=== PATIENT | female | born 1990 | race Caucasian/White ===

== ENCOUNTER 2019-10-22 09:29 | Outpatient (RCR) | payer OTHER, SELFPAY ==
[2019-10-22 11:02] LABS: Hematocrit 35.9 % (37.0-47.0); Hemoglobin 12.3 g/dL (12.0-15.0)
[2019-10-22 11:11] LABS: Glucose 1 Hour PP 50gm Dose 151 mg/dL
[2019-10-22 11:53] LABS: HIV 1/2 Ab P24 Ag Result Negative (Negative)
[2019-10-22] MEDS: RHO(D) IMMUNE GLOBULIN 300 MCG SYRINGE IM (16:02)
[2019-10-23 08:39] LABS: Rapid Plasma Reagin Non-Reactive (NonReactive)
== END 2020-01-20 23:59 | disposition home or self-care (01) ==
LOC: ANHLAB 09:29
PROVIDERS: PCP Internal Medicine; Visit Provider Obstetrics & Gynecology
DX: Z36.89 Encounter for other specified antenatal screening (principal); Z29.13 Encounter for prophylactic Rho(D) immune globulin; O36.0130 Maternal care for anti-D [Rh] antibodies, third trimester, not applicable or unspecified; Z3A.00 Weeks of gestation of pregnancy not specified
CPT/HCPCS: 36415; 82947; 85014; 85018; 86592; 86703; 86850; 86900; 86901; 90384; 96372; G0432; J2790

== ENCOUNTER 2020-01-07 09:07 | Outpatient (CLI) | payer OTHER, SELFPAY ==
[2020-01-07 09:26] LABS: Basophils Absolute Auto 0.1 K/mm3 (0.0-0.1); Basophils Percent Auto 0.5 % (0.2-1.2); Eosinophils Absolute Auto 0.1 K/mm3 (0-0.3); Eosinophils Percent Auto 0.3 % (0-4.4); Hematocrit 39.5 % (37.0-47.0); Hemoglobin 13.5 g/dL (12.0-15.0); Immature Granulocyte Absolute 0.33 K/mm3 (0.00-0.031); Immature Granulocyte Percent A 2.2 % (0-0.5); Lymphocytes Absolute Auto 2.51 K/mm3 (0.9-3.2); Lymphocytes Percent Auto 17.1 % (18.3-44.2); Mean Corpuscular HGB Conc 34.2 g/dl (32-36); Mean Corpuscular Hemoglobin 33.5 pg (26-34); Mean Platelet Volume 9.8 fl (7.4-10.4); Monocytes Absolute Auto 0.9 K/mm3 (0.1-0.6); Monocytes Percent Auto 5.9 % (2.6-8.5); Neutrophils Absolute Auto 10.9 K/mm3 (1.3-6.7); Platelet Count Result 222 k/mm3 (150-375); Red Blood Count 4.03 M/mm3 (4.2-5.4); Red Cell Distribution Width 13.1 % (11.5-14.5); White Blood Count 14.7 K/mm3 (4.5-10.0)
[2020-01-09 06:54] LABS: Rapid Plasma Reagin Non-Reactive (NonReactive)
== END 2020-01-07 09:08 | disposition home or self-care (01) ==
PROVIDERS: PCP Internal Medicine; Visit Provider Obstetrics & Gynecology
DX: Z34.93 Encounter for supervision of normal pregnancy, unspecified, third trimester (principal); Z3A.00 Weeks of gestation of pregnancy not specified
CPT/HCPCS: 36415; 85025; 86592; 86900; 86901

== ENCOUNTER 2020-01-08 05:35 | Inpatient (IN) | payer OTHER, SELFPAY ==
--- NOTE | 2019-12-17 16:12 | PC.NURSE ---
PATIENT STATES BABY IS BREECH AT THIS TIME. PATIENT STATES SHE IS HAVING AN ULTRASOUND ON MONDAY AND IF BABY IS STILL BREECH SHE WILL BE A SCHEDULE C/S INSTRUCTED PATIENT IF SHE IS A C/S ,SHE WILL NEED TO GET LABS DRAWN THE DAY BEFORE SURGERY, IF SURGERY IS ON MONDAY-LABS DRAWN ON MONDAY--REQUISITION GIVEN TO PATIENT. PATIENT INSTRUCTED SHE WILL NEED TO BE IN OB 2 HOURS BEFORE SURGERY AND NOTHING BY MOUTH AT MIDNIGHT THE NIGHT BEFORE SURGERY. PATIENT VERBALIZED HER UNDERSTANDING
[2020-01-08] VITALS (28 sets, daily range): BP systolic 101–144; BP diastolic 49–84; PULSE 68–104; RESP 16–20; TEMP 36.8–37.2; O2SAT 97–100; BMI 28.3
--- NOTE | 2020-01-08 06:39 | LDADM ---
This patient, Love Dhaliwal, was admitted to Labor/Delivery/Recovery 120 on 01/08/20 at 05:35. Plans for labor, pain management and were discussed with patient. Patient/family oriented to hospital policies and general routines including ID bracelet, bed and alarms, visiting hours, pain management, procedures, bathroom and other care routines, personal items, smoking policy, room service/diet and guest tray routines, infant security routines, and visiting hours. Patient/Family are encouraged to report perceived risks to care and to ask questions if they do not understand what they are told or what they should do. See OBIX for further documentation.
[2020-01-08] MEDS: LACTATED RINGERS 1,000 ML 125 ML IV CONT ×2 (06:59→07:26)
--- NOTE | 2020-01-08 07:16 | WPDANESEPPF ---
Anes - Initial Pre Proc Eval Procedure: Operation Date: 01/08/20 07:30 Proposed Procedures p Primary Section - Senait Begum MD Date/Time: 01/08/20 07:16 Surgeon: Senait Begum MD Pre Op Diagnosis: Patient Data Age: 29 Gender: F Height: 5 ft 4 in Weight: 75 kg Last Vital Signs Temp 36.9 C 01/08/20 06:48 Pulse 92 01/08/20 06:48 Resp 16 01/08/20 06:48 BP 128/69 01/08/20 06:48 Pulse Ox 100 01/08/20 06:48 Allergies Allergy/AdvReac Type Severity Reaction Status Date / Time No Known Allergies Allergy Verified 12/17/19 15:39 Home Medications Medication Instructions Recorded Confirmed Type PNV cmb#95-ferrous fumarate-FA 1 tablet PO DAILY 12/17/19 12/17/19 History [] Patient hx anesthesia problems: none Family hx anesthesia problems: none PMFSH Family History Family History Grandparent Diabetes mellitus Mother Rheumatoid arthritis Social History Social History Smoking status: Never smoker Alcohol intake: current Substance use: never Gender identity (if verbalized by the patient): Female Spiritual care concerns: No Anes - Eval Final PreProcedure Day of Procedure 01/08/20 07:16 Patient weight: overweight Heart: regular rate and rhythm Lungs: clear to auscultation Airway: Mallampati scale class II Neurological: alert and oriented Last oral intake: >/= 8 hours ASA classification: II Emergent: no Anesthetic plan: proceed Anesthesia type and monitoring: regional spinal and standard monitoring Informed Consent: The patient's anesthetic plan and its attendant risks and benefits were discussed with the patient/family/POA. Questions were solicited and answers provided to the satisfaction of the patient/family/POA.
--- NOTE | 2020-01-08 07:25 | PM.IMHP ---
H&P: HPI History of Present Illness Chief complaint: Narrative: Love Dhaliwal is a 29 year old female 1 at term with a baby in the breech presentation. It is ronnie breech. We have agreed to perform delivery. She understands that injuries may result from the surgery. She understands that injuries can result in hospitalization, severe illness, and more surgery. She understands risk of hemorrhage and infection. Review of Systems Constitutional: Constitutional: Reports no additional constitutional complaints, Denies fatigue, Denies headache(s), Denies lethargy and Denies weakness Eyes: Eyes: Reports no additional eye complaints, Denies blurry vision and Denies photophobia ENT: Reports as per HPI, Denies headache(s) and Denies neck pain Cardiovascular: Cardiovascular: Denies chest pain, Denies diaphoresis, Denies leg edema, Denies palpitations and Denies dyspnea Respiratory: Respiratory: Denies hemoptysis, Denies dyspnea and Denies wheezing Gastrointestinal: Gastrointestinal: Denies abdominal pain, Denies melena, Denies bloating, Denies hematochezia, Denies nausea and Denies vomiting Genitourinary: Genitourinary: Reports no additional female genitourinary complaints Musculoskeletal: Musculoskeletal: Denies joint swelling, Denies neck pain, Denies numbness and Denies stiffness Neurologic: Denies Abnormal speech present, Denies confusion, Denies headache(s), Denies numbness and Denies weakness Psychiatric: Psychiatric: Denies anxiety, Denies confusion, Denies depression, Denies homicidal ideation and Denies suicidal ideation Endocrine: Endocrine: Denies fatigue and Denies palpitations Allergic/Immunologic: Allergic/Immunologic: Denies wheezing [facility] Family History Family History Grandparent Diabetes mellitus Mother Rheumatoid arthritis Social History Social History Smoking status: Never smoker Alcohol intake: current Substance use: never Gender identity (if verbalized by the patient): Female Spiritual care concerns: No Meds Home Medications and Allergies Home Medications Medication Instructions Recorded Confirmed Type PNV cmb#95-ferrous fumarate-FA 1 tablet PO DAILY 12/17/19 12/17/19 History [] Allergies Allergy/AdvReac Type Severity Reaction Status Date / Time No Known Allergies Allergy Verified 12/17/19 15:39 Vital Signs Vital Signs - 24 hr 01/08/20 06:01 01/08/20 06:16 01/08/20 06:48 Temperature 98.4 F Pulse Rate 92 95 92 Respiratory Rate 16 Blood Pressure 128/69 120/78 128/69 Pulse Oximetry 100 Exam Const: General: healthy appearing, comfortable and no acute distress; No confusion Orientation/consciousness: No confusion Eyes: Direct Ophthalmoscopy: No photophobia Resp: Auscultation: clear to auscultation bilaterally, no rales, no rhonchi and no wheezes Cardio: Rate: regular rate Heart sounds: no click, no murmurs and no rubs GI: Inspection: non-distended GI Palp: No abdominal tenderness Auscultation: normal bowel sounds Neuro: General: No confusion Speech: No Abnormal speech present Extrem: General: normal to inspection, no pedal edema and no calf tenderness Assessment and Plan Assessment and plan (1) Term : Code(s): Z34.90 - Encounter for supervision of normal , unspecified, unspecified trimester Status: Acute (2) Breech presentation: Code(s): O32.1XX0 - Maternal care for breech presentation, not applicable or unspecified Status: Acute Assessment and Plan: This patient is a 29-year-old female 1 at term with a in the breech position. We have agreed to perform delivery. She understands the risks, benefits, and alternatives. She has completed the informed consent process is ready to proceed.
--- NOTE | 2020-01-08 08:46 | PM.PROC ---
Procedure Note - Detailed Date of procedure: 01/08/20 Pre-op diagnosis: Breech Presentation, Term Gestation Post-op diagnosis: same Procedure performed: low-transverse delivery Description of procedure: The patient was taken the operating room. She was prepped and draped in the dorsal supine position with leftward tilt after induction of spinal anesthetic. When anesthesia was found to be adequate a low-transverse skin incision was made and carried down to the level the fascia with the knife. The fascial incision was made at the midline with a scalpel. The fascial incision was extended laterally with [place] scissors. The fascia was tented upward superior and inferior with Mayra clamps. The rectus muscles were dissected off bluntly. The rectus muscles at the midline. The preperitoneal fat was dissected bluntly at the superior aspect of the separate the rectus muscles. The peritoneal cavity was entered bluntly in the same area. The peritoneal incision was extended superior and inferior with good visualization of bladder. Bladder blade was inserted. A low-transverse incision was made on the uterus with the scalpel. It was carried down the level of the amniotic cavity with a knife. The amniotic cavity bluntly. The uterine incision was made laterally with blunt traction. The was delivered. The cord was clamped and cut. The infant was handed off to waiting pediatric staff. Cord bloods were obtained. The placenta was removed manually. The uterus was exteriorized. Uterus cleared of all clots and debris. Uterus closed in 0 Vicryl in a running locked fashion. An imbricating layer of 0 Vicryl was also placed on the to bolster the closure. The uterus was returned to the abdomen. The gutters were cleared of all clots and debris. The fascia was closed 0 Vicryl in a running fashion. Subcutaneous tissue was irrigated and bleeding areas were cauterized. The skin was closed with subcuticular absorbable umesh. The incision was covered with derma redmond. The patient tolerated the procedure well. She was taken recovery room stable condition. Sponge, lap, needle counts were correct x2. Anesthesia: spinal Surgeon: Senait Begum MD Estimated blood loss (mL): 740 Drains: No Packing: No Pathology: none sent Complications: No immediate complications Condition: stable Disposition: floor Findings: Normal maternal anatomy. Average size with normal Apgars in Breech presentation. No gross evidence of abruption.
[2020-01-08] MEDS: KETOROLAC 30 MG/ML VIAL (*BKC) IV PUSH (11:05)
--- NOTE | 2020-01-08 12:15 | PC.NURSE ---
Mother called out for assist with latching. Mother state eagerly latches to right breast without difficulties or discomfort. Mother has pain with left breast. Left nipple has less profile and is more firm than right. Reviewed may need assist with deeper latch and assist with maintaining. Reviewed infant feeding cues, frequencies, duration of feedings, feeding elimination flow sheet, and signs of adequate intake. Demonstrated stimulation techniques to wake for feeding. Assisted with infant to breast. Reviewed positioning/alignment in football, holding breast in C hold and guided asymmetrical latch on. Discussed rational for each. Infant was able to latch correctly. Infant nursed eagerly, with steady draws and frequent swallowing noted. Mother reported much less pain with feeding. Reviewed signs of a correct latch, effective nursing and suck swallow ratio. was able to maintain latch without discomfort to mother. Nipple care reviewed. Suggested to stimulate to keep infant awake and nursing effectively for increased intake and assist with maintaining deep latch. Instructed mother to call out for RN assistance if she is unable to latch for feeding or she has discomfort with nursing. Instructed feeding should be initiated three hours from start of last feeding or if feeding cues are noted before. Mother voiced understanding of information shared.
--- NOTE | 2020-01-08 12:25 | PC.NURSE ---
01/08/20 @ 1045 WHILE PREPARING TO GO UPSTAIRS (REPORT GIVEN) PT C/O PAIN AT FUNDUS (4-5), CALLED DR DODSON FOR ORDER FOR TORADOL RECEIVED AND GIVEN (SEE MAR).
[2020-01-08] MEDS: OXYTOCIN 30 UNITS/NS 500 ML 30 UNITS/500 ML BAG 125 UNITS IV CONT (12:36)
--- NOTE | 2020-01-08 13:08 | PC.NURSE ---
This patient, Love Dhaliwal, was received from [Labor Delivery ] on 01/08/20 at 1130. Personal belongings list checked and signed. Patient/family oriented to unit policies and routines
[2020-01-08] MEDS: DOCUSATE SODIUM 100 MG CAPSULE PO (16:49)
[2020-01-09 04:57] VITALS: BP 107/51; PULSE 88; RESP 16; TEMP 37
[2020-01-09] MEDS: IBUPROFEN 600 MG TABLET PO ×3 (05:18→18:28)
[2020-01-09 05:25] LABS: Basophils Percent Auto 0.3 % (0.2-1.2); Eosinophils Percent Auto 0.3 % (0-4.4); Hematocrit 28.7 % (37.0-47.0); Hemoglobin 9.9 g/dL (12.0-15.0); Immature Granulocyte Absolute 0.21 K/mm3 (0.00-0.031); Immature Granulocyte Percent A 1.3 % (0-0.5); Lymphocytes Absolute Auto 2.97 K/mm3 (0.9-3.2); Lymphocytes Percent Auto 18.6 % (18.3-44.2); Mean Corpuscular HGB Conc 34.5 g/dl (32-36); Mean Corpuscular Hemoglobin 33.6 pg (26-34); Mean Corpuscular Volume 97.3 fl (80-100); Mean Platelet Volume 10.1 fl (7.4-10.4); Monocytes Percent Auto 6.3 % (2.6-8.5); Neutrophils Absolute Auto 11.7 K/mm3 (1.3-6.7); Neutrophils Percent Auto 73.2 % (45.5-73.1); Platelet Count Result 186 k/mm3 (150-375); Red Blood Count 2.95 M/mm3 (4.2-5.4); Red Cell Distribution Width 12.9 % (11.5-14.5)
--- NOTE | 2020-01-09 07:36 | PM.OBPNVD ---
OB - PN: Subj Subjective Date/time seen: 01/09/20 07:36 Patient comments: no complaints, pain well controlled, tolerating diet and flatus present OB - PN: Obj Data Labs CBC & Chem 7: 01/09/20 05:12 Labs: Laboratory Results - last 24 hr 01/09/20 01/09/20 05:12 05:12 WBC 16.0 H RBC 2.95 L Hgb 9.9 L D Hct 28.7 L MCV 97.3 MCH 33.6 MCHC 34.5 RDW 12.9 Plt Count 186 MPV 10.1 Immature Gran % (Auto) 1.3 H Neut % (Auto) 73.2 H Lymph % (Auto) 18.6 [place] % (Auto) 6.3 Eos % (Auto) 0.3 Baso % (Auto) 0.3 Lymph # (Auto) 2.97 [place] # (Auto) 1.0 H Eos # (Auto) 0.0 Baso # (Auto) 0.0 Abs Immat Gran (auto) 0.21 H Absolute Neuts (auto) 11.7 H Absolute Nucleated RBC 0.0 Nucleated RBC % 0.0 Blood Type Cancelled Rho(D) Type Cancelled Antibody Screen Cancelled Screen Cancelled Baby's Blood Type Cancelled Baby's VAMSHI Cancelled Doses of RhIg Required Cancelled OB - PN A/P Plan day: 1 Comments: Post Op LTCS - no problems, routine recovery Time Spent With Patient Time: Total time spent is greater than 50% in coordination of care (as documented) at patient's floor/unit and/or counseling patient: Exam Const: General: cooperative, healthy appearing, comfortable and no acute distress Resp: Auscultation: no crackles, no rales, no rhonchi and no wheezes Cardio: Rhythm: regular rhythm Heart sounds: no click and no murmurs GI: Inspection: non-distended Auscultation: normal bowel sounds Extrem: General: normal to inspection, no pedal edema and no calf tenderness
[2020-01-09 07:50] VITALS: BP 120/67; PULSE 84; RESP 18; TEMP 37.4; O2SAT 95
[2020-01-09] MEDS: POLYSACCHARIDE IRON COMPLEX 150 MG CAPSULE PO ×2 (08:44→15:12)
[2020-01-09] MEDS: MULTIVIT/MIN/PREN/FOL AC/IRON TABLET 1 TAB PO (08:45)
[2020-01-09] MEDS: DOCUSATE SODIUM 100 MG CAPSULE PO ×2 (08:45→15:12)
--- NOTE | 2020-01-09 09:35 | PC.NURSE ---
Mother called out for assist with feeding. Mother continues to struggle with latch on to left breast. Assisted with to breast. Reviewed positioning/alignment in cross cradle, holding breast U hold and guided asymmetrical latch on. Several attempts before, infant was able to latch correctly. Infant nursed eagerly, with steady draws and frequent swallowing noted. Reviewed signs of a correct latch, effective nursing and suck swallow ratio. Infant was able to maintain latch without discomfort to mother. Nipple care reviewed. Instructed mother to call out for RN assistance if she is unable to latch for feeding or she has discomfort with nursing. Instructed feeding should be initiated three hours from start of last feeding or if feeding cues are noted before. Mother voiced understanding of information shared.
--- NOTE | 2020-01-09 14:00 | WPDANLDNPN2 ---
Anes-Prog Note L&D-Neuraxial Date/Time: 01/09/20 14:00 Neuraxial medications: intrathecal PF morphine Opiod-related complaints: none Patient feedback: Patient satisfied with post-operative pain management.
[2020-01-09] MEDS: RHO(D) IMMUNE GLOBULIN 300 MCG SYRINGE IM (15:11)
[2020-01-09 20:30] VITALS: BP 110/57; PULSE 92; RESP 16; TEMP 36.8
[2020-01-10] MEDS: IBUPROFEN 600 MG TABLET PO ×2 (03:21→12:19)
[2020-01-10] MEDS: DOCUSATE SODIUM 100 MG CAPSULE PO (07:06)
[2020-01-10] MEDS: MULTIVIT/MIN/PREN/FOL AC/IRON TABLET 1 TAB PO (07:06)
[2020-01-10] MEDS: POLYSACCHARIDE IRON COMPLEX 150 MG CAPSULE PO (07:07)
--- NOTE | 2020-01-10 07:25 | P.DS_ITS ---
DS: Diagnosis Admitting Diagnosis Admitting Diagnosis: Encounter for supervision of normal , unspecified, unspecified trimester OB - DS: Summary OB Procedures : None OB Procedures Intrapartum: OB Procedures: : None Peripartum Data Procedures: Procedures Operation Date: 01/08/20 07:30 Actual Procedures Side Surgeon p Primary Section Bilateral Senait Begum MD Time Spent with Patient Time attestation: Total time spent providing and/or coordinating discharge services: DS: Data Data Completed and Pending Labs on day of discharge: Labs from last 24 hours 01/09/20 05:12 Blood Type A Negative Antibody Screen TNP Screen Negative Baby's Blood Type A pos Baby's VAMSHI Negative Doses of RhIg Required 1 Discharge Plan Discharge Attending physician on discharge: Senait Begum Discharging Clinician: Sweta Lange Patient Disposition: Home, Self-Care Activity: pelvic rest Diet: regular Wound Care Instructions: follow printed instructions Patient Instructions: Antibiotic Form Stand Alone Forms: General Discharge Information Follow-up/Referrals: Sweta Lange CNM [Certified Nurse Rn Wound Care] - Senait Begum MD [Physician] - 1 Week Discharge Medications: New hydrocodone-acetaminophen 5-325 mg Tablet 1 tablet PO Q3H PRN (Reason: Moderate Pain (4-6)) Qty: 15 RF: 0 Continued PNV cmb#95-ferrous fumarate-FA [] 28 mg iron- 800 mcg Tablet 1 tablet PO DAILY RF: 0 Date of admission: 01/08/20 05:35 Primary Care Provider: Eriberto,Caleb Cabrera Admitting Provider: Senait Begum Attending physician on admission: Senait Begum
--- NOTE | 2020-01-10 07:27 | PM.OBPNVD ---
OB - PN: Subj Subjective Date/time seen: 01/10/20 07:27 OB - PN: Obj Data Labs CBC & Chem 7: 01/09/20 05:12 Labs: Laboratory Results - last 24 hr 01/09/20 05:12 Blood Type A Negative Antibody Screen TNP Screen Negative Baby's Blood Type A pos Baby's VAMSHI Negative Doses of RhIg Required 1 OB - PN A/P Plan Plan: discharge home Time Spent With Patient Time: Total time spent is greater than 50% in coordination of care (as documented) at patient's floor/unit and/or counseling patient: Review of Systems Review of Systems: All systems reviewed & are unremarkable except as noted in HPI and below Constitutional: Constitutional: Reports as per HPI Cardiovascular: Cardiovascular: Reports as per HPI Gastrointestinal: Gastrointestinal: Reports as per HPI Exam Const: General: comfortable Resp: Effort & Inspection: normal respiratory effort Psych: Appearance: grossly normal Affect: normal affect Judgement: Good judgement present (Psych)
--- NOTE | 2020-01-10 07:52 | P.DS_ITS ---
DS: Diagnosis Admitting Diagnosis Admitting Diagnosis: Encounter for supervision of normal , unspecified, unspecified trimester Discharge Diagnosis (1) Breech presentation: Code(s): O32.1XX0 - Maternal care for breech presentation, not applicable or unspecified Status: Acute (2) Term delivered: Code(s): O80 - Encounter for full-term uncomplicated delivery Status: Acute OB - DS: Summary OB Procedures : None OB Procedures Intrapartum: OB Procedures: : None Peripartum Data Infant Delivery Method: Section Laceration description: None Procedures: Procedures Operation Date: 01/08/20 07:30 Actual Procedures Side Surgeon p Primary Section Bilateral Senait Begum MD Status at Discharge Functional status at discharge: independent ambulation Time Spent with Patient Time attestation: Total time spent providing and/or coordinating discharge services: DS: Data Data Completed and Pending Labs on day of discharge: Labs from last 24 hours 01/09/20 05:12 Blood Type A Negative Antibody Screen TNP Screen Negative Baby's Blood Type A pos Baby's VAMSHI Negative Doses of RhIg Required 1 Discharge Plan Discharge Attending physician on discharge: Senait Begum Discharging Clinician: Sweta Lange Patient Disposition: Home, Self-Care Activity: pelvic rest Diet: regular Wound Care Instructions: follow printed instructions Patient Instructions: Antibiotic Form Stand Alone Forms: General Discharge Information Follow-up/Referrals: Senait Begum MD [Physician] - 1 Week Sweta Lange CNM [Certified Nurse Utility Operator] - Discharge Medications: New hydrocodone-acetaminophen 5-325 mg Tablet 1 tablet PO Q3H PRN (Reason: Moderate Pain (4-6)) Qty: 15 RF: 0 Continued PNV cmb#95-ferrous fumarate-FA [] 28 mg iron- 800 mcg Tablet 1 tablet PO DAILY RF: 0 Date of admission: 01/08/20 05:35 Primary Care Provider: Eriberto,Caleb Cabrera Admitting Provider: Senait Begum Attending physician on admission: Senait Begum
[2020-01-10 08:15] VITALS: BP 116/57; PULSE 83; RESP 18; TEMP 37.2
--- NOTE | 2020-01-10 09:30 | PC.NURSE ---
Observed mother is able to independently latch with appropriate positioning/alignment. She denies any nipple discomfort, is feeding as required and waking infant to feed if needed. has had 8 effective feedings in the past 24 hours, and is currently meeting outcomes for weight, output, jaundice and feeding frequencies. Mother states she feels confident to continue effective at home. Reviewed transition to breast milk, signs of adequate intake, and engorgement/relief. Instructed to call ICP if intake/output less than required. Reviewed regular medications mother is taking. Information provided per Suzan. Reviewed community resources on the [facility] website and in the Mom/Baby guide. Information on outpatient services provided. Mother has no further questions at this time.
[2020-01-11 10:29] VITALS: BP 134/62; PULSE 72; RESP 18; TEMP 36.8
== END 2020-01-10 12:32 | disposition home or self-care (01) | DRG 788 ==
LOC: ANHLDR 05:51 → ANHOB2 11:16
PROVIDERS: Admitting Provider Obstetrics & Gynecology; PCP Internal Medicine; Visit Provider Obstetrics & Gynecology
PROC: 10D00Z1 Extraction of Products of Conception, Low, Open Approach (ICD-10-PCS; CPT 59514; principal; 2020-01-08 07:30)
DX: O32.1XX0 Maternal care for breech presentation, not applicable or unspecified (principal); Z37.0 Single live birth; Z3A.39 39 weeks gestation of pregnancy
CPT/HCPCS: 36415; 85025; 85461; 86900; 86901; 90384; A9270; J0131; J1100; J1200; J1885; J2274; J2370; J2405; J2590; J2790; J7120

== ENCOUNTER 2020-12-05 09:00 | Outpatient (CLI) | payer OTHER, SELFPAY ==
[2020-12-05 09:15] LABS: Basophils Absolute Auto 0.1 K/mm3 (0.0-0.1); Basophils Percent Auto 0.7 % (0.2-1.2); Eosinophils Absolute Auto 0.2 K/mm3 (0-0.3); Eosinophils Percent Auto 2.4 % (0-4.4); Hematocrit 41.9 % (37.0-47.0); Hemoglobin 14.4 g/dL (12.0-15.0); Immature Granulocyte Absolute 0.03 K/mm3 (0.00-0.031); Immature Granulocyte Percent A 0.4 % (0-0.5); Lymphocytes Absolute Auto 2.96 K/mm3 (0.9-3.2); Lymphocytes Percent Auto 39.3 % (18.3-44.2); Mean Corpuscular HGB Conc 34.4 g/dl (32-36); Mean Corpuscular Hemoglobin 31.6 pg (26-34); Mean Corpuscular Volume 91.9 fl (80-100); Mean Platelet Volume 8.7 fl (7.4-10.4); Monocytes Absolute Auto 0.5 K/mm3 (0.1-0.6); Monocytes Percent Auto 6.1 % (2.6-8.5); Neutrophils Absolute Auto 3.9 K/mm3 (1.3-6.7); Neutrophils Percent Auto 51.1 % (45.5-73.1); Platelet Count Result 257 k/mm3 (150-375); Red Blood Count 4.56 M/mm3 (4.2-5.4); Red Cell Distribution Width 12.4 % (11.5-14.5); White Blood Count 7.5 K/mm3 (4.5-10.0)
[2020-12-05 09:27] LABS: Alanine Aminotransferase 25 U/L (4-35); Albumin Level 4.5 g/dL (3.5-5.1); Alkaline Phosphatase 55 U/L (38-126); Amylase 72 U/L (30-110); Anion Gap 3 mmol/L (8-16); Aspartate Amino Transferase 31 U/L (14-36); Bilirubin,Total 0.6 mg/dL (0.2-1.3); Blood Urea Nitrogen 15 mg/dL (7-17); Calcium 9.7 mg/dL (8.4-10.2); Carbon Dioxide 34 mmol/L (22-30); Chloride 103 mmol/L (98-107); Cholesterol 184 mg/dL (0-200); Estimated Glomerular Filt Rate > 60; Glucose 92 mg/dL (65-105); HDL Direct 57 mg/dL; Lipase 54 U/L (23-300); Potassium 4.2 mmol/L (3.4-5.0); Sodium 140 mmol/L (137-145); Triglycerides 55 mg/dL (<150)
[2020-12-05 09:38] LABS: LDL Cholesterol Direct 96 mg/dL
== END 2020-12-05 09:01 | disposition home or self-care (01) ==
PROVIDERS: PCP Internal Medicine; Visit Provider Internal Medicine
DX: R10.9 Unspecified abdominal pain (principal); Z13.220 Encounter for screening for lipoid disorders
CPT/HCPCS: 36415; 80053; 80061; 82150; 83690; 85025

== ENCOUNTER → 2020-12-10 08:34 | Outpatient (CLI) | payer OTHER, SELFPAY ==
--- NOTE | ~2020-12-10 | CT_ITS ---
EXAMINATION: CT abdomen pelvis w con EXAM DATE: 12/10/2020 08:59 INDICATION: Mid abdominal pain, bilateral flank pain, pelvic tenderness. History and append ectomy. Diarrhea. TECHNIQUE: Spiral CT of the abdomen and pelvis was performed following intravenous injection of 100 m L Omnipaque 350. Axial, coronal and sagittal images were reviewed. The dose-length product (DLP) fo r this examination was 289.37 mGy-cm. The exposure was tailored according to patient size (auto mA e xposure control), and iterative reconstruction (ASIR) was used as additional dose reduction technique . Comparison is made to prior examination from 02/13/2019. FINDINGS: The liver, spleen, adrenal glands and pancreas are unremarkable. Gallbladder is unremarkab le. No biliary obstruction. Portal and splenic veins are patent. Kidneys enhance symmetrically. T here is no hydronephrosis. The uterus is anteverted and morphologically normal. The bladder is un remarkable. There is no retroperitoneal or pelvic lymphadenopathy. Small umbilical fat-containing he rnia. There are no findings to suggest appendicitis. The stomach and small bowel are unremarkable. There is expected amount of colonic stool. No free intraperitoneal gas. The heart is normal in size. T here are no pericardial or pleural effusions. The lung bases are unremarkable. The bones are unrema rkable. IMPRESSION: 1. No acute intra-abdominal findings. Reviewed, dictated and finalized at location A.
== END ==
PROVIDERS: PCP Internal Medicine; Visit Provider Internal Medicine
DX: R10.9 Unspecified abdominal pain (principal)
CPT/HCPCS: 74177; Q9967

== ENCOUNTER 2021-11-29 08:38 | Outpatient (RCR) | payer OTHER, SELFPAY ==
[2021-11-29 10:59] LABS: Hematocrit 34.3 % (37.0-47.0); Hemoglobin 11.3 g/dL (12.0-15.0)
[2021-11-29 11:14] LABS: Glucose 1 Hour PP 50gm Dose 149 mg/dL
[2021-11-29 11:50] LABS: HIV 1/2 Ab P24 Ag Result Negative (Negative)
[2021-11-29] MEDS: RHO(D) IMMUNE GLOBULIN 300 MCG/2 ML SYRINGE IM (13:55)
[2021-11-30 10:36] LABS: Rapid Plasma Reagin Non-Reactive (NonReactive)
== END 2022-02-27 23:59 | disposition home or self-care (01) ==
LOC: ANHLAB 08:38
PROVIDERS: PCP Internal Medicine; Visit Provider Obstetrics & Gynecology
DX: Z11.4 Encounter for screening for human immunodeficiency virus [HIV] (principal); Z29.13 Encounter for prophylactic Rho(D) immune globulin; O36.0190 Maternal care for anti-D [Rh] antibodies, unspecified trimester, not applicable or unspecified; Z3A.00 Weeks of gestation of pregnancy not specified
CPT/HCPCS: 36415; 82947; 85014; 85018; 85461; 86592; 86703; 90384; 96372; G0432; J2790

== ENCOUNTER 2022-01-17 16:55 | Outpatient (CLI) | payer OTHER, SELFPAY ==
--- NOTE | ~2022-01-17 | US_ITS ---
EXAMINATION: US venous doppler LE RT DATE: 01/17/2022 17:46 INDICATION: Right lower limb swelling TECHNIQUE: Knox scale images without and with compression and Doppler images of the right lower extre mity veins were obtained. COMPARISON: None FINDINGS: The right common femoral vein, profunda femoral vein, femoral vein, popliteal vein, peronea l trunk, posterior tibial veins, and greater saphenous vein are patent. IMPRESSION: 1. Patent right lower extremity veins. No evidence of deep venous thrombosis. Reviewed, dictated and finalized at location F.
== END 2022-01-17 16:56 | disposition home or self-care (01) ==
LOC: ANHIMG 17:02
PROVIDERS: PCP Internal Medicine; Visit Provider Obstetrics & Gynecology
DX: R60.0 Localized edema (principal)
CPT/HCPCS: 93971

== ENCOUNTER 2022-01-29 08:34 | Outpatient (CLI) | payer OTHER, SELFPAY ==
[2022-01-29 09:14] LABS: Hematocrit 36.2 % (37.0-47.0); Hemoglobin 12.4 g/dL (12.0-15.0); Mean Corpuscular HGB Conc 34.3 g/dl (32-36); Mean Corpuscular Hemoglobin 33.4 pg (26-34); Mean Corpuscular Volume 97.6 fl (80-100); Mean Platelet Volume 9.8 fl (7.4-10.4); Platelet Count Result 201 k/mm3 (150-375); Red Blood Count 3.71 M/mm3 (4.2-5.4); Red Cell Distribution Width 13.6 % (11.5-14.5); White Blood Count 12.2 K/mm3 (4.5-10.0)
[2022-01-31 08:20] LABS: Rapid Plasma Reagin Non-Reactive (NonReactive)
== END 2022-01-29 08:35 | disposition home or self-care (01) ==
LOC: ANHLAB 08:36
PROVIDERS: PCP Internal Medicine; Visit Provider Obstetrics & Gynecology
DX: Z34.93 Encounter for supervision of normal pregnancy, unspecified, third trimester (principal); Z3A.00 Weeks of gestation of pregnancy not specified
CPT/HCPCS: 36415; 85027; 86592; 86850; 86880; 86900; 86901; 86902

== ENCOUNTER 2022-02-05 11:40 | Outpatient (CLI) | payer OTHER, SELFPAY ==
[2022-02-05 11:57] LABS: Hematocrit 36.1 % (37.0-47.0); Hemoglobin 12.1 g/dL (12.0-15.0); Mean Corpuscular HGB Conc 33.5 g/dl (32-36); Mean Corpuscular Volume 98.4 fl (80-100); Mean Platelet Volume 9.6 fl (7.4-10.4); Platelet Count Result 174 k/mm3 (150-375); Red Blood Count 3.67 M/mm3 (4.2-5.4); Red Cell Distribution Width 13.5 % (11.5-14.5); White Blood Count 11.9 K/mm3 (4.5-10.0)
[2022-02-07 09:45] LABS: Rapid Plasma Reagin Non-Reactive (NonReactive)
== END 2022-02-05 11:41 | disposition home or self-care (01) ==
LOC: ANHLAB 11:43
PROVIDERS: PCP Internal Medicine; Visit Provider Obstetrics & Gynecology
DX: O34.219 Maternal care for unspecified type scar from previous cesarean delivery (principal); Z3A.00 Weeks of gestation of pregnancy not specified
CPT/HCPCS: 36415; 85027; 86592; 86850; 86880; 86900; 86901; 86902

== ENCOUNTER 2022-02-07 09:57 | Inpatient (IN) | payer OTHER, SELFPAY ==
--- NOTE | 2022-01-15 12:49 | PC.NURSE ---
Verified with OR schedule and patient--C/S on 02/07/22 at 1200 Patient given requisition for lab draw on 02/05/22
[2022-02-07] VITALS (21 sets, daily range): BP systolic 74–115; BP diastolic 49–81; PULSE 44–88; RESP 9–21; TEMP 36–36.9; O2SAT 97–100; BMI 28.0
--- NOTE | 2022-02-07 10:22 | LDADM ---
This patient, Love Dhaliwal, was admitted to Labor/Delivery/Recovery 120 on 02/07/22 at 09:57. Plans for labor, pain management and were discussed with patient. Patient/family oriented to hospital policies and general routines including ID bracelet, bed and alarms, visiting hours, pain management, procedures, bathroom and other care routines, personal items, smoking policy, room service/diet and guest tray routines, infant security routines, and visiting hours. Patient/Family are encouraged to report perceived risks to care and to ask questions if they do not understand what they are told or what they should do. See OBIX for further documentation.
[2022-02-07] MEDS: LACTATED RINGERS 1,000 ML 999 ML IV CONT (10:43)
--- NOTE | 2022-02-07 11:32 | WPDANESEPPF ---
Anes - Initial Pre Proc Eval Procedure: Operation Date: 02/07/22 12:00 Proposed Procedures p Repeat Section - Senait Begum MD Date/Time: 02/07/22 11:32 Surgeon: Senait Begum MD Pre Op Diagnosis: Repeat C/S Patient Data Age: 31 Gender: F Height: 1.63 m Weight: 74 kg Last Vital Signs Pulse 75 02/07/22 11:00 BP 109/63 02/07/22 11:00 Allergies Allergy/AdvReac Type Severity Reaction Status Date / Time No Known Allergies Allergy Verified 01/15/22 12:37 Home Medications Medication Instructions Recorded Confirmed Type PNV cmb#95-ferrous fumarate-FA 1 tablet PO DAILY 12/17/19 02/07/22 History [] Patient hx anesthesia problems: none Family hx anesthesia problems: none Results Review: All pre-operative results and documents have been reviewed as part of the pre-operative evaluation. [facility] Family History Family History Grandparent Diabetes mellitus Mother Rheumatoid arthritis Social History Social History Smoking status: Never smoker Alcohol intake: current Substance use: never Gender identity (if verbalized by the patient): Female Spiritual care concerns: No Anes - Eval Final PreProcedure Day of Procedure 02/07/22 11:32 Patient weight: overweight Heart: regular rate and rhythm Lungs: clear to auscultation Airway: Mallampati scale class II Neurological: alert and oriented Last oral intake: >/= 8 hours ASA classification: II Emergent: no Anesthetic plan: proceed Anesthesia type and monitoring: general, regional spinal and standard monitoring Results Review: All pre-operative results and documents have been reviewed as part of the pre-operative evaluation. Informed Consent: The patient's anesthetic plan and its attendant risks and benefits were discussed with the patient/family/POA. Questions were solicited and answers provided to the satisfaction of the patient/family/POA.
--- NOTE | 2022-02-07 12:00 | PM.IMHP ---
H&P: [facility] History of Present Illness Date/Time: 02/07/22 12:00 This patient is a 31-year-old multiparous female at 39 weeks gestation who presents for repeat delivery. She has a previous . She has no complaints. She denies any contractions, loss of fluid, vaginal bleeding. Reports good movement. Patient understands the risks. She understands that injuries may occur that result in hospitalization, more surgery, severe illness. Chief Complaint: Term Review of Systems Review of Systems: All systems reviewed & are unremarkable except as noted in HPI and below Constitutional: Constitutional: Denies chills, Denies fatigue, Denies fever(s) and Denies weakness Eyes: Eyes: Denies blurry vision, Denies change in vision, Denies loss of peripheral vision, Denies loss of vision, Denies other visual disturbances and Denies eye pain ENT: Denies vertigo, Denies dizziness, Denies hearing loss, Denies mouth pain, Denies nasal obstruction, Denies neck mass and Denies neck pain Cardiovascular: Cardiovascular: Denies chest pain, Denies diaphoresis, Denies syncope, Denies leg edema and Denies dyspnea Respiratory: Respiratory: Denies chest congestion, Denies cough, Denies hemoptysis, Denies dyspnea and Denies wheezing Gastrointestinal: Gastrointestinal: Denies abdominal pain, Denies constipation, Denies diarrhea, Denies nausea and Denies vomiting Genitourinary: Genitourinary: Denies hematuria, Denies change in libido, Denies nocturia, Denies genital lesions, Denies flank pain and Denies urinary urgency Musculoskeletal: Musculoskeletal: Denies abnormal gait, Denies back pain, Denies myalgias, Denies arthralgias, Denies joint swelling, Denies muscle weakness and Denies neck pain Integumentary/Breasts: Skin/Breast: Denies swelling, Denies breast pain, Denies breast mass, Denies dry skin, Denies nipple discharge, Denies unusual bruising and Denies jaundice Neurologic: Denies Neuro-related abnormal movements, Denies Abnormal speech present, Denies abnormal gait, Denies behavioral changes, Denies confusion, Denies vertigo, Denies dizziness, Denies syncope, Denies loss of vision, Denies memory loss, Denies convulsions and Denies weakness Psychiatric: Psychiatric: Denies abnormal sleep pattern, Denies behavioral changes, Denies change in libido, Denies confusion, Denies depression, Denies anhedonia and Denies memory loss Endocrine: Endocrine: Reports no additional endocrine complaints, Denies change in libido and Denies fatigue Hematologic/Lymphatic: Hematologic/Lymphatic: Reports no additional hematologic/lymphatic complaints Allergic/Immunologic: Allergic/Immunologic: Reports no additional allergic/immunologic complaints and Denies wheezing PMFSH Family History Family History Grandparent Diabetes mellitus Mother Rheumatoid arthritis Social History Social History Smoking status: Never smoker Alcohol intake: current Substance use: never Gender identity (if verbalized by the patient): Female Spiritual care concerns: No Meds Home Medications and Allergies Home Medications Medication Instructions Recorded Confirmed Type PNV cmb#95-ferrous fumarate-FA 1 tablet PO DAILY 12/17/19 02/07/22 History [] Allergies Allergy/AdvReac Type Severity Reaction Status Date / Time No Known Allergies Allergy Verified 01/15/22 12:37 Vital Signs Vital Signs - 24 hr 02/07/22 10:44 02/07/22 11:00 Pulse Rate 84 75 Blood Pressure 112/66 109/63 Exam Const: General: cooperative, healthy appearing, comfortable and no acute distress; No confusion Orientation/consciousness: oriented to person, oriented to place, oriented to time and No confusion HENMT: Head: normal to inspection Ears: external ears normal General nose exam: Normal external nose present Face and sinus: normal facial
--- NOTE | 2022-02-07 12:02 | WPDHPUPDATE1 ---
History and Physical Update Update Date/Time: 02/07/22 12:02 History and Physical has been reviewed, including an updated exam of the patient. There are NO changes in the patient's condition. Risks, benefits, and alternatives have been discussed and questions answered. Patient agrees to proceed with procedure.
--- NOTE | 2022-02-07 13:07 | W.PM.PROC2 ---
Procedure Note - Detailed Date of Procedure 02/07/22 Pre-op Diagnosis Repeat C/S Previous delivery, term gestation Post-op Diagnosis Same Procedure Performed Low-transverse section Surgeon Senait Begum MD Anesthesia Spinal Indications Previous delivery, term gestation Findings Normal gestational maternal anatomy, average size infant, normal Apgars. Description of Procedure The patient was taken the operating room. She was prepped and draped in dorsal supine position with a leftward tilt. This was done after spinal anesthetic was applied. A low-transverse skin incision was made and carried down till of the fascia with the knife. The fascial incision was made with the knife. The fascial incision was extended laterally with [place] scissors. The fascia was tented upward superiorly and inferiorly the rectus muscles were dissected off bluntly. The rectus muscles were the midline. The preperitoneal fat and peritoneum were dissected open bluntly at the superior aspect of the rectus muscles. The peritoneal incision was extended superior and inferior with good position of bladder. The uterine incision was made with a scalpel down to the level of the amniotic cavity. The amniotic cavity was entered bluntly. The infant was delivered. The cord was clamped and cut and the was handed off to waiting pediatric staff. Cord bloods were obtained. The placenta was removed manually. The uterus was exteriorized. The uterus was cleared of all clots, debris and membranes. The uterus was closed in 0 Vicryl running lock fashion. An imbricating over a was placed along the incision line as well. The uterus was returned to the abdomen. The gutters were cleared of all clots and debris. The fascia was closed with 0 Vicryl running fashion. The subcutaneous tissue was irrigated pinpoint bleeders were cauterized. The skin was closed with subcuticular absorbable umesh. The skin incision line was covered with glue. The patient tolerated the procedure well. She has taken recovery room in stable condition. Sponge lap and needle counts were correct x2. Estimated Blood Loss 350 Drains No Packing No Pathology None sent Complications No immediate complications Condition Stable Disposition PACU
[2022-02-07] MEDS: OXYTOCIN 30 UNITS/NS 500 ML 30 UNITS/500 ML BAG 125 UNITS IV CONT (13:43)
--- NOTE | 2022-02-07 16:05 | OBPPTRN ---
Patient transferred to post room # 290 via stretcher. Baby and Support person present. Oriented to unit, room, information board, rooming in, admission packet and security measures. Patient verbalizes understanding.
[2022-02-07] MEDS: DEXTROSE 5%/0.45% SOD CHL 1,000 ML 125 ML IV CONT (18:09)
[2022-02-07] MEDS: KETOROLAC 30 MG/ML VIAL (*BKC) IV PUSH (19:20)
[2022-02-07] MEDS: ONDANSETRON INJ 4 MG/2 ML VIAL IV PUSH (19:21)
[2022-02-07] MEDS: KCL 20 MEQ/D5/0.45% SOD CHL 1,000 ML 125 ML IV CONT (22:45)
[2022-02-08] MEDS: ONDANSETRON INJ 4 MG/2 ML VIAL IV PUSH (01:19)
[2022-02-08] MEDS: KETOROLAC 30 MG/ML VIAL (*BKC) IV PUSH ×2 (01:20→07:06)
[2022-02-08 03:45] VITALS: BP 104/55; PULSE 68; RESP 16; TEMP 36.6; O2SAT 98
[2022-02-08 05:02] LABS: Basophils Percent Auto 0.3 % (0.2-1.2); Eosinophils Percent Auto 0.4 % (0-4.4); Hematocrit 31.5 % (37.0-47.0); Hemoglobin 10.8 g/dL (12.0-15.0); Immature Granulocyte Absolute 0.08 K/mm3 (0.00-0.031); Immature Granulocyte Percent A 0.8 % (0-0.5); Lymphocytes Absolute Auto 1.46 K/mm3 (0.9-3.2); Lymphocytes Percent Auto 13.8 % (18.3-44.2); Mean Corpuscular HGB Conc 34.3 g/dl (32-36); Mean Corpuscular Volume 96.3 fl (80-100); Mean Platelet Volume 10.3 fl (7.4-10.4); Monocytes Absolute Auto 0.3 K/mm3 (0.1-0.6); Neutrophils Absolute Auto 8.7 K/mm3 (1.3-6.7); Neutrophils Percent Auto 81.7 % (45.5-73.1); Platelet Count Result 148 k/mm3 (150-375); Red Blood Count 3.27 M/mm3 (4.2-5.4); Red Cell Distribution Width 13.2 % (11.5-14.5); White Blood Count 10.6 K/mm3 (4.5-10.0)
[2022-02-08] MEDS: SIMETHICONE 80 MG TAB.CHEW PO ×2 (07:05→15:44)
[2022-02-08] MEDS: MULTIVIT/MIN/PREN/FOL AC/IRON TABLET 1 TAB PO (07:05)
[2022-02-08] MEDS: DOCUSATE SODIUM 100 MG CAPSULE PO ×2 (07:05→15:43)
[2022-02-08 07:26] VITALS: BP 98/50; PULSE 82; RESP 18; TEMP 36.6; O2SAT 98
--- NOTE | 2022-02-08 07:34 | PM.OBPNVD ---
OB - PN: Subj Subjective Date/time seen: 02/08/22 07:34 Patient comments: no complaints, pain well controlled, tolerating diet and flatus present OB - PN: Obj Data Labs CBC & Chem 7: 02/08/22 03:57 Labs: Laboratory Results - last 24 hr 02/08/22 02/08/22 03:57 03:57 WBC 10.6 H RBC 3.27 L Hgb 10.8 L Hct 31.5 L MCV 96.3 MCH 33.0 MCHC 34.3 RDW 13.2 Plt Count 148 L MPV 10.3 Immature Gran % (Auto) 0.8 H Neut % (Auto) 81.7 H Lymph % (Auto) 13.8 L [place] % (Auto) 3.0 Eos % (Auto) 0.4 Baso % (Auto) 0.3 Lymph # (Auto) 1.46 [place] # (Auto) 0.3 Eos # (Auto) 0.0 Baso # (Auto) 0.0 Abs Immat Gran (auto) 0.08 H Absolute Neuts (auto) 8.7 H Absolute Nucleated RBC 0.0 Nucleated RBC % 0.0 Blood Type A Negative Antibody Screen Positive Antibody Identification Passive Due to RH Imm Glob Antigen Identification TNP VAMSHI, IgG Interpret Not Performed VAMSHI, Poly Interpret Neg VAMSHI, Complement Interp Not Performed Screen Negative Baby's Blood Type Ab pos Baby's VAMSHI Positive Doses of RhIg Required 1 OB - PN A/P Plan day: 1 Comments: Post Op LTCS - no problems, routine recovery Time Spent With Patient Time: Total time spent is greater than 50% in coordination of care (as documented) at patient's floor/unit and/or counseling patient: Exam Const: General: cooperative, healthy appearing, comfortable and no acute distress Resp: Auscultation: no crackles, no rales, no rhonchi and no wheezes Cardio: Rhythm: regular rhythm Heart sounds: no click and no murmurs GI: Inspection: non-distended Auscultation: normal bowel sounds Extrem: General: normal to inspection, no pedal edema and no calf tenderness
--- NOTE | 2022-02-08 09:18 | WPDANLDPN2 ---
Anes-Prog Note L&D Date/Time: 02/08/22 09:18 Comfortable throughout: section Neuraxial method: spinal Epidural/Spinal procedure site: clean & non-tender Neuro status: Neuro function grossly intact. Cardiovascular status: normal Respiratory status: normal Airway patency: baseline Mental status: baseline Post-Op hydration status: normal Vital Signs: Last Vital Signs Temp 98 F 02/08/22 07:26 Pulse 82 02/08/22 07:26 Resp 18 02/08/22 07:26 BP 98/50 L 02/08/22 07:26 Pulse Ox 98 02/08/22 07:26 Pain score (VAS): 0 I/O: Intake & Output 02/07/22 02/08/22 02/08/22 23:59 07:59 15:59 Intake Total 1340 540 Output Total 522 700 Balance 818 -160 Post-procedural complaints: pruritis moderate, treatment effective (moderate, pt states not medicated) Patient feedback: Patient satisfied with anesthetic care.
--- NOTE | 2022-02-08 09:19 | WPDANLDNPN2 ---
Anes-Prog Note L&D-Neuraxial Date/Time: 02/08/22 09:19 Neuraxial medications: intrathecal PF morphine Opiod-related complaints: pruritis moderate, treatment effective Patient feedback: Patient satisfied with post-operative pain management.
[2022-02-08 12:00] VITALS: BP 111/55; PULSE 77; RESP 18; TEMP 36.6
[2022-02-08] MEDS: RHO(D) IMMUNE GLOBULIN 300 MCG/2 ML SYRINGE IM (15:07)
[2022-02-08] MEDS: diphenhydrAMINE HCl CAP 25 MG CAPSULE 50 MG PO (15:44)
[2022-02-08] MEDS: IBUPROFEN 600 MG TABLET PO (15:44)
[2022-02-08 19:54] VITALS: BP 136/67; PULSE 82; RESP 18; TEMP 36.6; O2SAT 100
[2022-02-09] MEDS: SIMETHICONE 80 MG TAB.CHEW PO ×2 (05:41→08:02)
[2022-02-09] MEDS: IBUPROFEN 600 MG TABLET PO ×2 (05:41→11:10)
--- NOTE | 2022-02-09 07:18 | PM.OBPNVD ---
OB - PN: Subj Subjective Date/time seen: 02/09/22 07:18 Patient comments: no complaints and pain well controlled OB - PN: Obj Data Labs CBC & Chem 7: 02/08/22 03:57 Labs: Laboratory Results - last 24 hr 02/08/22 03:57 Blood Type A Negative Antibody Screen Positive Antibody Identification Passive Due to RH Imm Glob Antigen Identification TNP VAMSHI, Poly Interpret Neg Screen Negative Baby's Blood Type Ab pos Baby's VAMSHI Positive Doses of RhIg Required 1 OB - PN A/P Plan day: 2 Plan: routine care and discharge home Time Spent With Patient Time: Total time spent is greater than 50% in coordination of care (as documented) at patient's floor/unit and/or counseling patient: Review of Systems Review of Systems: All systems reviewed & are unremarkable except as noted in HPI and below Exam Const: General: cooperative, healthy appearing and comfortable
--- NOTE | 2022-02-09 07:19 | PM.OBDSVD ---
DS: Admitting Diagnosis Discharge Date 02/09/22 Admitting Diagnosis section OB - DS: Summary OB Procedures : None OB Procedures Intrapartum: OB Procedures: : None Peripartum Data Procedures: Procedures Operation Date: 02/07/22 12:00 Actual Procedure Side Surgeon p Repeat Section Senait Begum MD Time Spent with Patient Time attestation: Total time spent providing and/or coordinating discharge services: DS: Data Data Completed and Pending Labs on day of discharge: Labs from last 24 hours 02/08/22 03:57 Blood Type A Negative Antibody Screen Positive Antibody Identification Passive Due to RH Imm Glob Antigen Identification TNP VAMSHI, Poly Interpret Neg Screen Negative Baby's Blood Type Ab pos Baby's VAMSHI Positive Doses of RhIg Required 1 Discharge Plan Discharge Attending physician on discharge: Senait Begum Discharging Clinician: Sweta Lange Patient Disposition: Home, Self-Care Activity: pelvic rest Diet: regular Patient Instructions: Antibiotic Form Stand Alone Forms: General Discharge Information Follow-up/Referrals: Senait Begum MD [Physician] - 1 Week Discharge Medications: Continued PNV cmb#95-ferrous fumarate-FA [] 28 mg iron- 800 mcg Tablet 1 tablet PO DAILY RF: 0 Date of admission: 02/07/22 09:57 Primary Care Provider: Eriberto,Caleb Cabrera Admitting Provider: Senait Begum Attending physician on admission: Senait Begum Condition: Stable
[2022-02-09 08:00] VITALS: BP 108/69; PULSE 71; RESP 18; TEMP 37.2
[2022-02-09] MEDS: DOCUSATE SODIUM 100 MG CAPSULE PO (08:02)
[2022-02-09] MEDS: MULTIVIT/MIN/PREN/FOL AC/IRON TABLET 1 TAB PO (08:02)
--- NOTE | 2022-02-09 10:50 | PC.NURSE ---
Self care and infant care discharge instructions given including follow up visit date and time. Mother verbalized understanding. No questions or concerns voiced. Very pleasant and cooperative. FOB at side.
--- NOTE | 2022-02-09 13:35 | PC.NURSE ---
0715 - Reported to RN that mother is independently. 1015 - Mother is in the shower. Introduction were made to father of baby and I could return to assess latch before leaving and to call. Father voiced understanding and said they would be feeding infant and leaving soon. 1151 - Checked back with patient and she had been discharged home.
[2022-02-10 11:20] VITALS: BP 119/66; PULSE 81; RESP 20; TEMP 36.8; O2SAT 100
== END 2022-02-09 11:30 | disposition home or self-care (01) | DRG 788 ==
LOC: ANHLDR 10:07 → ANHOB2 16:05
PROVIDERS: Admitting Provider Obstetrics & Gynecology; PCP Internal Medicine; Visit Provider Obstetrics & Gynecology
PROC: 10D00Z1 Extraction of Products of Conception, Low, Open Approach (ICD-10-PCS; CPT 59514; principal; 2022-02-07 12:00)
DX: O34.211 Maternal care for low transverse scar from previous cesarean delivery (principal); Z37.0 Single live birth; Z3A.39 39 weeks gestation of pregnancy; O99.824 Streptococcus B carrier state complicating childbirth
CPT/HCPCS: 36415; 85025; 85027; 85461; 86592; 86850; 86880; 86900; 86901; 86902; 90384; A9270; J1885; J2274; J2405; J2590; J2790; J3480; J7120

== ENCOUNTER 2022-06-25 13:18 | Emergency (ER) | payer OTHER, SELFPAY ==
[2022-06-25 13:50] VITALS: BP 157/78; PULSE 78; RESP 18; TEMP 36.5; O2SAT 100
--- NOTE | 2022-06-25 14:18 | ED.GENADULT ---
HPI - General Adult General Chief complaint: Unspecified Stated complaint: bumps in back of throat Source: patient Mode of arrival: ambulatory Limitations: no limitations History of Present Illness HPI narrative: Patient presents for evaluation of right-sided cervical lymphadenopathy. Symptom onset today. She reports just a dull aching sensation in that area. She looked in her posterior pharynx and saw some bumps , which concerned her so she came in for further evaluation. No fever, chills, nausea, vomiting, respiratory symptoms. She ate some popcorn last night but is unaware of any other new foods. No additional complaints or concerns. Related Data Home Medications Medication Instructions Recorded Confirmed vit no.95-ferrous 1 tablet PO DAILY 12/17/19 06/25/22 fumarate 28 mg-folic acid 800 mcg tablet () biotin 1 mg capsule 1 mg PO DAILY 04/26/22 06/25/22 Allergies Allergy/AdvReac Type Severity Reaction Status Date / Time No Known Allergies Allergy Verified 06/25/22 13:47 Review of Systems Review of Systems: CONSTITUTIONAL: Denies fever, chills, or sweats. EYES: Denies visual changes, redness, or discharge. ENT: Reports right sided cervical lymphadenopathy with some bumps in her posterior pharynx. Denies rhinorrhea, congestion, or otalgia. CARDIOVASCULAR: Denies chest pain, palpitations, or edema. RESPIRATORY: Denies cough or dyspnea. GASTROINTESTINAL: Denies abdominal pain, nausea, vomiting, or diarrhea. GENITOURINARY: Denies dysuria or hematuria. SKIN: Denies rash or itching. MUSCULOSKELETAL: Denies back pain, joint pain, or myalgia. NEUROLOGIC: Denies headache, numbness, dizziness, or weakness. PSYCHIATRIC: Denies anxiety or depression. [facility] Past Medical History Medical History No pertinent past medical history Surgical History Surgical History Hx of section 2019, 2021 Family History Family History Grandparent Diabetes mellitus Mother Rheumatoid arthritis Other Kidney disease Social History Social History Smoking status: Never smoker Alcohol intake: current Substance use: never Living arrangements: with family Gender identity (if verbalized by the patient): Female Sexual Orientation (if Verbalized by the Patient): Straight or Heterosexual Spiritual care concerns: No Exam Narrative: GENERAL: Well-appearing, well-nourished, and in no acute distress. HEAD: Normocephalic, atraumatic. EYES: PERRLA and EOMI. ENT: Nares clear, no rhinorrhea or epistaxis. Mucous membranes moist. Posterior pharynx is mildly edematous with (2)2mm raised annular raised lesions. Bilateral TMs pearly coley nonbulging NECK: Supple. No adenopathy or masses. No carotid bruits or JVD CHEST: Clear to auscultation. No respiratory distress. No wheezes rales or rhonchi HEART: Regular rate and rhythm. No murmur heard. Normal peripheral pulses. ABDOMEN: Soft, nontender, nondistended, normal active bowel sounds. EXTREMITIES: Normal range of motion. No edema. SKIN: Warm, dry, no rash. NEURO: No focal deficits. Alert and oriented x3. PSYCH: Normal mood and affect. Course Course Emergency Course: This is a 31-year-old female who presented for evaluation of right-sided cervical lymphadenopathy with abnormal appearance of the mucosa of her posterior pharynx. On exam. She does have some mild mucosal irritation. This could be allergic in nature versus food related versus viral in origin. We did swab her for strep which was negative. Advised on warm salt gargles which may help. Will avoid other therapies as she is breast feeding. Advised she follow up with her PCP and return for worsening symptoms. Pt in agreement with plan of care. Chriss
== END 2022-06-25 14:47 | disposition home or self-care (01) ==
PROVIDERS: Emergency Provider Nurse Practitioner; PCP Internal Medicine
DX: R59.9 Enlarged lymph nodes, unspecified (principal)
CPT/HCPCS: 87081; 87880; 99213; G0463

== ENCOUNTER 2022-06-26 10:18 | Emergency (ER) | payer OTHER, SELFPAY ==
[2022-06-26 10:27] VITALS: BP 147/81; PULSE 74; RESP 18; TEMP 36.9; O2SAT 100
--- NOTE | 2022-06-26 10:32 | ED.URI ---
HPI - URI/Sore Throat General Chief Complaint: Skin/Abscess/Foreign Body Stated Complaint: Lump in Throat Time Seen by Provider: 06/26/22 10:23 History of Present Illness HPI Narrative: 31-year-old female presents to the emergency department for evaluation of small red bumps on the back of her throat and swollen right lymph node to her neck. Patient was seen at urgent care yesterday and was told that this was probably due to a viral infection. Patient denies sinus congestion, postnasal drip, cough, fever or any other respiratory symptoms. Patient states that she looked on [employer] and was told that she probably has cancer. Related Data Home Medications Medication Instructions Recorded Confirmed vit no.95-ferrous 1 tablet PO DAILY 12/17/19 06/25/22 fumarate 28 mg-folic acid 800 mcg tablet () biotin 1 mg capsule 1 mg PO DAILY 04/26/22 06/25/22 Allergies Allergy/AdvReac Type Severity Reaction Status Date / Time No Known Allergies Allergy Verified 06/25/22 13:47 Review of Systems Review of Systems: CONSTITUTIONAL: Denies fever, chills, or sweats. EYES: Denies visual changes, redness, or discharge. ENT: Reports sore throat CARDIOVASCULAR: Denies chest pain, palpitations, or edema. RESPIRATORY: Denies cough or dyspnea. GASTROINTESTINAL: Denies abdominal pain, nausea, vomiting, or diarrhea. GENITOURINARY: Denies dysuria or hematuria. SKIN: Denies rash or itching. MUSCULOSKELETAL: Denies back pain, joint pain, or myalgia. NEUROLOGIC: Denies headache, numbness, dizziness, or weakness. PSYCHIATRIC: Denies anxiety or depression. [facility] Past Medical History Medical History No pertinent past medical history Surgical History Surgical History Hx of section 2021 Family History Family History Grandparent Diabetes mellitus Mother Rheumatoid arthritis Other Kidney disease Social History Social History Smoking status: Never smoker Alcohol intake: current Substance use: never Gender identity (if verbalized by the patient): Female Sexual Orientation (if Verbalized by the Patient): Straight or Heterosexual Spiritual care concerns: No Exam Narrative: GENERAL: Well-appearing, well-nourished, no physical limitations, and in no acute distress. HEAD: Normocephalic, atraumatic. EYES: Conjunctivae normal, PERRLA and EOMI. ENT: Mildly erythematous cobblestone appearance of the oropharynx, with no tonsillar hypertrophy or exudate. NECK: Supple. Singular mobile tender cervical lymph node CHEST: Clear to auscultation. No respiratory distress. No wheezes rales or rhonchi. HEART: Regular rate and rhythm. No murmur heard. Normal peripheral pulses. EXTREMITIES: Normal range of motion. No edema. No clubbing or cyanosis SKIN: Warm, dry, no rash. No noted wounds NEURO: No focal deficits. Alert and oriented x3. MAEW. CN's II-XI intact bilaterally, normal gait PSYCH: Cooperative. Normal mood and affect. Course Vital Signs Vital signs: Vital Signs Temperature 36.9 C 06/26/22 10:27 Pulse Rate 74 06/26/22 10:27 Respiratory Rate 18 06/26/22 10:27 Blood Pressure 147/81 H 06/26/22 10:27 Pulse Oximetry 100 06/26/22 10:27 Oxygen Delivery Room Air 06/26/22 10:27 Temperature 36.9 C 06/26/22 10:27 Pulse Rate 74 06/26/22 10:27 Respiratory Rate 18 06/26/22 10:27 Blood Pressure 147/81 H 06/26/22 10:27 Pulse Oximetry 100 06/26/22 10:27 Oxygen Delivery Room Air 06/26/22 10:27 Discharge Plan Discharge Clinical Impression: Anterior cervical adenopathy Patient Disposition: Home, Self-Care Condition: Stable Instructions: Antibiotic Form, Lymphadenopathy (ED), Viral Syndrome (ED) Additional Instructions: The cobble
== END 2022-06-26 11:00 | disposition home or self-care (01) ==
PROVIDERS: Emergency Provider Nurse Practitioner Family; PCP Internal Medicine
DX: R59.0 Localized enlarged lymph nodes (principal)
CPT/HCPCS: 99282

== ENCOUNTER 2022-07-25 09:37 | Outpatient (CLI) | payer OTHER, SELFPAY ==
--- NOTE | ~2022-07-25 | US_ITS ---
EXAMINATION: US soft tissue head and neck DATE: 07/25/2022 10:15 INDICATION: SUBMANDIBULAR LYMPHADENOPATHY . TECHNIQUE: Grayscale and Doppler ultrasound images of the neck soft tissues were obtained. COMPARISON: None. FINDINGS: The thyroid gland is grossly normal in size with normal vascularity and no nodules. Promine nt right level 2 lymph node measuring 2.4 x 0.7 x 1.1 cm. Prominent left level 2 lymph node measuring 2.2 x 0.7 x 1.1 cm. Small, normal-appearing lymph nodes seen bilaterally at level 5 and multiple lev els on the left. No other solid mass or cystic mass detected. IMPRESSION: Bilateral level 2 cervical lymphadenopathy. Reviewed, dictated and finalized at location K.
== END 2022-07-25 09:38 | disposition home or self-care (01) ==
PROVIDERS: PCP Internal Medicine; Visit Provider Otolaryngology
DX: R59.0 Localized enlarged lymph nodes (principal)
CPT/HCPCS: 76536

== ENCOUNTER 2022-07-28 17:28 | Outpatient (CLI) | payer OTHER, SELFPAY ==
[2022-07-28 17:50] LABS: Hematocrit 42.5 % (37.0-47.0); Hemoglobin 14.9 g/dL (12.0-15.0); Mean Corpuscular HGB Conc 35.1 g/dl (32-36); Mean Corpuscular Hemoglobin 32.5 pg (26-34); Mean Corpuscular Volume 92.8 fl (80-100); Platelet Count Result 237 k/mm3 (150-375); Red Blood Count 4.58 M/mm3 (4.2-5.4); Red Cell Distribution Width 11.8 % (11.5-14.5); White Blood Count 8.5 K/mm3 (4.5-10.0)
[2022-07-28 18:00] LABS: Alanine Aminotransferase 26 U/L (6-35); Albumin Level 5.1 g/dL (3.5-5.1); Alkaline Phosphatase 67 U/L (38-126); Anion Gap 15 mmol/L (8-16); Aspartate Amino Transferase 31 U/L (14-36); Bilirubin,Total 0.5 mg/dL (0.2-1.3); Blood Urea Nitrogen 11 mg/dL (7-17); Calcium 9.2 mg/dL (8.4-10.2); Carbon Dioxide 26 mmol/L (22-30); Chloride 102 mmol/L (98-107); Estimated Glomerular Filt Rate > 60; Glucose 87 mg/dL (65-110); Potassium 3.7 mmol/L (3.4-5.0); Sodium 143 mmol/L (137-145)
[2022-07-28 18:36] LABS: Free T4 Free Thyroxine 1.06 ng/mL (0.78-2.19)
[2022-07-31 03:51] LABS: Thyroid Peroxidase Antibodies 1 IU/mL (<9)
[2022-07-31 14:22] LABS: Triiodothyronine T3 Free 3.7 pg/mL (2.3-4.2)
== END 2022-07-28 17:29 | disposition home or self-care (01) ==
LOC: ANHLAB 17:32
PROVIDERS: PCP Internal Medicine; Visit Provider Otolaryngology
DX: R59.0 Localized enlarged lymph nodes (principal)
CPT/HCPCS: 36415; 80053; 84439; 84443; 84481; 85027; 86038; 86376

== ENCOUNTER 2022-08-05 12:39 | Outpatient (CLI) | payer OTHER, SELFPAY ==
--- NOTE | ~2022-08-05 | US_ITS ---
EXAMINATION: US biopsy lymph node DATE: 08/05/2022 14:05 INDICATION: Localized enlarged lymph nodes TECHNIQUE: The procedure including the risks and benefits was discussed with the patient. Risks discu ssed included bleeding and infection. The patient understood the risks and agreed to proceed. The sk in overlying the right neck was prepped and draped in usual sterile fashion. Anesthetic was administ ered with 1% lidocaine subcutaneously. An 18 gauge core biopsy needle was advanced under continuous ultrasound observation to one of the prominent right jugular chain lymph nodes of concern. 5 core bi opsy specimens were obtained. The needle was removed and the entry site was cleaned and dressed. Po st procedure ultrasound demonstrated no hemorrhage. FINDINGS: Ultrasound images demonstrate the biopsy needle advanced into the largest 2.8 x 1.1 x 0.6 c m right jugular chain lymph node. IMPRESSION: 1. Successful Ultrasound-guided biopsy of a 2.8 x 1.1 x 0.6 cm right jugular chain lymph node. Reviewed, dictated and finalized at location A. [employer] IMPRESSION: 1. Successful Ultrasound-guided biopsy of a 2.8 x 1.1 x 0.6 cm right jugular ch ain lymph node.
== END 2022-08-05 12:40 | disposition home or self-care (01) ==
PROVIDERS: PCP Internal Medicine; Visit Provider Otolaryngology
DX: R59.0 Localized enlarged lymph nodes (principal)
CPT/HCPCS: 38505; 76942; 88305; 88342

== ENCOUNTER 2022-08-22 16:35 | Outpatient (CLI) | payer OTHER, SELFPAY ==
--- NOTE | ~2022-08-22 | MR_ITS ---
EXAMINATION: MR cervical spine wo con DATE: 08/22/2022 17:40 INDICATION: Tingling in the back of the neck and head. Tingling in the hands and feet. Submandibular lymphadenopathy. TECHNIQUE: Magnetic resonance imaging (MRI) of the cervical spine was performed without intravenous c ontrast. Sequences included sagittal T2-weighted FSE, sagittal T2-weighted FS FSE, sagittal T1-weight ed FSE, axial MERGE, and axial T2-weighted FSE. COMPARISON: None FINDINGS: There is 5 degrees dextrocurvature of cervicothoracic spine. Vertebral body heights are nor mal. Intervertebral disc heights are normal. The spinal cord signal intensity is normal. The followin g disc levels are specifically discussed: C2-C3: The disc does not extend beyond the endplate margin. There is no uncovertebral joint osteoarth ritis. There is no facet joint osteoarthritis. There is no neural foraminal stenosis. There is no yesy tral canal stenosis. C3-C4: The disc does not extend beyond the endplate margin. There is no uncovertebral joint osteoarth ritis. There is mild bilateral facet joint osteoarthritis. There is no neural foraminal stenosis. The re is no central canal stenosis. C4-C5: The disc does not extend beyond the endplate margin. There is no uncovertebral joint osteoarth ritis. There is no facet joint osteoarthritis. There is no neural foraminal stenosis. There is no yesy tral canal stenosis. C5-C6: There is a central protrusion. There is no uncovertebral joint osteoarthritis. There is mild b ilateral facet joint osteoarthritis. There is no neural foraminal stenosis. There is no central canal stenosis. C6-C7: The disc does not extend beyond the endplate margin. There is no uncovertebral joint osteoarth ritis. There is mild bilateral facet joint osteoarthritis. There is no neural foraminal stenosis. The re is no central canal stenosis. C7-T1: The disc does not extend beyond the endplate margin. There is no uncovertebral joint osteoarth ritis. There is moderate bilateral facet joint osteoarthritis. There is mild bilateral neural foramin al stenosis. There is no central canal stenosis. IMPRESSION: 1. Mild cervical spondylosis. Reviewed, dictated and finalized at location A. [employer]
== END 2022-08-22 16:36 | disposition home or self-care (01) ==
PROVIDERS: PCP Internal Medicine; Visit Provider Otolaryngology
DX: R59.0 Localized enlarged lymph nodes (principal); K21.9 Gastro-esophageal reflux disease without esophagitis; M47.892 Other spondylosis, cervical region
CPT/HCPCS: 72141

== ENCOUNTER 2022-09-01 12:11 | Outpatient (CLI) | payer OTHER, SELFPAY ==
--- NOTE | ~2022-09-01 | MR_ITS ---
EXAMINATION: MR brain/brain stem wo/w con DATE: 09/01/2022 13:13 INDICATION: Numbness and tingling TECHNIQUE: Magnetic resonance imaging (MRI) of the brain and brainstem was performed without and with 12 mL Multihance intravenous contrast. Sequences included sagittal and axial T1-weighted FLAIR, axia l T1-weighted FSE, axial diffusion-weighted FS EPI, sagittal T2-weighted FLAIR, axial 3D SWAN, axial T2-weighted FLAIR Propeller, and axial T2-weighted Propeller. Postcontrast sequences included axial, coronal, and sagittal T1-weighted FSE. Apparent diffusion coefficient (ADC) maps were created. COMPARISON: None. FINDINGS: There are no areas of restricted diffusion to suggest acute infarction. No intracranial hemorrhage or abnormal intracranial mass lesion. No evident foci of increased T2-weighted signal intensity in the cerebral white matter to raise suspicion for multiple sclerosis. There are no intraparenchymal signal abnormalities seen on the other pulse sequences. The ventricles are symmetric and normal in size. Th ere are no abnormal extra-axial fluid collections. Flow voids are seen in the cerebral arteries on th e T2-weighted sequences consistent with their expected patency. Visualized orbits and soft tissues ar e unremarkable. There are no areas of abnormal enhancement on the post contrast images. IMPRESSION: 1. Normal brain MR. Reviewed, dictated and finalized at location A. APPLICATION DEVELOPER IMPRESSION: 1. Normal brain MR.
== END 2022-09-01 12:12 | disposition home or self-care (01) ==
PROVIDERS: PCP Internal Medicine
DX: R20.0 Anesthesia of skin (principal); R20.2 Paresthesia of skin
CPT/HCPCS: 70553; A9577

== ENCOUNTER 2022-09-23 15:35 | Outpatient (CLI) | payer OTHER, SELFPAY ==
--- NOTE | ~2022-09-23 | CT_ITS ---
EXAMINATION: CT soft tissue neck w con DATE: 09/23/2022 16:09 INDICATION: Submandibular lymphadenopathy. TECHNIQUE: Computed tomography (CT) of the neck was performed with 75 mL Omnipaque-350 intravenous co ntrast. Automated exposure control and iterative reconstruction technique were employed. The dose-alfonso gth product was 420.06 mGy-cm. COMPARISON: Ultrasound 08/05/2022, 07/25/2022 FINDINGS: There are no pathologically enlarged lymph nodes. The major salivary glands are normal. The cervical carotid arteries and vertebral arteries are normal. The paranasal sinuses are clear. The ma stoid air cells are normal. At C7-T1, there is mild bilateral facet joint osteoarthritis. IMPRESSION: 1. No lymphadenopathy. Reviewed, dictated and finalized at location A. LLARY SERVICES MANAGER IMPRESSION: 1. No lymphadenopathy.
== END 2022-09-23 15:36 | disposition home or self-care (01) ==
PROVIDERS: PCP Internal Medicine; Visit Provider Otolaryngology
DX: R59.0 Localized enlarged lymph nodes (principal)
CPT/HCPCS: 70491; Q9967

== ENCOUNTER → 2022-10-12 15:04 | Outpatient (CLI) | payer OTHER, SELFPAY ==
--- NOTE | ~2022-10-12 | US_ITS ---
EXAMINATION: US right upper quadrant DATE: 10/12/2022 15:24 INDICATION: Right upper quadrant abdominal pain. TECHNIQUE: Multiple grayscale and Doppler ultrasound images of the abdomen were obtained. COMPARISON: CT abdomen and pelvis 12/10/2020 FINDINGS: The visualized portions of the head, body, and tail of the pancreas are normal. The liver i s normal without focal lesion. No liver surface nodularity. There is normal flow in main portal vein. The gallbladder is normal in size. No gallstones or gallbladder wall thickening. There is no sonogra phic Navas sign. The common duct is normal and measures 3 mm . IMPRESSION: 1. Normal right upper quadrant ultrasound. Reviewed, dictated and finalized at location A. OPERATOR
== END ==
PROVIDERS: PCP Internal Medicine; Visit Provider Internal Medicine
DX: R10.11 Right upper quadrant pain (principal)
CPT/HCPCS: 76705

== ENCOUNTER 2022-10-18 15:10 | Outpatient (CLI) | payer OTHER, SELFPAY ==
--- NOTE | ~2022-10-18 | CT_ITS ---
CT Abdomen and Pelvis with contrast. History: Abdominal pain. Spiral CT of the abdomen and pelvis was performed after the administration of intravenous contrast. 1 00 cc of Omnipaque 350 was administered intravenously without complication. Dose reduction technique was used on this scan by utilizing automated exposure control and iterative reconstruction technique. The dose-length product (DLP) was 198.93 mGy-cm. COMPARISON: 12/10/2020 Findings: Scans through the lung bases demonstrate mild atelectatic change. The liver, spleen, pancreas, gallbladder, adrenals and kidneys are within normal limits. No evidence of aortic aneurysm. No lymphadenopathy is seen. There is no evidence of bowel obstruction. There is no evidence to suggest acute appendicitis or dive rticulitis. Images through the pelvis were performed. Urinary bladder unremarkable. No adnexal/pelvic mass identi fied. No ascites is seen. Impression: No significant abnormalities seen. Reviewed, dictated and finalized at [facility]. ECTOR AND HAND PACKAGER Impression: No significant abnormalities seen.
== END 2022-10-18 15:11 | disposition home or self-care (01) ==
PROVIDERS: PCP Internal Medicine; Visit Provider Internal Medicine
DX: R10.9 Unspecified abdominal pain (principal)
CPT/HCPCS: 74177; Q9967

== ENCOUNTER 2024-01-12 14:04 | Outpatient (CLI) | payer OTHER, SELFPAY ==
[2024-01-12 14:38] LABS: Basophils Percent Auto 0.4 % (0.2-1.2); Eosinophils Percent Auto 0.3 % (0-4.4); Hematocrit 42.8 % (37.0-47.0); Hemoglobin 14.7 g/dL (12.0-15.0); Immature Granulocyte Absolute 0.03 K/mm3 (0.00-0.031); Immature Granulocyte Percent A 0.3 % (0-0.5); Lymphocytes Absolute Auto 2.21 K/mm3 (0.9-3.2); Lymphocytes Percent Auto 22.2 % (18.3-44.2); Mean Corpuscular HGB Conc 34.3 g/dl (32-36); Mean Corpuscular Hemoglobin 31.7 pg (26-34); Mean Corpuscular Volume 92.4 fl (80-100); Mean Platelet Volume 9.9 fl (7.4-10.4); Monocytes Absolute Auto 0.5 K/mm3 (0.1-0.6); Monocytes Percent Auto 4.6 % (2.6-8.5); Neutrophils Absolute Auto 7.2 K/mm3 (1.3-6.7); Neutrophils Percent Auto 72.2 % (45.5-73.1); Platelet Count Result 261 k/mm3 (150-375); Red Blood Count 4.63 M/mm3 (4.2-5.4); Red Cell Distribution Width 12.1 % (11.5-14.5)
[2024-01-12 14:50] LABS: Alanine Aminotransferase 28 U/L (6-35); Albumin Level 4.8 g/dL (3.5-5.1); Alkaline Phosphatase 41 U/L (38-126); Anion Gap 5 mmol/L (4-12); Aspartate Amino Transferase 27 U/L (14-36); Bilirubin,Total 0.7 mg/dL (0.2-1.3); Blood Urea Nitrogen 9 mg/dL (7-17); Calcium 9.6 mg/dL (8.4-10.2); Carbon Dioxide 29 mmol/L (22-30); Chloride 104 mmol/L (98-107); Cholesterol 151 mg/dL (0-200); Estimated Glomerular Filt Rate > 60; Glucose 93 mg/dL (65-110); HDL Direct 51 mg/dL; Potassium 3.9 mmol/L (3.4-5.0); Sodium 138 mmol/L (137-145); Triglycerides 69 mg/dL (<150)
[2024-01-12 15:01] LABS: LDL Cholesterol Direct 92 mg/dL
[2024-01-12 15:14] LABS: Free T4 Free Thyroxine 0.93 ng/mL (0.78-2.19); Vitamin D 25 Hydroxy 52.5 ng/mL
[2024-01-12 15:20] LABS: Thyroid Stimulating Hormone 0.076 uIU/mL (0.465-4.680)
[2024-01-12 16:56] LABS: Folic Acid 14.2 ng/mL (2.76->20)
[2024-01-15 15:39] LABS: Triiodothyronine T3 Free 3.5 pg/mL (2.3-4.2)
== END 2024-01-12 14:05 | disposition home or self-care (01) ==
PROVIDERS: PCP Internal Medicine; Visit Provider Nurse Practitioner Adult Health
DX: E78.5 Hyperlipidemia, unspecified (principal); N92.0 Excessive and frequent menstruation with regular cycle; E03.9 Hypothyroidism, unspecified; R53.81 Other malaise
CPT/HCPCS: 36415; 80053; 80061; 82306; 82607; 82746; 84439; 84443; 84481; 85025

== ENCOUNTER 2024-02-05 10:44 | Outpatient (CLI) | payer OTHER, SELFPAY ==
[2024-02-05 11:50] LABS: Hematocrit 44.8 % (37.0-47.0); Hemoglobin 14.8 g/dL (12.0-15.0); Mean Corpuscular Hemoglobin 31.2 pg (26-34); Mean Corpuscular Volume 94.5 fl (80-100); Mean Platelet Volume 9.9 fl (7.4-10.4); Platelet Count Result 255 k/mm3 (150-375); Red Blood Count 4.74 M/mm3 (4.2-5.4); Red Cell Distribution Width 12.3 % (11.5-14.5); White Blood Count 9.3 K/mm3 (4.5-10.0)
[2024-02-05 12:41] LABS: Thyroid Stimulating Hormone 0.969 uIU/mL (0.465-4.680)
[2024-02-05 12:48] LABS: Free T4 Free Thyroxine 1.09 ng/mL (0.78-2.19)
== END 2024-02-05 10:45 | disposition home or self-care (01) ==
PROVIDERS: PCP Internal Medicine
DX: H93.A1 Pulsatile tinnitus, right ear (principal)
CPT/HCPCS: 36415; 84439; 84443; 85027

== ENCOUNTER 2024-02-15 07:45 | Outpatient (CLI) | payer OTHER, SELFPAY ==
--- NOTE | ~2024-02-15 | CT_ITS ---
EXAMINATION: CTA brain carotid DATE: 02/15/2024 08:23 INDICATION: Cochlear hydrops of right ear. TECHNIQUE: Computed tomographic angiography (CTA) of the head was performed without and with 100 mL O mnipaque-350 intravenous contrast. CTA of the neck was performed with intravenous contrast. Automated exposure control and iterative reconstruction technique were employed. The dose-length product was 1 417.00 mGy-cm. Maximum intensity projection and volume rendered 3D-reconstructions were created by tayler gill technologist on a separate workstation. COMPARISON: Neck CT 09/23/2022 FINDINGS: HEAD CTA: There is no intracranial hemorrhage, acute infarction, or abnormal intracranial mass lesion . The ventricles are normal in size. The orbits are normal. The paranasal sinuses are clear. The inne r ears and tympanic cavities are normal. The mastoid air cells are normal. The vertebral arteries are codominant. There is no significant stenosis of basilar artery or the posterior cerebral arteries. T here is no significant stenosis of the intracranial internal carotid arteries or anterior or middle c erebral arteries. Anterior communicating artery is normal. There is no aneurysm. NECK CTA: There are no pathologically enlarged lymph nodes. There is no significant stenosis of the v ertebral arteries. There is no visible plaque in the proximal internal carotid arteries. There is 0% stenosis of the proximal right internal carotid artery relative to normal distal artery lumen diamete r (NASCET criteria). There is 0% stenosis of the proximal left internal carotid artery relative to no rmal distal artery lumen diameter. There is mild cervical facet joint osteoarthritis. IMPRESSION: 1. Normal brain. No aneurysm or significant intracranial arterial stenosis. 2. 0% stenosis of the proximal internal carotid arteries relative to normal distal artery lumen diame ters (NASCET criteria). Reviewed, dictated and finalized at location A. IMPRESSION: 1. Normal brain. No aneurysm or significant intracranial arterial stenosis. 2. 0% stenosis of the proximal internal carotid arteries relative to normal dis radha artery lumen diameters (NASCET criteria).
== END 2024-02-15 07:46 | disposition home or self-care (01) ==
PROVIDERS: PCP Internal Medicine
DX: H81.01 Meniere's disease, right ear (principal)
CPT/HCPCS: 70496; 70498; Q9967

== ENCOUNTER 2024-03-21 13:40 | Outpatient (CLI) | payer OTHER, SELFPAY ==
--- NOTE | ~2024-03-21 | XR_ITS ---
EXAMINATION: XR barium swallow modified DATE: 03/21/2024 14:34 INDICATION: Dysphagia. TECHNIQUE: The patient was given barium-containing material of multiple consistencies to swallow by t he speech pathologist while I performed fluoroscopy. Fluoroscopy exposure time was 0.6 minutes. The n umber of fluoroscopy images saved to the PACS was 1. Dose-area product was 0.4 Gy-cm^2. FINDINGS: The oral stage, pharyngeal stage, and cervical/esophageal stage of the swallow are normal. IMPRESSION: 1. Normal modified barium swallow. 2. Please refer to the speech therapy report for recommendations. Reviewed, dictated and finalized at location A.
--- NOTE | 2024-03-21 14:43 | REHSTMBS ---
Assessment and note entered by Celina Durán, OUTBOUND SALES PROFESSIONAL Modified Barium Swallow Evaluation ST Clinical Summary MODIFIED BARIUM SWALLOW STUDY This patient was seen for a Modified Barium Swallow study at the request of her physician. Patient reports that two years ago she delivered a baby and bega exhibiting difficulty with swallowing. She reported that her throat feels weird when she swallows and that after swallowing, she feels she has residue in her throat, such as after eating sausage. Additionally, she reports that she burps after eating and can bring up small pieces of food or even just foam. She stated that she was diagnosed with acid reflux and was placed on Omeprazole approximately one month ago, which she reports has not improved her symptoms yet. Patient reports she has had imaging including ultrasound for her throat and all imaging has been negative for disorders. Patient was also diagnosed with diastasis recti, which is a gap or ridge in the abdomen after delivery of a baby. Patient was viewed in the lateral position to the level of C5/C6. Patient was presented with thin liquid contrast medium per cup and per straw, pudding mixed with semi-solid contrast medium, and then both fruit cocktail and jose cracker coated with the semi-solid mixture. Patient exhibited good mastication and manipulation of material and quick swallows with no vallecular or pharyngeal residue. There was no penetration/ aspiration and no apparent risk for aspiration. Results suggest the patient's swallowing skills are within normal limits and she may remain on Regular Diet and Liquids. She is referred back to her physician for further assessment of her complaints. Thank you for this referral.
== END 2024-03-21 13:41 | disposition home or self-care (01) ==
PROVIDERS: PCP Internal Medicine; Visit Provider Physician Assistant
DX: R13.10 Dysphagia, unspecified (principal)
CPT/HCPCS: 92611

== ENCOUNTER 2024-04-24 09:50 | Outpatient (CLI) | payer OTHER, SELFPAY ==
[2024-04-24 10:40] LABS: Beta HCG Quantitative < 2.39 mIU/ML
== END 2024-04-24 09:51 | disposition home or self-care (01) ==
LOC: ANHLAB 09:55
PROVIDERS: PCP Internal Medicine; Visit Provider Obstetrics & Gynecology
DX: N91.2 Amenorrhea, unspecified (principal)
CPT/HCPCS: 36415; 84702

== ENCOUNTER 2025-02-28 10:34 | Outpatient (CLI) | payer OTHER, SELFPAY ==
--- OUTSIDE RECORDS SUMMARY | 2025-02-28 10:39 | XMS_ITS | CONTINUITY OF CARE DOCUMENT ---
Author Name mario martin Address Unknown Organization [facility] Address [address] [place] [address] Phone [phone] Care Team Providers Care Environmental Health Sanitarian Name Role Phone Julio Chadwick MD Unavailable [phone] Caleb Wei MD Unavailable PROBLEMS Condition Status Date Provider Notes Cardiology examination active Krishna Freeman ri Palpitations active Krishna Ann Marie CHEST PAIN active Krishna Ann Marie ENCOUNTERS Date Type Provider Location Encounter Diag nosis - In-person encounter Office Visit Julio Chadwick MD [facility] Cardiology examinationPalpitationsCHEST PAIN VITAL SIGNS Date Observation Value Provider Body Mass Index (Ratio) 23.34 kg/m2 Umesh Jesus respiratory rate E&M 17 /min Layne johnson blood pressure, diastolic 89 mm[Hg] Ingrid Platt blood pressure, systolic 148 mm[Hg] Any meir Platt pulse rate 78 /min Layne Platt height E&M 64 [in_i] Layne Platt oxygen saturation, oximetry 99 % Layne Platt weight E&M 136 [lb_av] Layne Platt blood pressure, cuff size large An rebecca Platt SOCIAL HISTORY Date Observation Value Provider social history reviewed E&M reviewed - no changes required Julio Chadwick MD smoking status Never smoker Layne Platt INSURANCE PROVIDERS Payer name Policy type / Coverage type [place] red green party ID [facility] [id number] Other [id number] ADVANCE DIRECTIVES Name Date DISCUSSED - NO DECISION MADE TREATMENT PLAN Date Name Performer [id number],W,Will obtain e cho, carotid duplex, RPM Krishna Ann Marie [id number],W,. Also can have very rapid Heart rate up to 200 both with and without exertion. Will obtain echo, carotid duplex, RPM Krishna Ann Marie Cardiology:Will obtain echo, car otid duplex, RPM Krishna Ann Marie Cardiology:.Also can have very rapid Heart rate up to 200 both with and without exertion. Will obtain echo, carotid duplex, RPM Krishna Ann Marie Date Name RPM (remote patient monitoring) Carotid Duplex Bilat eral Complete Echo HISTORY OF PROCEDURES Procedure Date Procedure Name Provider Procedure Notes S blossomus EKG Julio Chadwick MD completed
--- OUTSIDE RECORDS SUMMARY | 2025-02-28 10:39 | XMS_ITS | Encounter Summary ---
Author Organization [facility] Address [address] [place] [address] Care Team Providers Care Propellant Assembler Name Role Phone Boone Bellamy MD Primary Care Provider [phone] Encounter Details Date Type Department Care Team (Late st Contact Info) Description 02/06/2020 Lab Requisition [facility] [address] [facility] [place] [id number] Ginette Davis MD [address] [place] [address] Social History Tobacco Use Types Packs/Day Years Used Date Smoking Tobacco: Never Assessed Comments Unknown Sex and Gender Information Value Date Recorded Sex Assigned at Not on file Legal Sex Female 2:21 PM CDT Gender Identity Not on file Sexual Orientation Not on file documented as of this encounter Plan of Treatment Not on file documented as of this encounter Procedures Procedure Name Priority Date/Time Associated Diagnosis Comments DERMATOPATH TECHNICAL REPORT Routine 02/05/2020 12:00 AM CDT documented in this encounter Results * DERMATOPATH TECHNICAL REPORT (02/05/2020 12:00 AM CDT) Case Report Dermatopathology Report Case: [id number] Authorizing Provider: Ginette Davis MD Collected: 02/05/2020 12:00 AM Ordering Location: [facility] Received: 02/06/2020 10:25 AM Pathologist: Araseli Fraire MD Specimens: A) - Skin, central chest B) - Skin, central abd 0 12:23 PM CDT DERMATOPATHOLOGY LABORATORY Addendum 1 At the request of the diagnosing physician, technical component for Leeds/Melan A was performed on specimen B at [facility]. 0 12:23 PM CDT DERMATOPATHOLOGY LABORATORY Addendum electronically signed by Araseli Fraire MD on 02/10/2020 at 1223 CDT Clinical History A-B: R/O nevus, irregular border, irregular color. 0 12:23 PM CDT DERMATOPATHOLOGY LABORATORY Gross Description Specimen A: Received is one formalin filled container labeled with the patient's name and designated central chest. The specimen consists of a shave measuring [id number]. Jar 0. Specimen B: Received is one formalin filled container labeled with the patient's name and designated central abd. The specimen consists of a shave measuring 4p1h6mc. Jar 0. [facility] performed the technical component only. 0 12:23 PM CDT DERMATOPATHOLOGY LABORATORY Embedded Images 0 12:23 PM CDT DERMATOPATHOLOGY LABORATORY DISCLAIMER An external and internal positive and negative controls are appropriate for the histochemical, immunohistochemical and immunofluorescence stain(s) in this case (if any), except where stated explicitly. The performance characteristics of the stain(s) cited in this report were developed and its performance characteristic determined by the Dermatopathology Laboratory at [facility], directed by Dr. Krista Kern. These tests need not be, and therefore are not, approved by the [place] Food and Drug Administration. The tests are used for clinical purposes. 0 12:23 PM CDT DERMATOPATHOLOGY LABORATORY at 1331 CDT Pathology/Cytology TISSUE SPECIMEN FROM SKIN / Unknown 02/05/2020 02/06/2020 10:25 AM CDT Miscellaneous samples (specimen) TISSUE SPECIMEN FROM SKIN / Unknown 02/05/2020 02/06/2020 10:25 AM CDT Ginette Davis MD LAB - PATHOLOGY/CYTOLOGY OR DERABLES Edited Result - Final DERMATOPATHOLOGY LABORATORY [facility] - Department of Dermatology Supervisor [employer] [place] [address], [facility] [phone] documented in this encounter Visit Diagnoses Not on filedocumented in this encounter Care Teams Propellant Assembler Relationship Specialty Start Date End Date Boone Bellamy MD [address] [place] [address] PCP - General 02/05/20 01/07/25 documented as of this encounter
--- OUTSIDE RECORDS SUMMARY | 2025-02-28 10:39 | XMS_ITS | Clinical Summary ---
Author Organization [facility] Address [address] [place] [id number] Care Team Providers Care Plunger Scoop Operator Name Role Phone Caleb Wei MD Primary Care Provider [phone] Allergies No known active allergies Medications valACYclovir (VALTREX) 1 gram tablet TK 2 TS PO BID FOR 1 DAY 3 9 Active vit 96-budv-zdczw-d guzman 27mg iron- 800 mcg-250 mg capsule Take by mouth Active biotin 1 mg capsule Take by mouth Active alpha lipoic acid 600 mg capsule TAKE ONE CAPSULE BY MOUTH THREE TIMES DAILY 90 capsule 3 2 Active escitalopram (LEXAPRO) 10 mg tablet 2 Active methylcellulose , laxative, powder Take 1 tablespoon (approximately 15gm) at night/evening daily with 8-16 ounces of water. 1191 g [address] (NexIUM) 40 mg capsule TAKE 1 CAPSULE BY MOUTH DAILY BEFORE BREAKFAST 90 capsule 3 Active Active Problems Problem Noted Date Diagnosed Date Globus sensation 10/04/2022 Epigastric abdominal pain 10/04/2022 Surgical History Surgery Date Site/Laterality Comments APPENDECTOMY TONSILLECTOMY SECTION 12/25/2019 - 01/23/2020 SECTION 01/23/2022 - 02/22/2022 UPPER GASTROINTESTINAL ENDOSCOPY Medical History Medical History Date Comments Known health problems: none Social History Tobacco Use Types Packs/Day Years Used Date Smoking Tobacco: Never Smokeless Tobacco: Never Tobacco Cessation:Counseling Given: Not Answered Alcohol Use Standard Drinks/Week Comments Yes 0 (1 standard drink = 0.6 oz pur e alcohol) AUDIT-C Answer Date Recorded Q1: How often do you have a drink containing alc ohol? Monthly or less 10/07/2022 Q2: How many drinks containi ng alcohol do you have on a typical day when you are drinking? 1 or 2 10/07/2022 Q3: How often do you have si x or more drinks on one occasion? Never 10/07/2022 PHQ-2 Answer Date Recorded PHQ-2 Total Score (If total score is 3 or more points, staff should administer the PHQ-9) 0 10/04/2022 Personal Safety Answer Date Recorded Getting School Help Needed Not on file 10/08 Comments No Sex and Gender Information Value Date Recorded Sex Assigned at Not on file Legal Sex Female 4:26 PM CDT Gender Identity Not on file Sexual Orientation Not on file Obstetrics History Last Filed Vital Signs Vital Sign Reading Time Taken Comments Blood Pressure 118/78 11/15/2022 3:32 PM BACK SEWER Pulse 75 11/15/2022 3:32 PM BACK SEWER Temperature 36.5 C (97.7 F) 11/15/2022 3:32 PM BACK SEWER Respiratory Rate 20 11/15/2022 3:32 PM BACK SEWER Oxygen Saturation 99% 11/15/2022 3:32 PM BACK SEWER Inhaled Oxygen Concentration - - Weight 58.1 kg (128 lb) 11/15/2022 3:32 PM BACK SEWER Height 162.6 cm (5' 4) 11/15/2022 3:32 PM BACK SEWER Body Mass Index 21.97 11/15/2022 3:32 PM BACK SEWER Plan of Treatment Health Maintenance Due Date Last Done Comments Cervical Cancer Screening 1992 Hepatitis C Screening 1992 Varicella Vaccines (1 of 2 - 13+ 2-dose series) 2005 Hepatitis B Screening 2010 Regular Well Visit/Exam 18-64 2010 Depression Screening 10/04/2023 10/04/2022 Covid-19 Vaccine (3 - 2023-2 5 season) 2024 11/24/2020, 10/22/2020 Influenza Vaccine (Season Ended) 2025 09/09/2021, 08/04/2020, 2019 DTaP/Tdap/Td Vaccine (3 - Td or Tdap) 11/28/2031 11/27/2021, 10/22/2019 HPV Vaccines Aged Out No longer eligi ble based on patient's age to complete this topic Pneumococcal vaccine <65 Aged Out No longer eligible based on patient's age to complete this topic Insurance Care Teams Plunger Scoop Operator Relationship Specialty Start Date End Date Caleb Wei MD PCP - General Internal Medicine 03/19/19
--- OUTSIDE RECORDS SUMMARY | 2025-02-28 10:39 | XMS_ITS | Clinical Summary ---
Author Organization [facility] Care Team Providers Care Fertilizer Processing Supervisor Name Role Phone Unavailable Primary Care Provider Unavailabl e Social History Tobacco Use Types Packs/Day Years Used Date Smoking Tobacco: Never Assessed Comments Unknown Sex and Gender Information Value Date Recorded Sex Assigned at Not on file Legal Sex Female 11:19 AM AIRCRAFT RIVETER Gender Identity Not on file Sexual Orientation Not on file Plan of Treatment Health Maintenance Due Date Last Done Comments Hepatitis C Virus (HCV) Screening 1992 Hepatitis B Immunization (1 of 3 - 19+ 3-dose series) 2011 Pap Smear 2013 Cervical Cancer Screening (CCS) 2022 HPV/Cotest 2022 Influenza Immunization (#1) 05/26/202407/26, 2019 SARS-COV-2 Immunization ( season) 2024 Respiratory Syncytial Virus (RSV) Immunization (Adult) (1 - 1-dose 75+ series) 2067 DTaP/Tdap/Td Immunization Discontinued 10/22/2019 TdaP Immunization Completed 10/22/2019 Meningococcal Immunization (ACWY) Aged Out No longer eligible based on patient's age to complete this topic Pneumococcal Immunization Combined Aged Out No longer eligible based on patient's age to complete this topic Rotavirus Immunization Aged Out No lo nger eligible based on patient's age to complete this topic
--- OUTSIDE RECORDS SUMMARY | 2025-02-28 10:39 | XMS_ITS | Data Portability ---
Author Organization [facility] [employer], Main Office Address [address] [place] [address] Assessment No assessment recorded. Plan of Treatment Reminders Order Date Submit Date Provider Last Modified By Organization Details Last Modified Time Details Appointments None recorded. Lab CBC w/ auto diff [address] (Lab), [address] [place], [address], 5 11:14:14 CMP, serum or plasma [address] (Lab), [address] [place], [address], 5 11:14:15 lipid panel, serum [address] (Lab), [address] [place], [address], 5 11:14:15 TSH, serum or plasma [address] (Lab), [address] [place], [address], 5 11:14:15 CBC w/ auto diff 2023 024 [facility] (Lab), [address] [place], [address], 4 16:21:20 vitamin D, 25-hydroxy, total, serum 2023 024 [facility] (Lab), [address] [place], [address], 4 16:21:26 vitamin B12 + folate, serum or blood 2023 024 [facility] (Lab), [address] [place], [address], 4 16:21:15 TSH, serum or plasma [address] (Lab), [address] [place], [address], 4 09:26:22 T4, free, serum [address] (Lab), [address] [place], [address], 4 09:26:22 T3, free, serum or plasma 2023 024 [facility] (Lab), [address] [place], [address], 4 16:21:10 lipid panel, serum [address] (Lab), [address] [place], [address], 4 09:26:21 CMP, serum or plasma [address] (Lab), [address] [place], [address], 4 09:26:22 lipid panel, serum [email or web address] (Lab), [address] [place], [address], 3 08:24:37 CMP, serum or plasma 2022 023 [email or web address] [email or web address] [facility] (Lab), [address] [place], [address], 3 08:24:37 Referral None recorded. Procedures None recorded. Surgeries None recorded. Imaging None recorded. Medication Orders esomeprazol e magnesium 40 mg capsule,del ayed release 2023 024 [email or web address] [id number] [address] [facility], [place], [place], [id number], 5 10:39:12 Patient TargetsNo targets recorded. Patient InstructionsNo instructions recorded. Reason for Referral None Reported. Results Created Date Observation Date Name Description Value Unit Range Abnormal Flag Note LastModifiedBy Organization Detail LastModifiedTime 04/20/2004/20/2023 LIPID PANEL cholesterol 174 mg/dL 140-19 9 [facility] DEANDRE NSUS RECOM MENDA TION FOR ADRIA STERO L: ADULT CHILD LOW RISK: <200 <170 BORDE RLINE : <200- 239 ----- HIGH RISK: >240 >200 Not Available [facility] (Lab) [address] [place], [address], 04/20/2023 20:47:40 04/20/20 23 04/20/2023 LIPID PANEL triglyceride s 46 mg/dL 0-150 NIH DEANDRE NSUS REPOR T RECOM MENDA TION FOR TRIGL YCERI NARAYAN: ADULT CHILD LOW RISK: <150 ----- BODER LINE: 150-1 99 ----- HIGH RISK: >200 ----- Not Available [facility] (Lab) [address] [place], [address], 04/20/2023 20:47:40 04/20/20 23 04/20/2023 LIPID PANEL HDL cholesterol 65 mg/dL 40- Not Available [facility] (Lab) [address] [place], [address], 04/20/2023 20:47:40 04/20/20 23 04/20/2023 LIPID PANEL LDL cholesterol, calculated 100 mg/dL 0-130 NIH DEANDRE NSUS REPOR T RECOM MENDA TIONS FOR LDL: ADULT CHILD LOW RISK <130 <110 (OPTI MAL LDL) <100 ----- YODIT RLINE : 130-1 59 ----- HIGH RISK: >160 >130 A TRIGL YCERI DE RESUL T >400 INVAL IDATE S THE CALCU LATIO N FOR LDL FRACT IONAT ION - THE LDL RESUL T WILL NOT BE REPOR GONZALO. Not Available [facility] (Lab) [address] [place], [address], 04/20/2023 20:47:40 04/20/20 23 04/20/2023 COMPR EHENS LJ METAB OLIC PANEL sodium 138 mmol/ L 137-14 5 Not Available [facility] (Lab) [address] [place], [address], 04/20/2023 20:47:50 04/20/20 23 04/20/2023 COMPR EHENS LJ METAB OLIC PANEL potassium 4.4 mmol/ L 3.5-5. 1 Not Available [facility] (Lab) [address] [place], [address], 04/20/2023 20:47:50 04/20/20 23 04/20/2023 COMPR EHENS LJ METAB OLIC PANEL chloride 102 mmol/ L 98-107 Not Available [facility] (Lab) [address] [place], [address], 04/20/2023 20:47:50 04/20/20 23 04/20/2023 COMPR EHENS LJ METAB OLIC PANEL carbon dioxide 28 mmol/ L 22-30 Not Available [facility] (Lab) [address] [place], [address], 04/20/2023 20:47:50 04/20/20 23 04/20/2023 COMPR EHENS LJ METAB OLIC PANEL anion gap 12.4 mmol/ L 14-22 low Not Available [facility] (Lab) [address] [place], [address], 04/20/2023 20:47:50 04/20/2004/20/2023 COMPR EHENS LJ METAB OLIC PANEL glucose 75 mg/dL 70-99 Not Available [facility] (Lab) [address] [place], [address], 04/20/2023 20:47:50 04/20/20 23 04/20/2023 COMPR EHENS LJ METAB OLIC PANEL BUN 12 mg/dL 8-19 Not Available [facility] (Lab) [address] [facility] [place], [address], 04/20/2023 20:47:50 04/20/20 23 04/20/2023 COMPR EHENS LJ METAB OLIC PANEL creatinine 0.69 mg/dL 0.66-1 .25 Not Available [facility] (Lab) [address] [place], [address], 04/20/2023 20:47:50 04/20/20 23 04/20/2023 COMPR EHENS LJ METAB OLIC PANEL GFR >60 Refer ence Range : [place] ge GFR Healt hy Adult : >60 mL/mi n/1.7 3 m2 Chron ic Kidne y Disea se: 15-60 mL/mi n/1.7 3 m2 Kidne y Failu re: <15/m L/min /1.73 m2 www.n iddk. nih.g ov The MDRD study equat ion has not been valid ated in child becca <18 years of age; pregn ant women ; the elder ly >85 years of age; or in some racia l or ethni c subgr oups, such as Hispa nics. Outsi de the valid ated josephine eters , estim ated GFR is less accur ate, requi ring clini herber judgm ent on a case- by-ca se basis . Clini herber inter preta tion for other races and ages must be made by the clini baljeet. The MDRD study equat ion has not been valid ated for the evalu ation of serum creat inine relat ed to nutri jameson l statu s or medic ation usage . For perso ns <18 years of age, a pedia tric GFR calcu lator is avail able on the [facility] websi te: https ://williams lai.brannon vasquezy.o rg/pr ofess ional s/kdo qi/gf r_cal culat or Not Available [facility] (Lab) [address] [place], [address], 04/20/2023 20:47:50 04/20/20 23 04/20/2023 COMPR EHENS LJ METAB OLIC PANEL alkaline phosphatase 43 U/L 38-126 Not Available [facility] (Lab) [address] [place], [address], 04/20/2023 20:47:50 04/20/20 23 04/20/2023 COMPR EHENS LJ METAB OLIC PANEL alanine aminotransfe rase 25 U/L 0-35 Not Available [facility] (Lab) [address] [place], [address], 04/20/2023 20:47:50 04/20/20 23 04/20/2023 COMPR EHENS LJ METAB OLIC PANEL aspartate aminotransfe rase 33 U/L 15-37 Not Available [facility] (Lab) [address] [place], [address], 04/20/2023 20:47:50 04/20/20 23 04/20/2023 COMPR EHENS LJ METAB OLIC PANEL bilirubin, total 0.60 mg/dL 0.20-1 .30 Not Available [facility] (Lab) [address] [place], [address], 04/20/2023 20:47:50 04/20/20 23 04/20/2023 COMPR EHENS LJ METAB OLIC PANEL calcium 8.7 mg/dL 8.4-10 .2 Not Available [facility] (Lab) [address] [place], [address], 04/20/2023 20:47:50 04/20/20 23 04/20/2023 COMPR EHENS LJ METAB OLIC PANEL total protein 7.3 g/dL 6.3-8. 2 Not Available [facility] (Lab) [address] [place], [address], 04/20/2023 20:47:50 04/20/20 23 04/20/2023 COMPR EHENS LJ METAB OLIC PANEL albumin 4.3 g/dL 3.4-5. 0 Not Available [facility] (Lab) [address] [place], [address], 04/20/2023 20:47:50 04/20/20 23 04/20/2023 COMPR EHENS LJ METAB OLIC PANEL globulin 3.0 g/dL 2.6-4. 2 Not Available [facility] (Lab) [address] [place], [address], 04/20/2023 20:47:50 04/20/20 23 04/20/2023 COMPR EHENS LJ METAB OLIC PANEL A/G ratio 1.4 ratio 1.0-2. 0 Not Available [facility] (Lab) [address] [place], [address], 04/20/2023 20:47:50 09/23/20 22 09/23/2022 CT, neck, soft tissu e, w/o contr ast No observ ation record ed. [id number] [place] [address], [address], 11/23/2022 18:52:39 10/12/19 23 10/12/2022 , mamadou dawkins No observ ation record ed. [id number] [place] [id number] [address], [address], 11/23/2022 18:52:39 10/19/19 23 10/18/2022 CT, abdom en + pelvi s, w/wo contr ast No observ ation record ed. [id number] [facility] [address], [place], [address], 11/23/2022 18:52:39 06/02/20 23 05/31/2023 elect rocar diogr am, routi ne ECG, 12 leads min; inter preta tion and repor t (PROC ) No observ ation record ed. [email or web address] Not Available 2022 09:28:43 Result Notes None recorded. Problems Name Problem SNOMED Code Status Onset Date Resolution Date Notes Provider Name and Address Organization Details Recorded Time Pain in throat 483131203 Completed 202108/10/2022 Not Available [facility] 3 18:51:48 Abdominal pain 94598825 Active 2021 Not Available [facility] 3 18:51:49 Abdominal pain 97010197 Completed 202006/22/2022 Not Available [facility] 3 18:51:49 Right upper quadrant pain 336628196 Active 2022 Not Available [facility] 3 18:51:49 Hypothyroi dism 47891397 Active 2021 Not Available [facility] 3 18:51:49 Anxiety 25028194 Active 2021 Not Available [facility] 3 18:51:49 Hyperlipid emia 57486460 Active 2021 Not Available [facility] 3 18:51:49 Hemorrhoid s 59831984 Active 2021 Not Available [facility] 3 18:51:49 Paresthesi a of lower extremity 061881845 Active 2022 Caleb Wei MD [address] [facility], [facility] [address], [place], [address] , [place] [facility] [employer] [facility] 3 10:42:43 Menorrhagi a 483546658 Active 2023 Virgen Saldivar NP [address], [place], [address] , [facility] [employer] [facility] 4 14:35:19 Malaise and fatigue 531654949 Active 2023 Virgen Saldivar NP [address], [place], [address] , [facility] [employer] [facility] 4 14:36:24 Subclinica l hyperthyro idism 561349256 Active 2023 Susan Hightower LPN null, [facility] [employer] [facility] 4 12:21:17 Gastroesop hageal reflux disease 150334404 Active 2023 Caleb Wei MD [address], [place], [address] , [facility] [employer] [facility] 4 13:09:33 Neck pain 24143435 Active 2023 Caleb Wei MD [address], [place], [address] , [facility] [employer] [facility] 4 13:13:51 Problem Notes None recorded. Procedures Surgical History Date Name Laterality Status Provider Name and Address Organization Details Recorded Time 01/08/20 20 section completed Not Available [facility] 09/2022 18:51:20 Appendectomy completed Not Available [facility] 11/23/2022 18:51:20 Imaging Results None recorded. Procedure Notes None recorded. Medical Equipment None Reported. Medications Name Sig Start Date Stop Date Status Note LastModified by Organization Details LastModified Time amoxicillin 500 mg capsule 12/29 completed Not Available Not Available Not Available prednisone 10 mg tablet TK ONE T PO BID. 11/23 completed Not Available Not Available Not Available fluconazole 150 mg tablet 11/23 completed Not Available Not Available Not Available valacyclovi r 1 gram tablet TK 2 TS PO BID FOR 1 DAY 12/29 completed Not Available Not Available Not Available hydrocodone 5 mg-acetamin ophen 325 mg tablet active Not Available Not Available No t Available phenazopyri dine 200 mg tablet 11/23 completed Not Available Not Available Not Available metronidazo le 0.75 % (37.5 mg/5 gram) vaginal gel active Not Available Not Available Not Available Tubersol 5 tub. unit/0.1 mL intradermal injection solution Take 0.1 mL by intraderm al route. 11/23 completed [facility]#4 9281- [phone] Not Available Not Available Not Available acetaminoph en 300 mg-codeine 30 mg tablet 12/19 completed Not Available Not Available Not Available Tamiflu 75 mg capsule Take 1 capsule twice a day by oral route for 5 days. 01/11 completed Not Available Not Available Not Available omeprazole 40 mg capsule,del ayed release 10/10 completed Not Available Not Available Not Available amoxicillin 500 mg tablet 03/02 completed Not Available Not Available Not Available ciclopirox 8 % topical solution 12/02 completed Not Available Not Available Not Available amoxicillin 875 mg tablet 06/22 completed Not Available Not Available Not Available lorazepam 0.5 mg tablet 01/11 completed Not Available Not Available Not Available meclizine 25 mg tablet TK 1 T PO BID PRN active Not Available Not Available No t Available pantoprazol e 40 mg tablet,mihir yed release Take 1 tablet every day by oral route. active Not Available Not Available No t Available esomeprazol e magnesium 40 mg capsule,del ayed release Take 1 capsule every day by oral route in the morning. 02/24 completed Not Available Not Available Not Available neomycin-po lymyxin-dex ameth 3.5 mg/mL-10,00 0 unit/mL-0.1 % eye drops 12/02 completed Not Available Not Available Not Available mupirocin 2 % topical ointment 03/02 completed Not Available Not Available Not Available ibuprofen 600 mg tablet 12/19 completed Not Available Not Available Not Available cefdinir 300 mg capsule 12/19 completed Not Available Not Available Not Available fluticasone propionate 50 mcg/actuati on nasal spray,suspe nsion 12/19 completed Not Available Not Available Not Available dicyclomine 10 mg capsule Take 1 capsule 3 times a day by oral route as needed. 01/11 completed Not Available Not Available Not Available amoxicillin 875 mg-potassiu m clavulanate 125 mg tablet TK 1 T PO BID 09/12 completed Not Available Not Available Not Available azithromyci n 500 mg tablet 12/19 completed Not Available Not Available Not Available escitalopra m 10 mg tablet Take 1 tablet every day by oral route. active Not Available Not Available No t Available escitalopra m 20 mg tablet Take 1 tablet every day by oral route. 02/24 completed Not Available Not Available Not Available Avar 10 %-5 % (w/w) topical cleanser 12/02 completed Not Available Not Available Not Available azelaic acid 15 % topical gel 03/02 completed Not Available Not Available Not Available nitrofurant oin monohydrate /macrocryst als 100 mg capsule 03/02 completed Not Available Not Available Not Available Boostrix Tdap 2.5 Lf unit-8 mcg-5 Lf/0.5 mL intramuscul ar suspension TO BE ADMINISTE RED BY PHARMACIS T FOR IMMUNIZAT ION 04/24 completed Not Available Not Available Not Available chlorhexidi ne gluconate 0.12 % mouthwash 12/19 completed Not Available Not Available Not Available biotin 2020 active Not Available Not Available Not Avai lable 01/11 completed Not Available Not Available Not Available Chlo Tuss 1 mg-30 mg-12.5 mg/5 mL oral liquid TK 5 TO 10 ML PO Q 6 H 12/19 completed Not Available Not Available Not Available Blisovi Fe 10/14 (28) 1 mg-20 mcg (21)/75 mg (7) tablet 11/23 completed Not Available Not Available Not Available Anusol-HC 2.5 % topical cream with perineal applicator APPLY A THIN LAYER TO THE AFFECTED AREA(S) BY TOPICAL ROUTE 3 TIMES DAILY 01/11 completed Not Available Not Available Not Available Norlyda 0.35 mg tablet 01/11 completed Not Available Not Available Not Available Fluzone Quad (PF) 60 mcg (15 mcg x 4)/0.5 mL IM syringe TO BE ADMINISTE RED BY PHARMACIS T FOR IMMUNIZAT ION 04/24 completed Not Available Not Available Not Available Vitals Date Recorded Body mass index (BMI) Body height Oxygen saturation Oxygen saturation in Arterial blood by Pulse oximetry Heart rate Body temperature Body weight Systolic blood pressure Diastolic blood pressure Provider Name and Address Organization Details Last Updated DateTime 3 21.3 kg/m2 162.56 cm 99 % 99 % 90 /min 97.8 [degF] 21203.4 5 g 140 mm[Hg] 90 mm[Hg] Not Available [facility] 3 18:51:26 Date Recorded Body height Body mass index (BMI) Body weight Body temperature Heart rate Oxygen saturation Oxygen saturation in Arterial blood by Pulse oximetry Systolic blood pressure Diastolic blood pressure Provider Name and Address Organization Details Last Updated DateTime 3 162.56 cm 22.5 kg/m2 40114.6 g 97.2 [degF] 73 /min 99 % 99 % 118 mm[Hg] 80 mm[Hg] Daina Hayes RN PA [employer] 3 10:23:48 Date Recorded Body weight Body mass index (BMI) Body height Body temperature Heart rate Oxygen saturation Oxygen saturation in Arterial blood by Pulse oximetry Systolic blood pressure Diastolic blood pressure Provider Name and Address Organization Details Last Updated DateTime 4 33807.0 3 g 21.9 kg/m2 162.56 cm 97.6 [degF] 73 /min 97 % 97 % 122 mm[Hg] 80 mm[Hg] AQUILES Friend PA [employer] 4 14:16:17 Date Recorded Body height Body mass index (BMI) Body weight Body temperature Heart rate Respiratory rate Oxygen saturation Oxygen saturation in Arterial blood by Pulse oximetry Systolic blood pressure Diastolic blood pressure Provider Name and Address Organization Details Last Updated DateTime 4 162.56 cm 21.8 kg/m2 68472.2 3 g 97.7 [degF] 76 /min 16 /min 99 % 99 % 112 mm[Hg] 58 mm[Hg] Monica Potter MA [employer] 4 12:37:54 Date Recorded Body weight Body mass index (BMI) Body height Body temperature Heart rate Oxygen saturation Oxygen saturation in Arterial blood by Pulse oximetry Systolic blood pressure Diastolic blood pressure Provider Name and Address Organization Details Last Updated DateTime 5 89724.9 7 g 23.2 kg/m2 162.56 cm 97.1 [degF] 70 /min 99 % 99 % 124 mm[Hg] 64 mm[Hg] AQUILES Helms [place] [facility] [place] [employer] 5 10:38:55 Social History Question Answer Notes LastModified by Organizat ion Details LastModified Time Tobacco Smoking Status Never Smoker Not Available [employer] 11/23/2022 18:51:19 What Is Your Level Of Caffeine Consumption? None [id number] Information not available 11/23/2022 How Much Tobacco Do You Chew? None [id number] Information not available 11/23/2022 What Type Of Diet Are You Following? REGULAR [id number] Information not available 11/23/2022 Which Illicit Or Recreational Drugs Have You Used? None [id number] Information not available 11/23/2022 How Much Tobacco Do You Smoke? No [id number] Information not available 11/23/2022 Sex: Unknown Functional Status Question Answer Note LastModified by Organizat ion Details LastModified Time What is your level of alcohol consumption? Occasional [id number] Information not available 11/23/2022 Do you or have you ever used smokeless tobacco? Never used smokeless tobacco [id number] Information not available 11/23/2022 Do you or have you ever used e-cigarettes or vape? Never used electronic cigarettes [id number] Information not available 11/23/2022 What is your exercise level? Moderate [id number] Information not available 11/23/2022 Mental Status None recorded. Family History Relationship Description Onset Age of this Age Resolved Age Notes LastModified by Organization Details LastModified Time Maternal Grandmother Diabetes mellitus [id number] Not available 11/23/2022 18:51:21 Medical History No medical history recorded. Gynecological HistoryNo gynecological history recorded. Obstetrics History GPAL:G 0 P 0 0 0 0 Immunizations Vaccine Type Date Status Note Provider Nam e and Address Organization Details Recorded Time COVID-19, mRNA, LNP-S, PF, 100 mcg/0.5mL dose or 50 mcg/0.25mL dose 1 completed Not Available [employer] 11/23/2022 18:52:36 COVID-19, mRNA, LNP-S, PF, 100 mcg/0.5mL dose or 50 mcg/0.25mL dose 1 completed Not Available [facility] 11/23/2022 18:52:36 Tdap 0 completed Not Available [facility] 11/23/2022 18:52:36 Influenza, split virus, quadrivalent, preservative 9 completed Not Available [facility] 11/23/2022 18:52:36 TST-PPD intradermal 7 completed Not Available [facility] 11/23/2022 18:52:37 Past Encounters Encounter ID Performer Location Encounter Start Date Encounter Closed Date Diagnosis/Indication Diagnosis SNOMED-CT Code Diagnosis ICD10 Code Diagnosis Note [id number] Caleb Wei MD [facility] Internal Med [address] [place] [address] 12/02/2020 00:00:00 12/02/2020 14:51:50 [id number] Caleb Wei MD [facility] Internal Med [address] [place] [address] 03/02/2022 00:00:00 03/02/2022 13:31:03 [id number] Caleb Wei MD [facility] Internal Med [address] [place] [address]. [place] [address] 06/22/2022 00:00:00 06/22/2022 15:28:50 [id number] Caleb Wei MD [facility] Internal Med [address] [place] [address] 06/27/2022 00:00:00 06/27/2022 11:58:11 [id number] MD DARRIAN Choudhury[facility] Internal Med [address] [place] [address] 07/13/2022 00:00:00 07/13/2022 16:04:42 [id number] Caleb Wei MD [facility] Internal Med [address] [place] [address] 09/12/2022 00:00:00 09/12/2022 16:15:48 [id number] Caleb Wei MD [facility] Internal [address] [place] [address] 10/10/2022 00:00:00 10/10/2022 12:35:21 [id number] Caleb Wei MD [facility] Internal [address] [address] 12/29/2022 10:05:34 12/29/2022 10:57:12 Anxiety 58551739 F41.9 much better Paresthesi a of lower extremity 705477235 R20.2 duloxetine discussed, wants to wait Hyperlipidemia 71540629 E78.5 [id number] Caleb Wei MD [facility] Internal [address] [place] [address] 01/12/2024 14:09:18 01/12/2024 14:42:34 Hyperlipidemia 72667613 E78.5 Hypothyroidism 11226886 E03.9 Menorrhagia 733045500 N9 2.0 Malaise and fatigue 2717 98698 R53.81 [id number] Caleb Wei MD [facility] Internal [address] [address] 02/22/2024 12:29:52 02/22/2024 13:10:40 Anxiety 74609927 F41.9 better Gastroesop hageal reflux disease 185575504 K21.9 try meds for a month and let me know if not better Neck pain 84252585 M54.2 muscular,s tretching, exercises [id number] Caleb Wei MD [facility] Internal [address] [address] 02/24/2025 10:34:49 02/24/2025 11:13:22 Anxiety 14373632 F41.9 under control General ex amination of patient 968133910 Z00.00 Mammogram- NEVERFLU- Not always Thyroid di sorder screening 089045350 Z13.29 Health Concerns Section Related Observation LastModified by Organization Detai ls LastModified Time None Recorded Concern Status LastModified by Organization Details LastModified Time None Recorded Advance Directives Directive None Recorded Payers Encounter Date Sequence Insurance Name Policy Number Policy Cueva Covered Member ID Cueva Member ID Guarantor Name 12/29/2022 1 [facility] [id number] Madalan E Hoguet [id number] Madalan Hoguet 01/12/2024 1 [facility] [id number] Madalan E Hoguet [id number] Madalan Hoguet 02/22/2024 1 [facility] [id number] Madalan E Hoguet [id number] Madalan Hoguet 02/24/2025 1 [facility] [id number] Madalan E Hoguet [id number] Guillermoalan Hoguet Notes Date Note Type Note Provider Name and Address Organization Details Recorded Time 12/29/2022 text/html 2 mo f/u Anxiety- on Escitalopram 20 mg qd, seen aaron, symptoms are much better, mood is stable, sleeps fine. 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 pt c/o still experiencing tingling bilat lowers legs below the knees, seen neurologist, had neg NCS, has no neuropathy,would like blood work todayabdominal pain has improved, but still feels burning in the area last notept is here for 1 mo f/u from erc/o severe abdominal pain that radiates to the right shoulder. worse after eating. burning sensation. rates 7/10 pain right now. Pain in upper abd and right sidedseen GI, just had EGD, started on nexium, no helpshe has some nausea, no vomitingno diarrhea Caleb Wei MD [address], [address], [place], [address], [employer] 12/29/2022 10:45:34 01/12/2024 text/html She is here for an annual check up, has not been seen in a year, would like check up and update labs. Virgen Saldivar NP [address], [address], [place], [address], [employer] 01/12/2024 14:39:34 02/22/2024 text/html Has had a MRI C spine last yr c5-c6 a disk protusion, She still has been having tingling in the cervical area and mid section.no tingling in the arms /finger, MRI reviewed. Every since she had her daughter she has had a burning in her upper abdomen area (2yrs ago). Has been checked for a herniaDoes have diastasis rectiHas seen different Drs and no one has given her a exact reasonshe had EGD and GB ultra sound in the past,, nl Anxiety- On meds and helping, has seen aaron, symptoms are much better, mood is stable, sleeps fine. she has no stress at work.Meds- Escitalopram 20 mg qd Caleb Wei MD [address], [place], [address], [employer] 02/22/2024 13:14:57 02/24/2025 text/html Pt is here today for her yearly exam.PT IS NOT FASTING ( [facility] )Needs labs Anxiety- On meds and helping, has seen aaron ( [place] [facility]- Dr. Eric Mcrae), symptoms are much better, mood is stable, sleeps fine. 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 Has tried higher dose, could not tolerate due to drowsiness.Meds- Escitalopram 10 mg qd Caleb Wei MD [address], [place], [address], [employer] 02/24/2025 11:12:06 OBGyn Episode No OBEpisode recorded.
--- OUTSIDE RECORDS SUMMARY | 2025-02-28 10:39 | XMS_ITS | Referral Summary ---
Author Organization [facility] Address Formerly [facility] [place] [address] Care Team Providers Care Global Technical Writer Name Role Phone Caleb Wei MD Primary Care Provider [phone] Allergies No known active allergies Medications valACYclovir (VALTREX) 1 gram tablet TK 2 TS PO BID FOR 1 DAY 3 9 Active vit [id number]-d guzman 27mg iron- 800 mcg-250 mg capsule [...] Globus sensation 10/04/2022 Epigastric abdominal pain 10/04/2022 Social History Tobacco Use Types Packs/Day Years [...] on file Sexual Orientation Not on file Last Filed Vital Signs Vital Sign Reading Time Taken Comments Blood Pressure 118/78 11/15/2022 3:32 PM WORKERS COMPENSATION ADMINISTRATOR Pulse 75 11/15/2022 3:32 PM WORKERS COMPENSATION ADMINISTRATOR Temperature 36.5 C (97.7 F) 11/15/2022 3:32 PM WORKERS COMPENSATION ADMINISTRATOR Respiratory Rate 20 11/15/2022 3:32 PM WORKERS COMPENSATION ADMINISTRATOR Oxygen Saturation 99% 11/15/2022 3:32 PM WORKERS COMPENSATION ADMINISTRATOR Inhaled Oxygen Concentration - - Weight 58.1 kg (128 lb) 11/15/2022 3:32 PM WORKERS COMPENSATION ADMINISTRATOR Height 162.6 cm (5' 4) 11/15/2022 3:32 PM WORKERS COMPENSATION ADMINISTRATOR Body Mass Index 21.97 11/15/2022 3:32 PM WORKERS COMPENSATION ADMINISTRATOR Plan of Treatment Not on file Insurance [facility] PL[facility] PLUS Care Teams Global Technical Writer Relationship Specialty Start Date End Date Caleb Wei MD PCP - General Internal Medicine 03/19/19
--- OUTSIDE RECORDS SUMMARY | 2025-02-28 10:39 | XMS_ITS | Clinical Summary ---
Author Organization [facility] Address [address] [place] [address] Care Team Providers Care [employer] Name Role Phone Unavailable Primary Care Provider Unavailabl e Source Comments [facility],non-owned Affiliates and Associated Physician Practices is amultiple site organization consisting of ambulatory clinics and hospital sitesin [place], [place], [place] and [place]. This disclosure is being madepursuant to the Care Everywhere program and may not contain all information available regarding this patient. Last updated 18.[facility] Social History Tobacco Use Types Packs/Day Years Used Date Smoking Tobacco: Never Assessed Comments Unknown Sex and Gender Information Value Date Recorded Sex Assigned at Not on file Legal Sex Female 2:21 PM CDT Gender Identity Not on file Sexual Orientation Not on file Plan of Treatment Health Maintenance Due Date Last Done Comments HIV SCREENING 2007 HEPATITIS C SCREENING 08/05/2010 DTAP/TDAP/TD VACCINES (1 - Tdap) 2011 HEPATITIS B VACCINE (1 of 3 - 19+ 3-dose series) 2011 COVID-19 VACCINE ( - 2023-2 5 season) 2024 DEPRESSION SCREENING 09/25/2024 INFLUENZA VACCINE (Season Ended) 2025 ZOSTER VACCINE (1 of 2) 2042 HIB VACCINE Aged Out No longer eligi ble based on patient's age to complete this topic HPV VACCINE Aged Out No longer eligi ble based on patient's age to complete this topic MENINGOCOCCAL (Group B) VACC INE SHARED DECISION-MAKING Aged Out No longer eligibl e based on patient's age to complete this topic MENINGOCOCCAL GROUPS A/C/Y/W VACCINE Aged Out No longer eligible b ased on patient's age to complete this topic PNEUMOCOCCAL VACCINE Aged Out No long er eligible based on patient's age to complete this topic Insurance [facility]
[2025-02-28 11:39] LABS: Basophils Percent Auto 0.4 % (0.2-1.2); Eosinophils Absolute Auto 0.1 K/mm3 (0-0.3); Eosinophils Percent Auto 1.2 % (0-4.4); Hematocrit 41.5 % (37.0-47.0); Hemoglobin 14.2 g/dL (12.0-15.0); Immature Granulocyte Absolute 0.02 K/mm3 (0.00-0.031); Immature Granulocyte Percent A 0.3 % (0-0.5); Lymphocytes Absolute Auto 2.07 K/mm3 (0.9-3.2); Lymphocytes Percent Auto 28.3 % (18.3-44.2); Mean Corpuscular HGB Conc 34.2 g/dl (32-36); Mean Corpuscular Hemoglobin 32.3 pg (26-34); Mean Corpuscular Volume 94.5 fl (80-100); Mean Platelet Volume 10.2 fl (7.4-10.4); Monocytes Absolute Auto 0.5 K/mm3 (0.1-0.6); Monocytes Percent Auto 6.7 % (2.6-8.5); Neutrophils Absolute Auto 4.6 K/mm3 (1.3-6.7); Neutrophils Percent Auto 63.1 % (45.5-73.1); Platelet Count Result 215 k/mm3 (150-375); Red Blood Count 4.39 M/mm3 (4.2-5.4); Red Cell Distribution Width 12.1 % (11.5-14.5); White Blood Count 7.3 K/mm3 (4.5-10.0)
[2025-02-28 11:47] LABS: Alanine Aminotransferase 24 U/L (6-35); Albumin Level 4.5 g/dL (3.5-5.1); Alkaline Phosphatase 34 U/L (38-126); Anion Gap 6 mmol/L (4-12); Aspartate Amino Transferase 30 U/L (14-36); Bilirubin,Total 0.8 mg/dL (0.2-1.3); Blood Urea Nitrogen 10 mg/dL (7-17); Calcium 9.4 mg/dL (8.4-10.2); Carbon Dioxide 28 mmol/L (22-30); Chloride 104 mmol/L (98-107); Cholesterol 146 mg/dL (0-200); Estimated Glomerular Filt Rate > 60; Glucose 86 mg/dL (65-110); HDL Direct 54 mg/dL; Potassium 4.2 mmol/L (3.4-5.0); Sodium 138 mmol/L (137-145); Total Protein 7.4 g/dL (6.3-8.2); Triglycerides 54 mg/dL (<150)
[2025-02-28 11:58] LABS: LDL Cholesterol Direct 64 mg/dL
[2025-02-28 12:17] LABS: Thyroid Stimulating Hormone < 0.015 uIU/mL (0.465-4.680)
== END 2025-02-28 10:35 | disposition home or self-care (01) ==
LOC: ANHLAB 10:36
PROVIDERS: PCP Internal Medicine; Visit Provider Internal Medicine
DX: Z00.00 Encounter for general adult medical examination without abnormal findings (principal); Z13.29 Encounter for screening for other suspected endocrine disorder
CPT/HCPCS: 36415; 80053; 80061; 84443; 85025

== ENCOUNTER 2025-03-03 13:13 | Outpatient (CLI) | payer OTHER, SELFPAY ==
--- OUTSIDE RECORDS SUMMARY | 2025-03-03 14:35 | XMS_ITS | Clinical Summary ---
Author Organization [facility] Address [address] [place] [address] Care Team Providers Care Teacher'S Aide Name Role Phone Unavailable Primary Care Provider Unavailabl e Source Comments [facility],non-owned Affiliates and Associated Physician Practices is amultiple site organization consisting of ambulatory clinics and hospital sitesin [place], [place], [place] and [place]. This disclosure is being madepursuant to the Care Everywhere program and may not contain all information available regarding this patient. Last updated 18.[facility] Social History Tobacco Use Types Packs/Day Years [...] patient's age to complete this topic Insurance [facility]
--- OUTSIDE RECORDS SUMMARY | 2025-03-03 14:35 | XMS_ITS | Data Portability ---
Author Organization [facility] [employer], Main Office Address [address] [place] [address] Assessment No assessment recorded. Plan of Treatment Reminders Order Date Submit Date Provider Last Modified By Organization Details Last Modified Time Details Appointments None recorded. Lab CBC w/ auto diff [address] (Lab), [address] [place], [address], 5 11:46:21 CMP, serum or plasma [address] (Lab), [address] [place], [address], 5 11:46:22 lipid panel, serum [address] (Lab), [address] [place], [address], 5 11:46:22 TSH, serum or plasma [address] (Lab), [address] [place], [address], 5 11:46:22 CBC w/ auto diff 2023 024 [facility] (Lab), [address] [place], [address], 4 16:21:20 vitamin D, 25-hydroxy, total, serum 2023 024 [facility] (Lab), [address] [place], [address], 4 16:21:26 vitamin B12 + folate, serum or blood 2023 024 [facility] (Lab), [address] [place], [address], 4 16:21:15 TSH, serum or plasma [address] (Lab), [address] [place], [address], 4 09:26:22 T4, free, serum [address] (Lab), [address] [place], [address], 4 09:26:22 T3, free, serum or plasma 2023 024 [facility] (Lab), [address] [place], [address], 4 16:21:10 lipid panel, serum [address] (Lab), [address] [place], [address], 4 09:26:21 CMP, serum or plasma [address] (Lab), [address] [place], [address], 4 09:26:22 lipid panel, serum [email or web address] (Lab), [address] [place], [address], 3 08:24:37 CMP, serum or plasma 2022 023 [email or web address] n37 [facility] (Lab), [address] [place], [address], 3 08:24:37 Referral None recorded. Procedures None recorded. Surgeries None recorded. Imaging None recorded. Medication Orders esomeprazol e magnesium 40 mg capsule,del ayed release 2023 024 [email or web address] [id number] [address] [facility], [place], [place], [id number], 5 10:39:12 Patient TargetsNo targets recorded. Patient [...] ----- HIGH RISK: >240 >200 Not Available [facility] (Lab) [address] [place], [address], 04/20/2023 20:47:40 04/20/20 23 04/20/2023 LIPID PANEL triglyceride s 46 mg/dL 0-150 NIH DEANDRE NSUS REPOR T RECOM MENDA TION FOR TRIGL YCERI NARAYAN: ADULT CHILD LOW RISK: <150 ----- BODER LINE: 150-1 99 ----- HIGH RISK: >200 ----- Not Available [facility] (Lab) [address] [place], [address], 04/20/2023 20:47:40 04/20/20 23 04/20/2023 LIPID PANEL HDL cholesterol 65 mg/dL 40- Not Available [facility] (Lab) [address] [place], [address], 04/20/2023 20:47:40 04/20/20 23 04/20/2023 LIPID PANEL [...] WILL NOT BE REPOR GONZALO. Not Available [facility] (Lab) [address] [place], [address], 04/20/2023 20:47:40 04/20/20 23 04/20/2023 COMPR EHENS LJ METAB OLIC PANEL sodium 138 mmol/ L 137-14 5 Not Available [facility] (Lab) [address] [place], [address], 04/20/2023 20:47:50 04/20/20 23 04/20/2023 COMPR EHENS LJ METAB OLIC PANEL potassium 4.4 mmol/ L 3.5-5. 1 Not Available [facility] (Lab) [address] [place], [address], 04/20/2023 20:47:50 04/20/20 23 04/20/2023 COMPR EHENS LJ METAB OLIC PANEL chloride 102 mmol/ L 98-107 Not Available [facility] (Lab) [address] [place], [address], 04/20/2023 20:47:50 04/20/20 23 04/20/2023 COMPR EHENS LJ METAB OLIC PANEL carbon dioxide 28 mmol/ L 22-30 Not Available [facility] (Lab) [address] [place], [address], 04/20/2023 20:47:50 04/20/20 23 04/20/2023 COMPR EHENS LJ METAB OLIC PANEL anion gap 12.4 mmol/ L 14-22 low Not Available [facility] (Lab) [address] [place], [address], 04/20/2023 20:47:50 04/20/2004/20/2023 COMPR EHENS LJ METAB OLIC PANEL glucose 75 mg/dL 70-99 Not Available [facility] (Lab) [address] [place], [address], 04/20/2023 20:47:50 04/20/20 23 04/20/2023 COMPR EHENS LJ METAB OLIC PANEL BUN 12 mg/dL 8-19 Not Available [facility] (Lab) [address] [place], [address], 04/20/2023 20:47:50 04/20/20 23 04/20/2023 COMPR EHENS LJ METAB OLIC PANEL creatinine 0.69 mg/dL 0.66-1 .25 Not Available [facility] (Lab) [address] [place], [address], 04/20/2023 20:47:50 04/20/20 23 04/20/2023 COMPR EHENS LJ METAB OLIC PANEL GFR >60 Refer ence Range : Daisetta ge GFR Healt hy Adult : >60 [...] calcu lator is avail able on the [facility] websi te: [email or web address] :[email or web address] rg/pr ofess ional s/kdo qi/gf r_cal culat or Not Available [facility] (Lab) [address] [place], [address], 04/20/2023 20:47:50 04/20/20 23 04/20/2023 COMPR EHENS LJ METAB OLIC PANEL alkaline phosphatase 43 U/L 38-126 Not Available [facility] (Lab) [address] [place], [address], 04/20/2023 20:47:50 04/20/20 23 04/20/2023 COMPR EHENS LJ METAB OLIC PANEL alanine aminotransfe rase 25 U/L 0-35 Not Available [facility] (Lab) [address] [place], [address], 04/20/2023 20:47:50 04/20/20 23 04/20/2023 COMPR EHENS LJ METAB OLIC PANEL aspartate aminotransfe rase 33 U/L 15-37 Not Available [facility] (Lab) [address] [place], [address], 04/20/2023 20:47:50 04/20/20 23 04/20/2023 COMPR EHENS LJ METAB OLIC PANEL bilirubin, total 0.60 mg/dL 0.20-1 .30 Not Available [facility] (Lab) [address] [place], [address], 04/20/2023 20:47:50 04/20/20 23 04/20/2023 COMPR EHENS LJ METAB OLIC PANEL calcium 8.7 mg/dL 8.4-10 .2 Not Available [facility] (Lab) [address] [place], [address], 04/20/2023 20:47:50 04/20/20 23 04/20/2023 COMPR EHENS LJ METAB OLIC PANEL total protein 7.3 g/dL 6.3-8. 2 Not Available [facility] (Lab) [address] [place], [address], 04/20/2023 20:47:50 04/20/20 23 04/20/2023 COMPR EHENS LJ METAB OLIC PANEL albumin 4.3 g/dL 3.4-5. 0 Not Available [facility] (Lab) [address] [place], [address], 04/20/2023 20:47:50 04/20/20 23 04/20/2023 COMPR EHENS LJ METAB OLIC PANEL globulin 3.0 g/dL 2.6-4. 2 Not Available [facility] (Lab) [address] [place], [address], 04/20/2023 20:47:50 04/20/20 23 04/20/2023 COMPR EHENS LJ METAB OLIC PANEL A/G ratio 1.4 ratio 1.0-2. 0 Not Available [facility] (Lab) [address] [place], [address], 04/20/2023 20:47:50 09/23/20 22 09/23/2022 CT, neck, soft tissu e, w/o contr ast No observ ation record ed. [id number] [place] [address], [address], 11/23/2022 18:52:39 10/12/19 23 10/12/2022 , mamadou dawkins No observ ation record ed. [id number] [place] [address], [address], 11/23/2022 18:52:39 10/19/19 23 10/18/2022 CT, abdom en + pelvi s, w/wo contr ast No observ ation record ed. [id number] [facility] [address], [place], [address], 11/23/2022 18:52:39 06/02/20 23 05/31/2023 elect rocar diogr am, routi ne ECG, 12 leads min; inter preta tion and repor t (PROC ) No observ ation record ed. [email or web address] Not Available 2022 09:28:43 Result Notes None recorded. Problems Name Problem SNOMED Code Status Onset Date Resolution Date Notes Provider Name and Address Organization Details Recorded Time Pain in throat 968636619 Completed 202108/10/2022 Not Available [facility] 3 18:51:48 Abdominal pain 56264984 Active 2021 Not Available [facility] 3 18:51:49 Abdominal pain 50129529 Completed 202006/22/2022 Not Available [facility] 3 18:51:49 Right upper quadrant pain 812269257 Active 2022 Not Available [facility] 3 18:51:49 Hypothyroi dism 55789778 Active 2021 Not Available [facility] 3 18:51:49 Anxiety 67377272 Active 2021 Not Available [facility] 3 18:51:49 Hyperlipid emia 78192507 Active 2021 Not Available [facility] 3 18:51:49 Hemorrhoid s 43174656 Active 2021 Not Available [facility] 3 18:51:49 Paresthesi a of lower extremity 497571298 Active 2022 Caleb Wei MD [address] [facility], [facility] [address], [place], [address] , [place] [facility] [employer] [facility] 3 10:42:43 Menorrhagi a 479129259 Active 2023 Virgen Saldivar NP [address], [place], [address] , [facility] [employer] [facility] 4 14:35:19 Malaise and fatigue 272556672 Active 2023 Virgen Saldivar NP [address], [place], [address] , [facility] [employer] [facility] 4 14:36:24 Subclinica l hyperthyro idism 833259457 Active 2023 Susan Hightower LPN null, [facility] [employer] [facility] 4 12:21:17 Gastroesop hageal reflux disease 684391006 Active 2023 Caleb Wei MD [address], [address], [place], [address] , [facility] [employer] [facility] 4 13:09:33 Neck pain 87349883 Active 2023 Calbe Wei MD [address], [place], [address] , [facility] [employer] [facility] 4 13:13:51 Serum thyroid stimulatin g hormone level outside reference range 850866702 Active 2024 Monica Potter MA null, [facility] [employer] [facility] 5 12:37:20 Problem Notes None recorded. Procedures Surgical History Date Name Laterality Status Provider Name and Address Organization Details Recorded Time 01/08/20 20 section completed Not Available [facility] 09/2022 18:51:20 Appendectomy completed Not Available [facility] 11/23/2022 18:51:20 Imaging Results None recorded. Procedure [...] mL by intraderm al route. 11/[address] [facility]#4 [phone]- [phone] 8 Not Available Not Available [...] % 99 % 90 /min 97.8 [degF] 01014.4 5 g 140 mm[Hg] 90 mm[Hg] Not Available [facility] 3 18:51:26 Date Recorded Body height Body mass index (BMI) Body weight Body temperature Heart rate Oxygen saturation Oxygen saturation in Arterial blood by Pulse oximetry Systolic blood pressure Diastolic blood pressure Provider Name and Address Organization Details Last Updated DateTime 3 162.56 cm 22.5 kg/m2 79728.6 g 97.2 [degF] 73 /min 99 % 99 % 118 mm[Hg] 80 mm[Hg] Daina Hayes RN [facility] [employer] [facility] 3 10:23:48 Date Recorded Body weight Body mass index (BMI) Body height Body temperature Heart rate Oxygen saturation Oxygen saturation in Arterial blood by Pulse oximetry Systolic blood pressure Diastolic blood pressure Provider Name and Address Organization Details Last Updated DateTime 4 49796.0 3 g 21.9 kg/m2 162.56 cm 97.6 [degF] 73 /min 97 % 97 % 122 mm[Hg] 80 mm[Hg] AQUILES Friend [facility] [employer] [facility] 4 14:16:17 Date Recorded Body height Body mass index (BMI) Body weight Body temperature Heart rate Respiratory rate Oxygen saturation Oxygen saturation in Arterial blood by Pulse oximetry Systolic blood pressure Diastolic blood pressure Provider Name and Address Organization Details Last Updated DateTime 4 162.56 cm 21.8 kg/m2 94272.2 3 g 97.7 [degF] 76 /min 16 /min 99 % 99 % 112 mm[Hg] 58 mm[Hg] Monica Potter MA [facility] [employer] 4 12:37:54 Date Recorded Body weight Body mass index (BMI) Body height Body temperature Heart rate Oxygen saturation Oxygen saturation in Arterial blood by Pulse oximetry Systolic blood pressure Diastolic blood pressure Provider Name and Address Organization Details Last Updated DateTime 5 16720.9 7 g 23.2 kg/m2 162.56 cm 97.1 [degF] 70 /min 99 % 99 % 124 mm[Hg] 64 mm[Hg] Carolina collins [employer] [place] [facility] [employer] 5 10:38:55 Social History Question Answer Notes LastModified by [employer] Details LastModified Time Tobacco Smoking Status Never Smoker Not Available [facility] 11/23/2022 18:51:19 What Is Your Level Of Caffeine Consumption? None [id number] Information not available 11/23/2022 How Much Tobacco Do You Chew? None [id number] Information not available 11/23/2022 What Type Of Diet Are You Following? REGULAR [id number] Information not available 11/23/2022 Which Illicit Or Recreational Drugs Have You Used? None [id number] Information not available 11/23/2022 How Much Tobacco Do You Smoke? No [id number] Information not available 11/23/2022 Sex: Unknown Functional Status Question Answer Note LastModified by [employer] Details LastModified Time What is your level of alcohol consumption? Occasional [id number] Information not available 11/23/2022 Do you or have you ever used smokeless tobacco? Never used smokeless tobacco [id number] Information not available 11/23/2022 Do you or have you ever used e-cigarettes or vape? Never used electronic cigarettes [id number] Information not available 11/23/2022 What is your exercise level? Moderate [id number] Information not available 11/23/2022 Mental Status None recorded. Family History Relationship Description Onset Age of this Age Resolved Age Notes LastModified by Organization Details LastModified Time Maternal Grandmother Diabetes mellitus [id number] Not available 11/23/2022 18:51:21 Medical History No medical history recorded. Gynecological HistoryNo gynecological history recorded. Obstetrics History GPAL:G 0 P 0 0 0 0 Immunizations Vaccine Type Date Status Note Provider Nam e and Address Organization Details Recorded Time COVID-19, mRNA, LNP-S, PF, 100 mcg/0.5mL dose or 50 mcg/0.25mL dose 1 completed Not Available [facility] 11/23/2022 18:52:36 COVID-19, mRNA, LNP-S, PF, 100 mcg/0.5mL dose or 50 mcg/0.25mL dose 1 completed Not Available [facility] 11/23/2022 18:52:36 Tdap 0 completed Not Available [facility] 11/23/2022 18:52:36 Influenza, split virus, quadrivalent, preservative 9 completed Not Available [facility] 11/23/2022 18:52:36 TST-PPD intradermal 7 completed Not Available [facility] 11/23/2022 18:52:37 Past Encounters Encounter ID Performer Location Encounter Start Date Encounter Closed Date Diagnosis/Indication Diagnosis SNOMED-CT Code Diagnosis ICD10 Code Diagnosis Note [id number] Caleb Wei MD [facility] [address] [address] 12/02/2020 00:00:00 12/02/2020 14:51:50 [id number] Caleb Wei MD [facility] [address] [address] 03/02/2022 00:00:00 03/02/2022 13:31:03 [id number] MD [facility] [address] [address] 06/22/2022 00:00:00 06/22/2022 15:28:50 [id number] MD [facility] [address] [address] 06/27/2022 00:00:00 06/27/2022 11:58:11 [id number] MD [facility] [address] [address] 07/13/2022 00:00:00 07/13/2022 16:04:42 [id number] Caleb Wei MD [facility] Internal [address] [place] [address] 09/12/2022 00:00:00 09/12/2022 16:15:48 [id number] Caleb Wei MD [facility] Internal [place] [id number] [facility] [place] [address] 10/10/2022 00:00:00 10/10/2022 12:35:21 [id number] Calbe Wei MD [facility] Internal [address] [place] [address] 12/29/2022 10:05:34 12/29/2022 10:57:12 Anxiety 09928008 F41.9 much better Paresthesi a of lower extremity 181249057 R20.2 duloxetine discussed, wants to wait Hyperlipidemia 78305494 E78.5 [id number] Caleb Wei MD [facility] Internal Med [address] [place] [address] 01/12/2024 14:09:18 01/12/2024 14:42:34 Hyperlipidemia 70464065 E78.5 Hypothyroidism 04642107 E03.9 Menorrhagia 684280426 N9 2.0 Malaise and fatigue 2717 [address]58[address] R53.81 [id number] Caleb Wei MD [facility] Internal Med [address] [place] [address] 02/22/2024 12:29:52 02/22/2024 13:10:40 Anxiety 60538622 F41.9 better Gastroesop hageal reflux disease 889048740 K21.9 try meds for a month and let me know if not better Neck pain 21435002 M54.2 muscular,s tretching, exercises [id number] Caleb Wei MD [facility] [place] [address] [facility] [place] [address] 02/24/2025 10:34:49 02/24/2025 11:13:22 Anxiety 38931535 F41.9 under control General ex amination of patient 892303999 Z00.00 Mammogram- NEVERFLU- Not always Thyroid di sorder screening 212349317 Z13.29 Health Concerns Section Related Observation LastModified by Organization Detai ls LastModified Time None Recorded Concern Status LastModified by Organization Details LastModified Time None Recorded Advance Directives Directive None Recorded Payers Encounter Date Sequence Insurance Name Policy Number Policy Cueva Covered Member ID Cueva Member ID Guarantor Name 12/29/2022 1 [facility] [id number] Madalan E Hoguet [id number] Madalan Hoguet 01/12/2024 1 [facility] [id number] Madalan E Hoguet [id number] Madalan Hoguet 02/22/2024 1 [facility] [id number] Madalan E Hoguet [id number] Madalan Hoguet 02/24/2025 1 [facility] [id number] Madalan E Hoguet [id number] [facility] Notes Date Note Type Note Provider [...] nausea, no vomitingno diarrhea Caleb Wei MD [address], [facility] [address], [place], [address], [facility] [employer] 12/29/2022 10:45:34 01/12/2024 text/html She is here for an annual check up, has not been seen in a year, would like check up and update labs. Virgen Saldivar NP [address], [address], [place], [address], [employer] 01/12/2024 14:39:34 02/22/2024 text/html Has had a [...] 20 mg qd Caleb Wei MD [address], [address], [place], [address], [employer] 02/22/2024 13:14:57 02/24/2025 text/html Pt is here today for her yearly exam.PT IS NOT FASTING ( [facility] )Needs labs Anxiety- On meds and helping, has seen aaron ( [place] [facility] psychiat[facility]- Dr. Eric Mcrae), symptoms are much better, mood is stable, sleeps fine. 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 Has tried higher dose, could not tolerate due to drowsiness.Meds- Escitalopram 10 mg qd Caleb Wei MD [address], [address], [place], [address], [employer] 02/24/2025 11:12:06 OBGyn Episode No OBEpisode recorded.
--- OUTSIDE RECORDS SUMMARY | 2025-03-03 14:35 | XMS_ITS | Encounter Summary ---
Author Organization [facility] Address [address] [place] [address] Care Team Providers Care Model And Mold Maker Name Role Phone Boone Bellamy MD Primary Care Provider [phone] Encounter Details Date Type Department Care Team (Late st Contact Info) Description 02/06/2020 Lab Requisition [facility] [address] [facility], [facility] [place] [address] Ginette Davis MD [address] [facility] [address] [place] [address] Social History Tobacco Use Types Packs/Day Years [...] AM CDT) Case Report Dermatopathology Report Case: [id number] Authorizing Provider: Ginette Davis MD Collected: 02/05/2020 12:00 AM Ordering Location: [facility] Received: 02/06/2020 10:25 AM Pathologist: Araseli Fraire MD Specimens: A) - Skin, central chest B) - Skin, central abd 0 12:23 PM CDT DERMATOPATHOLOGY LABORATORY Addendum 1 At the request of the diagnosing physician, technical component for [place]/Melan A was performed on specimen B at [facility]. 0 12:23 PM CDT DERMATOPATHOLOGY LABORATORY Addendum electronically signed by Araseli Fraire MD on 02/10/2020 at 1223 CDT Clinical History A-B: R/O nevus, irregular border, irregular color. 0 12:23 PM CDT DERMATOPATHOLOGY LABORATORY Gross Description Specimen A: Received is one formalin filled container labeled with the patient's name and designated central chest. The specimen consists of a shave measuring [id number]. Jar 0. Specimen B: Received is one formalin filled container labeled with the patient's name and designated central abd. The specimen consists of a shave measuring 2e8w8na. Jar 0. [facility] performed the technical component only. [...] characteristic determined by the Dermatopathology Laboratory at [facility], directed by Dr. Krista Kern. These tests [...] DERABLES Edited Result - Final DERMATOPATHOLOGY LABORATORY [facility] - Department of Dermatology Manager Of Information Center/[place] [address], [facility] [phone] documented in this encounter Visit Diagnoses Not on filedocumented in this encounter Care Teams Model And Mold Maker Relationship Specialty Start Date End Date Boone Bellamy MD [address] [facility] [address] [place] [address] PCP - General 02/05/20 01/07/25 documented as of this encounter
--- OUTSIDE RECORDS SUMMARY | 2025-03-03 14:36 | XMS_ITS | Data Portability ---
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 Patient will come back in a year unless there are new symptoms. Not available 06/07/2022 10:25:07 07/03/2023 07/03/2023 Annual gynecological exam performed. Patient will come back in a year unless there are new symptoms. Not available 07/03/2023 09:47:34 07/08/2024 07/08/2024 Annual gynecological exam performed. Patient will come back in a year unless there are new symptoms. [email or web address] Not available 07/08/2024 09:50:05 Plan of Treatment Reminders Order Date Submit Date Provider Last Modified By Organization Details Last Modified Time Details Appointments None recorded. Lab urinalysis, dipstick 2023 024 [email or web address], [address], [place], [address], 17:48:46 culture, urine 2023 024 [facility] (Lab), [address], [place], [address], 4 04:36:02 unlisted lab - women's health swab, FARSHAD 2023 024 [facility] (Lab), [address], [place], [address], 4 04:36:01 CBC w/ auto diff 2023 024 [facility] (Lab), [address], [place], [address], 4 05:59:08 CMP, serum or plasma 2023 024 [facility] (Lab), [address], [place], [address], 4 05:59:09 lipid panel, blood 2023 024 [facility] (Lab), [address], [place], [address], 4 05:59:09 TSH, serum or plasma 2023 024 [facility] (Lab), [address], [place], [address], 4 05:59:09 25-hydroxyv itamin D2 + 25-hydroxyv itamin D3, QN, serum or plasma 2023 024 [facility] (Lab), [address], [place], [address], 4 05:59:09 CBC w/ auto diff 2021 022 [facility] (Lab), [address], [place], [address], 2 06:48:10 CMP, serum or plasma 2021 022 [facility] (Lab), [address], [place], [address], 2 06:48:11 lipid panel, blood [id number] [facility] (Lab), [address], [place], [address], 2 06:48:11 TSH, serum or plasma 2021 [facility] (Lab), [address], [place], [address], 2 06:48:12 vitamin D, 25-hydroxy, total, serum 2021 [facility] (Lab), [address], [place], [address], 2 06:48:12 Referral None recorded. Procedures None recorded. Surgeries None recorded. Imaging None recorded. Medication Orders fluconazole 150 mg tablet 2023 [facility][id number], [address], [place], [id number], 4 17:52:59 triamcinolo ne acetonide 0.1 % topical ointment 2023 [facility] #[id number], [address], [place], [id number], 4 17:52:58 Raegan 0.35 mg tablet 2021 [facility] #[id number], [address], [place], [id number], 3 09:54:26 Patient TargetsNo targets recorded. Patient InstructionsNo instructions recorded. Reason for Referral None Reported. Results Created Date Observation Date Name Description Value Unit Range Abnormal Flag Note LastModifiedBy Organization Detail LastModifiedTime 06/07/20 22 06/07/2022 CBC W/DIF F WBC 7.4 10'3/ uL 3.6-10 .2 Not Available [facility] [address] [place], [address], 06/08/2022 06:48:10 06/07/20 22 06/07/2022 CBC W/DIF F RBC 4.64 10'6/ uL (based on docume nted legal sex) 4.10-5 .30 Not Available [facility] [place], [address], 06/08/2022 06:48:10 06/07/20 22 06/07/2022 CBC W/DIF F HGB 14.6 g/dL (based on docume nted legal sex) 11.9-1 5.8 Not Available [facility] [place], [address], 06/08/2022 06:48:10 06/07/20 22 06/07/2022 CBC W/DIF F HCT 44.3 % (based on docume nted legal sex) 37.4-4 8.3 Not Available [facility] [place] [place], [address], 06/08/2022 06:48:10 06/07/20 22 06/07/2022 CBC W/DIF F MCV 95.5 fL 82.0-9 9.0 Not Available [facility] [place] [place], [address], 06/08/2022 06:48:10 06/07/20 22 06/07/2022 CBC W/DIF F MCH 31.5 pg 27.0-3 3.0 Not Available [facility] [place] [place], [address], 06/08/2022 06:48:10 06/07/20 22 06/07/2022 CBC W/DIF F MCHC 33.0 g/dL 32.0-3 6.0 Not Available [facility] [place], [address], 06/08/2022 06:48:10 06/07/2006/07/2022 CBC W/DIF F RDW 13.4 % 11.0-1 5.0 Not Available [facility] [address], [place], [address], 06/08/2022 06:48:10 06/07/2006/07/2022 CBC W/DIF F plt 269 10'3/ uL 150-45 0 Not Available [facility] [place] [place], [address], 06/08/2022 06:48:10 06/07/2006/07/2022 CBC W/DIF F MPV 10.1 fL 9.8-12 .7 Not Available [facility] [place] [place], [address], 06/08/2022 06:48:10 06/07/2006/07/2022 CBC W/DIF F NRBC's 0.0 % 0 Not Available [facility] [place] [place], [address], 06/08/2022 06:48:10 06/07/2006/07/2022 CBC W/DIF F absolute NRBCs 0.0 10'3/ uL 0 Not Available [facility] [place] [place], [address], 06/08/2022 06:48:10 06/07/2006/07/2022 CBC W/DIF F neutrophils 53.9 % 37.0-7 2.0 Not Available [facility] [place] [place], [address], 06/08/2022 06:48:10 06/07/20 22 06/07/2022 CBC W/DIF F lymphocytes 37.2 % 16.0-4 8.0 Not Available [facility] Infect[facility] Disease [address] [place] [address], [place], [address], 06/08/2022 06:48:10 06/07/20 22 06/07/2022 CBC W/DIF F monocytes 6.5 % 4.0-14 .0 Not Available [facility] [address] [place] [address], [address], 06/08/2022 06:48:10 06/07/20 22 06/07/2022 CBC W/DIF F eosinophils 1.6 % 0.0-9. 0 Not Available [facility] [address] [place] [address], [address], 06/08/2022 06:48:10 06/07/20 22 06/07/2022 CBC W/DIF F basophils 0.7 % 0.0-2. 0 Not Available [facility] [address] [place] [address], [address], 06/08/2022 06:48:10 06/07/20 22 06/07/2022 CBC W/DIF F immature granulocytes 0.1 % no define d refere nce range Not Available [facility] [address] [place] [address], [address], 06/08/2022 06:48:10 06/07/20 22 06/07/2022 CBC W/DIF F absolute neutrophils 4.0 10'3/ uL 1.1-6. 0 Not Available [facility] [address] [place] [address], [address], 06/08/2022 06:48:10 06/07/20 22 06/07/2022 CBC W/DIF F absolute lymphocytes 2.8 10'3/ uL 0.7-3. 4 Not Available [facility] [address] [place] [address], [address], 06/08/2022 06:48:10 06/07/20 22 06/07/2022 CBC W/DIF F absolute monocytes 0.5 10'3/ uL 0.3-1. 0 Not Available [facility] [address] [place] [address], [address], 06/08/2022 06:48:10 06/07/20 22 06/07/2022 CBC W/DIF F absolute eosinophils 0.1 10'3/ uL 0.0-0. 6 Not Available [facility] [address] [place] [address], [address], 06/08/2022 06:48:10 06/07/20 22 06/07/2022 CBC W/DIF F absolute basophils 0.1 10'3/ uL 0.0-0. 1 Not Available [facility] [address] [place] [address], [address], 06/08/2022 06:48:10 06/07/20 22 06/07/2022 CBC W/DIF F absolute immature granulocytes 0.0 10'3/ uL 0.00-0 .10 2021 4:56 AM: P indic ates parti al resul ts on a panel have been relea sed. Addit ional resul ts will follo w. 2021 4:56 AM: This resul t has been final verif ied. No addit ional or crowell ed resul ts are expec abhishek. Not Available [address], [address], 06/08/2022 06:48:10 06/07/20 22 06/07/2022 LIPID PANEL ,AMA (LDL- CALC) total cholesterol 206 mg/dL 0-199 high Not Available [facility] [address] [place] [address], [address], 06/08/2022 06:48:11 06/07/2006/07/2022 LIPID PANEL ,AMA (LDL- CALC) triglyceride s 87 mg/dL 0.00-1 50.00 NCEP Refer ence Value s for Trigl yceri karena: Nelda l: <150 mg/dL Borde rline High: 150 - 199 mg/dL High: 200 - 499 mg/dL Very High: >/= 500 mg/dL Not Available [facility] [address] [place] [address], [address], 06/08/2022 06:48:11 06/07/2006/07/2022 LIPID PANEL ,AMA (LDL- CALC) HDL cholesterol 76 mg/dL >40 Not Available [facility] [address], [address], 06/08/2022 06:48:11 06/07/20 22 06/07/2022 LIPID PANEL ,AMA (LDL- CALC) LDL cholesterol 113 mg/dL 0-99 high Cutof f value s recom gela d by the Odilon nal Delmy stero l Educa tion Progr am: PHILIP ABLE: Delmy stero l <200 mg/dL LDL <100 mg/dL BORDE RLINE : Delmy stero l 200-2 39 mg/dL LDL 101-1 59 mg/dL HIGHE R RISK: Delmy stero l >240 mg/dL LDL >160 mg/dL , HDL <40 mg/dL Not Available [facility] Infectious [address], [address], 06/08/2022 06:48:11 06/07/2006/07/2022 LIPID PANEL ,AMA (LDL- CALC) non-HDL cholesterol 130 mg/dL no refere nce range A reaso nable goal for non-H DL delmy stero l is one that is 30 mg/dL highe r than the LDL delmy stero l goal. Not Available [facility] [place], [address], 06/08/2022 06:48:11 06/07/20 22 06/07/2022 LIPID PANEL ,AMA (LDL- CALC) chol/HDL ratio 2.7 . 0.0-5. 0 Not Available [facility] Disease [address] [place], [place] [address], [place], [address], 06/08/2022 06:48:11 06/07/20 22 06/07/2022 CMP(C OMPRE HENSI VE METAB OLIC PANEL ) sodium 139 mmol/ L 133-14 6 Not Available [facility] Disease [address] [place], [place] [address], [place], [address], 06/08/2022 06:48:11 06/07/20 22 06/07/2022 CMP(C OMPRE HENSI VE METAB OLIC PANEL ) potassium 4.5 mmol/ L 3.5-5. 1 Not Available [address] [place], [address], 06/08/2022 06:48:11 06/07/20 22 06/07/2022 CMP(C OMPRE HENSI VE METAB OLIC PANEL ) chloride 104 mmol/ L 98-107 Not Available [facility] Disease [address] [place], [place] [address], [place], [address], 06/08/2022 06:48:11 06/07/20 22 06/07/2022 CMP(C OMPRE HENSI VE METAB OLIC PANEL ) carbon dioxide 26 mmol/ L 21-31 Not Available [facility] Disease [address] [place], [place] [address], [place], [address], 06/08/2022 06:48:11 06/07/20 22 06/07/2022 CMP(C OMPRE HENSI VE METAB OLIC PANEL ) anion gap 9 mmol/ L 4-13 Not Available [facility], [address], 06/08/2022 06:48:11 06/07/20 22 06/07/2022 CMP(C OMPRE HENSI VE METAB OLIC PANEL ) blood urea nitrogen 12 mg/dL 7-25 Not Available [facility], [address], 06/08/2022 06:48:11 06/07/20 22 06/07/2022 CMP(C OMPRE HENSI VE METAB OLIC PANEL ) creatinine 0.78 mg/dL 0.60-1 .30 Not Available [facility] [address] [place] [address], [place], [address], 06/08/2022 06:48:11 06/07/2006/07/2022 CMP(C OMPRE HENSI VE METAB OLIC PANEL ) egfrcr (CKD-epi 2020) >90 mL/mi n/1.7 3_m2 >=60 Not Available [facility] [place], [address], 06/08/2022 06:48:11 06/07/20 22 06/07/2022 CMP(C OMPRE HENSI VE METAB OLIC PANEL ) calcium 9.7 mg/dL 8.3-10 .5 Not Available [facility] [address] [place], [place] [address], [place], [address], 06/08/2022 06:48:11 06/07/2006/07/2022 CMP(C OMPRE HENSI VE METAB OLIC PANEL ) glucose 80 mg/dL 70-100 Not Available [facility] [address] [place], [place] [address], [place], [address], 06/08/2022 06:48:11 06/07/2006/07/2022 CMP(C OMPRE HENSI VE METAB OLIC PANEL ) protein, total 7.4 g/dL 6.4-8. 3 Not Available [facility] [address] [place], [place] [address], [place], [address], 06/08/2022 06:48:11 06/07/20 22 06/07/2022 CMP(C OMPRE HENSI VE METAB OLIC PANEL ) albumin 4.6 g/dL 3.5-5. 0 Not Available [facility] Disease [address] [place], [place] [address], [place], [address], 06/08/2022 06:48:11 06/07/2006/07/2022 CMP(C OMPRE HENSI VE METAB OLIC PANEL ) ALT 26 units /L 9-43 Not Available [facility] Disease [address] [place] [address], [address], 06/08/2022 06:48:11 06/07/2006/07/2022 CMP(C OMPRE HENSI VE METAB OLIC PANEL ) alkaline phosphatase 60 units /L 34-104 Not Available [facility] [address] [place], [place] [address], [place], [address], 06/08/2022 06:48:11 06/07/2006/07/2022 CMP(C OMPRE HENSI VE METAB OLIC PANEL ) AST 23 units /L 13-39 Not Available [facility] [address] [place], [place] [address], [place], [address], 06/08/2022 06:48:11 06/07/2006/07/2022 CMP(C OMPRE HENSI VE METAB OLIC PANEL ) bilirubin, total 0.5 mg/dL 0.2-1. 2 Not Available [facility] Disease [address] [place], [place] [address], [place], [address], 06/08/2022 06:48:11 06/07/20 22 06/07/2022 TSH, REFLE X FREE T4 TSH 2.11 uIU/m L 0.30-5 .33 Not Available [facility] [address] [place] [address], [address], 06/08/2022 06:48:12 06/07/20 22 06/07/2022 VITAM IN D, 25-OH (TOTA L D2/D3 ) vitamin D, 25-hydroxy, total 34.3 NG/mL 30.0-1 00.0 [place] [address] of Defic iency : <20 ng/mL [facility]ge stive of Insuf ficie ncy: 20-29 ng/mL Sugge stive of Suffi cienc y: 30-10 0 ng/mL Sugge stive of Toxic ity: >150 ng/mL Not Available [facility] [address] [place] [address], [address], 06/08/2022 06:48:12 06/07/20 22 06/07/2022 IMAGE GUIDE D PAP, REFLE X HPV IF ASCUS ONLY image guided Pap, reflex HPV ASCUS only SEE RESULT S BELOW CASE REPOR T: Cytol ogy Gynec ologi sarah Repor t Case: [id number] Autho jo ann g Provi jorge: Leandro Begum MD Colle cted: 06/07 1337 Order ing Locat ion: [place] Patho logy Recei sandra: 06/08 0108 First Scree n: Uvaldo [place] CT Speci men: Scree mannie Pap - Image d, Cervi x STATE MENT OF ADEQU ACY: Satis facto ry for evalu ation Trans forma tion zone compo nent prese nt Parti ally obscu ring infla mmati on prese nt. FINAL DIAGN OSIS: Negat carmina for Intra epith elial Lesio n or Gareth gage (NIL) . Elect jennifer ruth sindi d by Uvaldo [place] CT on 2021 at 8:27 AM ----- ----- ----- ----- ----- ----- ----- ----- ----- ----- ----- ----- ----- ----- ----- ----- ----- ---- COMME NT: Note: Slide scree ryland blanquita lly due to rejec tion by the Thinp rep Imagi ng Syste m. CLINI SARAH INFOR MATIO N: Menst rual Statu s: LMP (if appli cable ): Clini sarah Histo ry/Pr eviou s Pap: Type of Neopl janis (if appli cable ): Signi fican t Clini sarah Findi ngs: Other Histo ry: Hormo matt (if appli cable ): PAP EDUCA CANDICE L NOTE: The Pap Test is a scree mannie test with an inher ent false negat carmina rate. Liqui d-bas ed sampl ing may decre ase, but will not elimi alberto, false negat carmina resul ts. A negat carmina resul t does not precl ude the prese nce and/o r devel opmen t of disea se, since the prese nce of abnor mal cells in the sampl e depen ds on the locat ion of the lesio n and sampl ing techn ique. Bob nued regul ar scree mannie is the best metho d of cance r preve ntion . If repor abhishek cytol ogic findi ng do not corre late with physi sarah and/o r histo rical findi ngs, furth er inves tigat ion is recom gela d, as clini otoniel hernandez nted. Not Available [facility] [address], [place], [address], 06/13/2022 09:29:58 06/15/2006/15/2022 LIPID PANEL ,AMA (LDL- CALC) total cholesterol 212 mg/dL 0-199 high Not Available [facility] [address] [place], [address], 06/16/2022 03:47:18 06/15/20 22 06/15/2022 LIPID PANEL ,AMA (LDL- CALC) triglyceride s 65 mg/dL 0.00-1 50.00 NCEP Refer ence Value s for Trigl yceri karena: Nelda l: <150 mg/dL Borde rline High: 150 - 199 mg/dL High: 200 - 499 mg/dL Very High: >/= 500 mg/dL Not Available [facility] Infectious [address], [address], 06/16/2022 03:47:18 06/15/20 22 06/15/2022 LIPID PANEL ,AMA (LDL- CALC) HDL cholesterol 72 mg/dL >40 Not Available [address], [address], 06/16/2022 03:47:18 06/15/20 22 06/15/2022 LIPID PANEL ,AMA (LDL- CALC) LDL cholesterol 127 mg/dL 0-99 high Cutof f value s recom gela d by the Natio nal Delmy stero l Educa tion Progr am: PHILIP ABLE: Delmy stero l <200 mg/dL LDL <100 mg/dL BORDE RLINE : Delmy stero l 200-2 39 mg/dL LDL 101-1 59 mg/dL HIGHE R RISK: Delmy stero l >240 mg/dL LDL >160 mg/dL , HDL <40 mg/dL Not Available [facility] [address], [address], 06/16/2022 03:47:18 06/15/20 22 06/15/2022 LIPID PANEL ,AMA (LDL- CALC) non-HDL cholesterol 140 mg/dL no refere nce range A reaso nable goal for non-H DL delmy stero l is one that is 30 mg/dL highe r than the LDL delmy stero l goal. Not Available [facility] [address], [address], 06/16/2022 03:47:18 06/15/20 22 06/15/2022 LIPID PANEL ,AMA (LDL- CALC) chol/HDL ratio 2.9 . 0.0-5. 0 Not Available [facility] [address], [place], [address], 06/16/2022 03:47:18 07/03/20 23 07/03/2023 IMAGE GUIDE D PAP AND HPV REGAR DLESS image guided Pap, HPV regardless of Pap result SEE RESULT S BELOW CASE REPOR T: Cytol ogy Gynec ologi sarah Repor t Case: [id number] Autho jo ann g Provi jorge: Leandro Begum MD Colle cted: 07/03 1510 Order ing Locat ion: [place] Patho logy Recei sandra: 07/04 0210 First Scree n: Mary Anne Kline ret, CT Rescr een: Roxana koo, Celestino mcgee, CT Speci men: Scree mannie Pap - Image d, Cervi x STATE MENT OF ADEQU ACY: Satis facto ry for evalu ation Trans forma tion zone compo nent absen t The absen ce of an endoc ervic al compo nent was confi rmed by an addit ional scree ner. FINAL DIAGN OSIS: Negat carmina for Intra epith elial Magan burton or Gareth gage (NIL) . Elect jennifer delong d by Roxana koo, Celestino mcgee, CT on 07/05 at 7:53 PM ----- ----- ----- ----- ----- ----- ----- ----- ----- ----- ----- ----- ----- ----- ----- ----- ----- ---- HPV RESUL TS: HPV mRNA E6/E7 : No HPV mRNA Detec abhishek NOTE: This high risk HPV mRNA assay detec ts fourt een high- risk HPV types (16, 18, 31, 33, 35, 39, 45, 51, 52, 56, 58, 59, 66, 68) witho ut diffe renti ation . COMME NT: This speci men was revie wed by a Cytot echno logis t and/o r Patho logis t (as indic ated in this repor t) after evalu ation using the Thinp rep Imagi ng Syste m. CLINI SARAH INFOR MATIO N: Menst rual Statu s: LMP (if appli cable ): Clini sarah Histo ry/Pr eviou s Pap: Type of Neopl janis (if appli cable ): Signi fican t Clini sarah Findi ngs: Other Histo ry: Hormo matt (if appli cable ): PAP EDUCA CANDICE L NOTE: The Pap Test is a scree mannie test with an inher ent false negat carmina rate. Liqui d-bas ed sampl ing may decre ase, but will not elimi alberto, false negat carmina resul ts. A negat carmina resul t does not precl ude the prese nce and/o r devel opmen t of disea se, since the prese nce of abnor mal cells in the sampl e depen ds on the locat ion of the lesio n and sampl ing techn ique. Bob nued regul ar scree mannie is the best metho d of cance r preve ntion . If repor abhishek cytol ogic findi ng do not corre late with physi sarah and/o r histo rical findi ngs, furth er inves tigat ion is recom gela d, as clini otoniel hernandez nted. Not Available [facility] (Lab) [address], [place], [address], 07/05/2023 20:57:24 07/08/20 24 07/08/2024 CBC W/DIF F WBC 5.8 10'3/ uL 3.5-10 .5 Not Available [facility] (Lab) [address], [place], [address], 07/09/2024 05:59:07 07/08/20 24 07/08/2024 CBC W/DIF F RBC 4.56 10'6/ uL (based on docume nted legal sex) 3.80-5 .20 Not Available [facility] (Lab) [address], [place], [address], 07/09/2024 05:59:07 07/08/20 24 07/08/2024 CBC W/DIF F HGB 14.9 g/dL (based on docume nted legal sex) 11.6-1 5.4 Not Available [facility] (Lab) [address], [place], [address], 07/09/2024 05:59:07 07/08/20 24 07/08/2024 CBC W/DIF F HCT 45.5 % (based on docume nted legal sex) 34.0-4 5.0 high Not Available [facility] (Lab) [address], [place], [address], 07/09/2024 05:59:07 07/08/20 24 07/08/2024 CBC W/DIF F MCV 99.8 fL 80.0-9 9.0 high Not Available [facility] (Lab) [address], [place], [address], 07/09/2024 05:59:07 07/08/20 24 07/08/2024 CBC W/DIF F MCH 32.7 pg 27.0-3 4.0 Not Available [facility] (Lab) [address], [place], [address], 07/09/2024 05:59:07 07/08/20 24 07/08/2024 CBC W/DIF F MCHC 32.7 g/dL 32.0-3 5.5 Not Available [facility] (Lab) [address] [place], [address], 07/09/2024 05:59:07 07/08/20 24 07/08/2024 CBC W/DIF F RDW 12.3 % 11.0-1 5.0 Not Available [facility] (Lab) [address], [place], [address], 07/09/2024 05:59:07 07/08/20 24 07/08/2024 CBC W/DIF F plt 274 10'3/ uL 150-40 0 Not Available [facility] (Lab) [address], [place], [address], 07/09/2024 05:59:07 07/08/20 24 07/08/2024 CBC W/DIF F MPV 10.5 fL 8.8-12 .1 Not Available [facility] (Lab) [address], [place], [address], 07/09/2024 05:59:07 07/08/20 24 07/08/2024 CBC W/DIF F NRBC's 0.0 % 0.0 Not Available [facility] (Lab) [address], [place], [address], 07/09/2024 05:59:07 07/08/20 24 07/08/2024 CBC W/DIF F absolute NRBCs 0.0 10'3/ uL no refere nce range establ ished Not Available [facility] (Lab) [address], [place], [address], 07/09/2024 05:59:07 07/08/20 24 07/08/2024 CBC W/DIF F neutrophils 52.1 % 34.0-7 3.0 Not Available [facility] (Lab) [address], [place], [address], 07/09/2024 05:59:07 07/08/20 24 07/08/2024 CBC W/DIF F lymphocytes 38.0 % 15.0-5 0.0 Not Available [facility] (Lab) [address], [place], [address], 07/09/2024 05:59:07 07/08/20 24 07/08/2024 CBC W/DIF F monocytes 7.6 % 1.0-15 .0 Not Available [facility] (Lab) [address], [place], [address], 07/09/2024 05:59:07 07/08/20 24 07/08/2024 CBC W/DIF F eosinophils 1.4 % 0.0-8. 0 Not Available [facility] (Lab) [address] [facility], [place], [address], 07/09/2024 05:59:07 07/08/20 24 07/08/2024 CBC W/DIF F basophils 0.7 % 0.0-2. 0 Not Available [facility] (Lab) [address] [facility], [place], [address], 07/09/2024 05:59:07 07/08/20 24 07/08/2024 CBC W/DIF F immature granulocytes 0.2 % no define d refere nce range Not Available [facility] (Lab) [address] [facility], [place], [address], 07/09/2024 05:59:07 07/08/20 24 07/08/2024 CBC W/DIF F absolute neutrophils 3.0 10'3/ uL 1.5-8. 0 Not Available [facility] (Lab) [address] [facility], [place], [address], 07/09/2024 05:59:07 07/08/20 24 07/08/2024 CBC W/DIF F absolute lymphocytes 2.2 10'3/ uL 1.0-4. 0 Not Available [facility] (Lab) [address] [place], [address], 07/09/2024 05:59:07 07/08/20 24 07/08/2024 CBC W/DIF F absolute monocytes 0.4 10'3/ uL 0.2-1. 0 Not Available [facility] (Lab) [address] [facility], [place], [address], 07/09/2024 05:59:07 07/08/20 24 07/08/2024 CBC W/DIF F absolute eosinophils 0.1 10'3/ uL 0.0-0. 6 Not Available [facility] (Lab) [address] [facility], [place], [place], [address], 07/09/2024 05:59:07 07/08/20 24 07/08/2024 CBC W/DIF F absolute basophils 0.0 10'3/ uL 0.0-0. 3 Not Available [facility] (Lab) [address], [place], [address], 07/09/2024 05:59:07 07/08/20 24 07/08/2024 CBC W/DIF F absolute immature granulocytes 0.0 10'3/ uL 0.00-0 .10 07/09 4:12 AM: P indic ates parti al resul ts on a panel have been relea sed. Addit ional resul ts will follo w. 07/09 4:12 AM: This resul t has been final verif ied. No addit ional or crowell ed resul ts are expec abhishek. Not Available [facility] (Lab) [address], [place], [address], 07/09/2024 05:59:07 07/08/20 24 07/08/2024 LIPID PANEL ,AMA (LDL- CALC) total cholesterol 187 mg/dL 0-199 Not Available [facility] (Lab) [address], [place], [address], 07/09/2024 05:59:09 07/08/20 24 07/08/2024 LIPID PANEL ,AMA (LDL- CALC) triglyceride s 108 mg/dL 0-150 NCEP Refer ence Value s for Trigl yceri karena: Nelda l: <150 mg/dL Borde rline High: 150 - 199 mg/dL High: 200 - 499 mg/dL Very High: >/= 500 mg/dL Not Available [facility] (Lab) [address] [place], [address], 07/09/2024 05:59:09 07/08/20 24 07/08/2024 LIPID PANEL ,AMA (LDL- CALC) HDL cholesterol 62 mg/dL >40 Not Available [facility] (Lab) [address], [place], [address], 07/09/2024 05:59:09 07/08/20 24 07/08/2024 LIPID PANEL ,AMA (LDL- CALC) LDL cholesterol 105 mg/dL 0-99 high Cutof f value s recom gela d by the Natio nal Delmy stero l Educa tion Progr am: PHILIP ABLE: Delmy stero l <200 mg/dL LDL <100 mg/dL BORDE RLINE : Delmy stero l 200-2 39 mg/dL LDL 101-1 59 mg/dL HIGHE R RISK: Delmy stero l >240 mg/dL LDL >160 mg/dL , HDL <40 mg/dL Not Available [facility] (Lab) [address] [place], [address], 07/09/2024 05:59:09 07/08/20 24 07/08/2024 LIPID PANEL ,AMA (LDL- CALC) non-HDL cholesterol 125 mg/dL no refere nce range A reaso nable goal for non-H DL delmy stero l is one that is 30 mg/dL highe r than the LDL delmy stero l goal. Not Available [facility] (Lab) [address] [place], [address], 07/09/2024 05:59:09 07/08/20 24 07/08/2024 LIPID PANEL ,AMA (LDL- CALC) chol/HDL ratio 3.0 . 0.0-5. 0 On January 17, 2023, [facility] [[email or web address] labor lalit crowell ed the equat ion for calcu latin g estim ated low-d ensit y lipop rotei n-cho leste rol (LDL- C) from the Josh bowen equat ion to the Kalyani burton/Yordan guajardo equat ion. This new equat ion is only valid for lipid panel s with trigl yceri karena < 400 mg/dL . Studi es have demon strat ed that this new equat ion will impro ve the accur acy of LDL-C , espec ially in scena jimenez when LDL-C manish ntrat ions are relat ively low (< 100 mg/dL ), trigl yceri karena are eleva abhishek, or patie nt is non-f astin g. Refer ences : - Kalyani burton, Derek Finch, Boris Gan , Kody montes, Esa Ocampo, Esa slaughter, Panda Naranjo. Elvira ngo , and Jesse Villalpando . 2013. Comp ariso n of a Novel Metho d vs the Fried jessi Equat ion for Estim ating Low-D ensit y Lipop rotei n Delmy stero l Level s from the Stand bart Lipid Profi le. OLIVIA: The Journ al of the Ameri can Medic al Assoc iatio n 310 (19): 2060- . - Milka moreira V, Rachna J, Williams ar A, Ria M, Anny e R, Rayna moreira E, Elvira ngo RS, Kwasi SR, Kalyani burton SS. Fast ing Versu s Nonfa sting and Low-D ensit y Lipop rotei n Delmy stero l Accur acy. Circu latio n. 2017Sep 26;137 (1):1 0-19. Not Available [facility] (Lab) [address], [place], [address], 07/09/2024 05:59:09 07/08/20 24 07/08/2024 CMP(C OMPRE HENSI VE METAB OLIC PANEL ) sodium 138 mmol/ L 133-14 6 Not Available [facility] (Lab) [address] , [place], [address], 07/09/2024 05:59:09 07/08/20 24 07/08/2024 CMP(C OMPRE HENSI VE METAB OLIC PANEL ) potassium 4.0 mmol/ L 3.5-5. 1 Not Available [facility] (Lab) [address], [place], [address], 07/09/2024 05:59:09 07/08/20 24 07/08/2024 CMP(C OMPRE HENSI VE METAB OLIC PANEL ) chloride 101 mmol/ L 98-107 Not Available [facility] (Lab) [address], [place], [address], 07/09/2024 05:59:09 07/08/20 24 07/08/2024 CMP(C OMPRE HENSI VE METAB OLIC PANEL ) carbon dioxide 32 mmol/ L 21-31 high Not Available [facility] (Lab) [address], [place], [address], 07/09/2024 05:59:09 07/08/20 24 07/08/2024 CMP(C OMPRE HENSI VE METAB OLIC PANEL ) anion gap 5 mmol/ L 4-13 Not Available [facility] (Lab) [address], [place], [address], 07/09/2024 05:59:09 07/08/20 24 07/08/2024 CMP(C OMPRE HENSI VE METAB OLIC PANEL ) blood urea nitrogen 11 mg/dL 7-25 Not Available [facility] (Lab) [address], [place], [address], 07/09/2024 05:59:09 07/08/20 24 07/08/2024 CMP(C OMPRE HENSI VE METAB OLIC PANEL ) creatinine 0.83 mg/dL 0.60-1 .30 Not Available [facility] (Lab) [address], [place], [address], 07/09/2024 05:59:09 07/08/20 24 07/08/2024 CMP(C OMPRE HENSI VE METAB OLIC PANEL ) egfrcr (CKD-epi 2020) >90 mL/mi n/1.7 3_m2 >=60 Not Available [facility] (Lab) [address], [place], [address], 07/09/2024 05:59:09 07/08/20 24 07/08/2024 CMP(C OMPRE HENSI VE METAB OLIC PANEL ) calcium 9.6 mg/dL 8.3-10 .5 Not Available [facility] (Lab) [address], [place], [address], 07/09/2024 05:59:09 07/08/20 24 07/08/2024 CMP(C OMPRE HENSI VE METAB OLIC PANEL ) glucose 69 mg/dL 70-100 low Not Available [facility] (Lab) [address], [place], [address], 07/09/2024 05:59:09 07/08/20 24 07/08/2024 CMP(C OMPRE HENSI VE METAB OLIC PANEL ) protein, total 7.1 g/dL 6.4-8. 3 Not Available [facility] (Lab) [address], [place], [address], 07/09/2024 05:59:09 07/08/20 24 07/08/2024 CMP(C OMPRE HENSI VE METAB OLIC PANEL ) albumin 4.7 g/dL 3.5-5. 0 Not Available [facility] (Lab) [address], [place], [address], 07/09/2024 05:59:09 07/08/20 24 07/08/2024 CMP(C OMPRE HENSI VE METAB OLIC PANEL ) ALT 22 units /L 9-43 Not Available [facility] (Lab) [address], [place], [address], 07/09/2024 05:59:09 07/08/20 24 07/08/2024 CMP(C OMPRE HENSI VE METAB OLIC PANEL ) alkaline phosphatase 48 units /L 34-104 Not Available [facility] (Lab) [address], [place], [address], 07/09/2024 05:59:09 07/08/20 24 07/08/2024 CMP(C OMPRE HENSI VE METAB OLIC PANEL ) AST 26 units /L 13-39 Not Available [facility] (Lab) [address], [place], [address], 07/09/2024 05:59:09 07/08/20 24 07/08/2024 CMP(C OMPRE HENSI VE METAB OLIC PANEL ) bilirubin, total 0.6 mg/dL 0.2-1. 2 Not Available [facility] (Lab) [address], [place], [address], 07/09/2024 05:59:09 07/08/20 24 07/08/2024 TSH, REFLE X FREE T4 TSH 1.68 uIU/m L 0.30-5 .33 Not Available [facility] (Lab) [address], [place], [address], 07/09/2024 05:59:09 07/08/20 24 07/08/2024 VITAM IN D, 25-OH (TOTA L D2/D3 ) vitamin D, 25-hydroxy, total 39.6 NG/mL 30.0-1 00.0 Sugge stive of Defic iency : <20 ng/mL Sugge stive of Insuf ficie ncy: 20-29 ng/mL Sugge stive of Suffi cienc y: 30-10 0 ng/mL Sugge stive of Toxic ity: >150 ng/mL Not Available [facility] (Lab) [address], [place], [address], 07/09/2024 05:59:09 07/08/20 24 07/08/2024 IMAGE GUIDE D PAP AND HPV REGAR DLESS image guided Pap, HPV regardless of Pap result SEE RESULT S BELOW CASE REPOR T: Cytol ogy Gynec ologi sarah Repor t Case: [id number] Autho rijazzyn g Provi jorge: Leandro Begum MD Colle cted: 07/08 0959 Order ing Locat ion: [place] [facility] Recei sandra: 07/09 0143 First Scree n: Rupal Villalpando ay, CT Rescr een: Salome jewell, Kody venegas, CT Speci men: Mel chand Pap - Image d, Cervi x STATE MENT OF ADEQU ACY: Satis facto ry for evalu ation Trans forma tion zone compo nent absen t The absen ce of an endoc ervic al compo nent was confi rmed by an addit ional scree ner. ----- ----- ----- ----- ----- ----- ----- ----- ----- ----- ----- ----- ----- ----- ----- ----- ----- ---- FINAL DIAGN OSIS: Negat carmina for Intra epith elial Magan burton or Gareth gage ([facility]) . Elect jennifer delong d by Salome jewell, Kody venegas, CT on 07/12 at 7:46 PM ----- ----- ----- ----- ----- ----- ----- ----- ----- ----- ----- ----- ----- ----- ----- ----- ----- ---- HPV RESUL TS: HPV mRNA E6/E7 : No HPV mRNA Detec abhishek NOTE: This high risk HPV mRNA assay detec ts fourt een high- risk HPV types (16, 18, 31, 33, 35, 39, 45, 51, 52, 56, 58, 59, 66, 68) witho ut diffe renti ation . COMME NT: This speci men was revie wed by a Cytot echno logis t and/o r Patho logis t (as indic ated in this repor t) after evalu ation using the Thinp rep Imagi ng Syste m. CLINI SARAH INFOR MATIO N: Menst rual Statu s: LMP (if appli cable ): Clini sarah Histo ry/Pr eviou s Pap: Type of Neopl janis (if appli cable ): Signi fican t Clini sarah Findi ngs: Other Histo ry: Hormo matt (if appli cable ): PAP EDUCA CANDICE L NOTE: The Pap Test is a scree mannie test with an inher ent false negat carmina rate. Liqui d-bas ed sampl ing may decre ase, but will not elimi alberto, false negat carmina resul ts. A negat carmina resul t does not precl ude the prese nce and/o r devel opmen t of disea se, since the prese nce of abnor mal cells in the sampl e depen ds on the locat ion of the lesio n and sampl ing techn ique. Bob nued regul ar scree mannie is the best metho d of cance r preve ntion . If repor abhishek cytol ogic findi ng do not corre late with physi sarah and/o r histo rical findi ngs, furth er inves tigat ion is recom gela d, as clini otoniel warra nted. Not Available [facility] (Lab) [address] , [place], [address], 07/12/2024 20:50:15 09/09/20 24 09/09/2024 WOMEN 'S HEALT H SWAB, FARSHAD bacterial vaginosis (bv), tma Negati ve negati ve This test detec ts ribos omal RNA from bacte ben assoc iated with bacte rial vagin osis (BV), inclu ding Lacto bacil laureen (L. gasse ri, L. crisp atus and L. jense sandra), Gardn erell a vagin karmen, and Atopo bium vagin ae by Trans cript ion-M ediat ed Ampli ficat ion (TMA) . A singl e quali tativ e resul t is repor abhishek based on instr ument softw are to deter mine BV posit carmina or negat carmina statu s. Not Available [facility] (Lab) [address], [place], [address], 09/11/2024 04:35:58 09/09/20 24 09/09/2024 WOMEN 'S HEALT H SWAB, FARSHAD montse species, tma Negati ve negati ve Not Available [facility] (Lab) [address] [place], [address], 09/11/2024 04:35:58 09/09/20 24 09/09/2024 WOMEN 'S HEALT H SWAB, FARSHAD montse glabrata, tma Negati ve negati ve Not Available [facility] (Lab) [address] [place], [address], 09/11/2024 04:35:58 09/09/20 24 09/09/2024 WOMEN 'S HEALT H SWAB, FARSHAD trichomonas vaginalis, tma Negati ve negati ve This assay tests for and diffe renti ates betwe en Julia da glabr leonardo, the Julia da speci es group (C. albic ans, C. tropi calis , C. parap radha is, C. dubli chung is), and Trich omona s vagin karmen by Trans cript ion-M ediat ed Ampli ficat ion (TMA) . Not Available [facility] (Lab) [address] [place], [address], 09/11/2024 04:35:58 09/09/20 24 09/09/2024 CULTU RE: URINE result report SEE RESULT S BELOW Test: Cultu re: Urine Speci men Sourc e: Urine - Clean Catch Speci men Type: Urine Speci men Date: 09/09 1654 Resul t Date: 09/11 0328 Resul t Statu s: Final resul t Abnor mal: No Resul ting Lab: [facility] [address] [facility] [address] Tel: CULTU RE ----- ----- ----- --- No growt h in 1 day (dete ction level of 10,00 0 colon ies / ml.) Not Available [facility] (Lab) [address] [place], [address], 09/11/2024 04:36:02 09/09/20 24 09/09/2024 urina lysis , dipst ick Leukocytes - Not Available [facility] [address], [place], [address], 09/09/2024 17:40:45 09/09/20 24 09/09/2024 urina lysis , dipst ick Nitrite - Not Available [facility] [address], [place], [address], 09/09/2024 17:40:45 09/09/20 24 09/09/2024 urina lysis , dipst ick Urobilinogen - Not Available [facility] jes[address], [place], [address], 09/09/2024 17:40:45 09/09/20 24 09/09/2024 urina lysis , dipst ick Protein trace Not Available [facility] [address], [place], [address], 09/09/2024 17:40:45 09/09/20 24 09/09/2024 urina lysis , dipst ick pH 5 Not Available [facility], [place], [address], 09/09/2024 17:40:45 09/09/20 24 09/09/2024 urina lysis , dipst ick Specific [place] 1.020 Not Available [facility] [address], [place], [address], 09/09/2024 17:40:45 09/09/20 24 09/09/2024 urina lysis , dipst ick Ketone - Not Available [facility] [address], [place], [address], 09/09/2024 17:40:45 09/09/20 24 09/09/2024 urina lysis , dipst ick Bilirubin - Not Available [facility] [address], [place], [address], 09/09/2024 17:40:45 09/09/20 24 09/09/2024 urina lysis , dipst ick Glucose - Not Available [facility] [address], [place], [address], 09/09/2024 17:40:45 09/09/20 24 09/09/2024 urina lysis , dipst ick Appearance clear Not Available [facility]arcia [address], [place], [address], 09/09/2024 17:40:45 09/09/20 24 09/09/2024 urina lysis , dipst ick Color light yellow Not Available [facility] [address], [place], [address], 09/09/2024 17:40:45 Result Notes None recorded. Problems Name Problem SNOMED Code Status Onset Date Resolution Date Notes Provider Name and Address Organization Details Recorded Time Pregnanc y [id number] Completed 201909/09/[address] [facility] 2 13:39:49 Normal pregnanc y in multigra aj [id number] 4106 Completed 201812/14/2020 Encounte r for suprvsn of normal pregnanc y, second trimeste r;Record ed Elsewher e: No Locat ion: [facility] S ource: EHR Habitat Management Coordinator eh: N Ina ce ID: 0001 Danyel lable Time: 04:15:00 PM Dana Medrano [facility] 1 14:32:[address] Concept Completed 201912/14/2020 Maternal care for oth abnormal ity and damage, unsp;Rec orded Elsewher e: No Locat ion: [facility] S ource: EHR Habitat Management Coordinator eh: N Practi ce ID: 0001 Danyel lable Time: 03:45:00 PM Dana zavala [facility] 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 14:32:[address] Concept Completed 201812/14/2020 Encntr for general adult medical exam w/o abnormal findings ;Recorde d Elsewher e: No Locat ion: [facility] S ource: EHR Habitat Management Coordinator eh: N Practi ce ID: 0001 Danyel lable Time: 03:30:00 PM Dana zavala [facility] 14:32:36 Gestatio n period, 30 weeks [id number] Completed 201912/14/2020 30 weeks gestatio n of pregnanc y;Record ed Elsewher e: No Locat ion: [facility] S ource: EHR Habitat Management Coordinator eh: N Practi ce ID: 0001 Danyel lable Time: 03:45:00 PM Dana zavala [facility] 14:32:17 Gestatio n period, 34 weeks [id number] Completed 201912/14/2020 34 weeks gestatio n of pregnanc y;Record ed Elsewher e: No Locat ion: [facility] S ource: EHR Habitat Management Coordinator eh: N Practi ce ID: 0001 Danyel lable Time: 04:00:00 PM Dana Medrano [facility] 14:32:19 Gestatio n period, 9 weeks [id number] Completed 201812/14/2020 9 weeks gestatio n of pregnanc y;Record ed Elsewher e: No Locat ion: [facility] S ource: EHR Habitat Management Coordinator eh: N Natalyti ce ID: 0001 Danyel lable Time: 03:30:00 PM [facility] 14:32:24 finding Completed 201912/14/2020 Matern care for oth or susp poor fetl grth, 2nd tri, unsp;Rec orded Elsewher e: No Locat ion: [facility] S ource: EHR Habitat Management Coordinator eh: N Natalyti ce ID: 0001 Danyel lable Time: 01:00:00 PM Dana Medrano [facility] 14:32:08 Speciali zed medical examinat ion Completed 201212/14/2020 Gynecolo gical Examinat ion;Miguel Ángel rded Elsewher e: No Locat ion: [facility] S ource: EHR Habitat Management Coordinator eh: N Natalyti ce ID: 0001 Danyel lable Time: 10:45:00 AM Dana Medrano [facility] 14:32:41 Atypical glandula r cells on cervical Papanico laou smear [id number] Completed 201412/14/2020 Abnormal glandula r Papanico laou smear of cervix;R ecorded Elsewher e: No Locat ion: [facility] S ource: EHR Habitat Management Coordinator eh: N Natalyti ce ID: 0001 Danyel lable Time: 03:45:00 PM Dana Medrano [facility] 14:31:58 Screenin g for malignan t neoplasm of cervix Completed 201112/14/2020 Screenin g for malignan t neoplasm s of the cervix;R ecorded Elsewher e: No Locat ion: [facility] S ource: EHR Habitat Management Coordinator eh: N Natalyti ce ID: 0001 Danyel lable Time: 10:00:00 AM Dana zavala [facility] 14:32:33 Pregnanc y, childbir th and puerperi um finding Completed 201912/14/2020 Encntr for suprvsn of normal first preg, third trimeste r;Record ed Elsewher e: No Locat ion: [facility] S ource: EHR Habitat Management Coordinator eh: N Natalyti ce ID: 0001 Danyel lable Time: 04:15:00 PM Dana Medrano [facility] 14:32:31 Gestatio n period, 25 weeks [id number] Completed 201912/14/2020 25 weeks gestatio n of pregnanc y;Record ed Elsewher e: No Locat ion: [facility] S ource: EHR Habitat Management Coordinator eh: N Natalyti ce ID: 0001 Danyel lable Time: 01:00:00 PM Dana zavala [facility] 14:32:15 Urinary tract infectio us disease [id number] Completed 201812/14/2020 Urinary tract infectio n, site not specifie d;Record ed Elsewher e: No Locat ion: [facility] S ource: EHR Habitat Management Coordinator eh: N Ina ce ID: 0001 Danyel lable Time: 10:15:00 AM Dana zavala [facility] 14:32:46 Antenata l screenin g Completed 201812/14/2020 Encounte r for other specifie d antenata l screenin g;Record ed Elsewher e: No Locat ion: [facility] S ource: EHR Habitat Management Coordinator eh: N Natalyti ce ID: 0001 Danyel lable Time: 03:45:00 PM Danarichie Medrano [facility] 14:31:53 Gestatio n period, 36 weeks [id number] Completed 201912/14/2020 36 weeks gestatio n of pregnanc y;Record ed Elsewher e: No Locat ion: [facility] S ource: EHR Habitat Management Coordinator eh: N Ina ce ID: 0001 Danyel lable Time: 02:45:00 PM Danarichie Medrano [facility] 14:32:21 Cytologi c finding [id number] Completed 201312/14/2020 Papanico laou smear of cervix with low grade squamous intraepi thelial lesion (LGSIL); Recorded Elsewher e: No [facility]at ion[facility] ID: 0001 Danyel lable Time: 10:45:00 AM Dana [facility] 14:32:04 Pregnanc y detectio n examinat ion Completed 201812/14/2020 Encounte r for pregnanc y test, result positive ;Recorde d Elsewher e: No Locat ion: [facility] S ource: EHR Habitat Management Coordinator eh: N Ina ce ID: 0001 Danyel lable Time: 04:00:00 PM Dana [facility] 14:32:27 heart finding Completed 201912/14/2020 Abnlt in heart rate and rhythm comp labor and delivery ;Recorde d Elsewher e: No Locat ion: [facility] S ource: EHR Habitat Management Coordinator eh: N Natalyti ce ID: 0001 Danyel lable Time: 03:30:00 PM Danarichie Medrano [facility] 14:32:13 Atypical squamous cells of undeterm ined signific ance on cervical Papanico laou smear [id number] Completed 201212/14/2020 Papanico laou smear of cervix with atypical squamous cells of undeterm ined signific ance (ASC-US) ;Recorde d Elsewher e: No Locat ion: [facility] S ource: EHR Habitat Management Coordinator eh: N Natalyti ce ID: 0001 Danyel lable Time: 03:15:00 PM Dana zavala [facility] 1 14:32:01 Pregnanc y, childbir th and puerperi um finding Completed 201912/14/2020 Encntr for suprvsn of normal first preg, second trimeste r;Record ed Elsewher e: No [facility]: [facility] Habitat Management Coordinator eh: N Natalyti ce ID: 0001 Danyel lable Time: 01:45:00 PM Dana zavala [facility] 1 14:32:29 Antenata l screenin g for malforma tion Completed 201812/14/2020 Encounte r for antenata l screenin g for malforma tions;Re corded Elsewher e: No [facility]: E[facility] Habitat Management Coordinator eh: N Natalyti ce ID: 0001 Danyel lable Time: 04:15:00 PM Dana Medrano [facility] 1 14:31:55 Adult health examinat ion Completed 201312/14/2020 ROUTINE MEDICAL EXAM;Rec orded Elsewher e: No [facility]: E[facility] Habitat Management Coordinator eh: N Natalyti ce ID: 0001 Danyel lable Time: 10:30:00 AM Dana zavala [facility] 1 14:31:33 finding Completed 201912/14/2020 Matern care for oth or susp poor fetl grth, third tri, unsp;Rec orded Elsewher e: No Locat ion: [facility] S ource: EHR Habitat Management Coordinator eh: N Natalyti ce ID: 0001 Danyel lable Time: 04:00:00 PM Dana Medrano [facility] 1 14:32:10 Dysuria [id number] Completed 201812/14/2020 Dysuria; Practice ID: 0001 Dana zavala [facility] 14:32:06 Unstable lie Completed 201912/14/2020 Maternal care for unstable lie, fetus 1;Record ed Elsewher e: No Locat ion: [facility] S ource: EHR Habitat Management Coordinator eh: N Practi ce ID: 0001 Danyel lable Time: 02:45:00 PM Dana zavala, [facility] 1 14:32:43 Gestatio n period, 38 weeks [id number] Completed 201912/14/2020 38 weeks gestatio n of pregnanc y;Record ed Elsewher e: No Locat ion: [facility] S ource: EHR Habitat Management Coordinator eh: N Natalyti ce ID: 0001 Danyel lable Time: 03:30:00 PM Dana zavala, [facility] 1 14:32:23 Pregnanc y [id number] Completed 202002/24/2022 Maggy Linkgini ehl [facility], [facility] 2 13:39:49 delivery - delivere d [id number] Completed for breech, probably repeat ltcs Maggy Beebe ehl null, [facility] 2 13:39:44 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 [id number] Completed Rhogam 11/29 Maggy Abiel ehl null, [facility] 2 13:39:44 Thrombop hlebitis [id number] Completed Maggy Abiel ehl null, [facility] 2 13:39:44 COVID-19 [id number] Completed serial growth u/s and asa Maggy Abiel ehl null, [facility] 2 13:39:44 Impaired glucose toleranc e in pregnanc y [id number] Completed Failed 1hr GTT - passed 3hr Maggy Beebe [facility] 2 13:39:44 Problem Notes None recorded. Procedures Surgical History Date Name Laterality Status Provider Name and Address Organization Details Recorded Time 07/03/20 23 Date of Last Pap Smear completed [facility] 07/03/2023 09:21:51 02/08/20 22 SECTION (SURG) completed [facility] 02/08/2022 09:55:36 09/25/19 [address] [facility] 01/06/2020 14:22:14 05/01/20 [address] [facility] 03/02/2021 11:23:34 tonsilectomy/lore noids completed [facility] 01/06/2020 14:21:54 Imaging Results None recorded. Procedure Notes None recorded. Medical Equipment None Reported. Allergies No known drug allergies Medications Name Sig Start Date Stop Date Status Note LastModified by Organization Details LastModified Time amoxicill in 500 mg capsule 07/03 completed Not Available Not Available Not Available fluconazo le 150 mg tablet Take one tablet by mouth STAT, repeat in 48 hours 2023 active Not Available Not Available Not Avai lable valacyclo vir 1 gram tablet active Not Available Not Available Not Available hydrocodo ne 5 mg-acetam inophen 325 mg tablet 02/05 completed Not Available Not Available Not Available metronida zole 0.75 % (37.5 mg/5 gram) vaginal gel Insert 1 applicat orful every day by vaginal route. 12/28 completed Not Available Not Available Not Available ciproflox acin 500 mg tablet take 1 tablet by oral route every 12 hours 01/14 completed Not Available Not Available Not Available sulfameth oxazole 800 mg-trimet hoprim 160 mg tablet take 1 tablet by oral route every 12 hours for 10 days 01/14 completed Not Available Not Available Not Available omeprazol e 40 mg capsule,d elayed release 07/03 completed Not Available Not Available Not Available amoxicill in 500 mg tablet 06/07 completed Not Available Not Available Not Available ciclopiro x 8 % topical solution 12/28 completed Not Available Not Available Not Available hydrocort isone 2.5 % topical cream with perineal applicato r 06/07 completed Not Available Not Available Not Available amoxicill in 875 mg tablet 07/03 completed Not Available Not Available Not Available lorazepam 0.5 mg tablet 07/03 completed Not Available Not Available Not Available meclizine 25 mg tablet TK 1 T PO BID PRN 12/28 completed Not Available Not Available Not Available pantopraz ole 40 mg tablet,de layed release 12/28 completed Not Available Not Available Not Available oseltamiv ir 75 mg capsule 09/09 completed Not Available Not Available Not Available esomepraz ole magnesium 40 mg capsule,d elayed release 09/09 completed Not Available Not Available Not Available neomycin- polymyxin -dexameth 3.5 mg/mL-10, 000 unit/mL-0 .1% eye drops 12/28 completed Not Available Not Available Not Available triamcino lone acetonide 0.1 % topical ointment APPLY A THIN LAYER TO THE AFFECTED AREA(S) BY TOPICAL ROUTE 2 TIMES PER DAY PRN 2023 active Not Available Not Available Not Avai lable Tylenol 325 mg tablet take 1 tablet by oral route every 4 hours as needed 12/28 completed Prescrib ed Sharonda e: Yes Loca tion: [facility] By: piero villa DateTime : 02/16/20 09:30:00 AM Not Available Not Available Not Available mupirocin 2 % topical ointment 06/07 completed Not Available Not Available Not Available methylpre dnisolone 4 mg tablets in a dose pack 09/09 completed Not Available Not Available Not Available ketoconaz ole 2 % topical cream 09/09 completed Not Available Not Available Not Available dicyclomi ne 10 mg capsule 07/03 completed Not Available Not Available Not Available amoxicill in 875 mg-potass ium clavulana te 125 mg tablet 07/03 completed Not Available Not Available Not Available escitalop karmen 10 mg tablet active Not Available Not Available Not Available escitalop karmen 20 mg tablet 09/09 completed Not Available Not Available Not Available Avar 10 %-5 % (w/w) topical cleanser 12/28 completed Not Available Not Available Not Available azelaic acid 15 % topical gel 06/07 completed Not Available Not Available Not Available Junel .02/21 (21) 1.5 mg-30 mcg tablet take 1 tablet by oral route every day 03/06 completed Prescrib ed Elsewher e: No Locat ion: [facility] By: silvia horne DateTime : 03/05/20 12 10:00:00 AM Not Available Not Available Not Available nitrofura ntoin monohydra te/macroc rystals 100 mg capsule Take 1 capsule every 12 hours by oral route as directed for 7 days. 10/13 completed Not Available Not Available Not Available biotin 07/03 completed Not Available Not Available Not Available 07/03 completed Not Available Not Available Not Available Gildess FE 10/14 (28) 1 mg-20 mcg (21)/75 mg (7) tablet TAKE 1 TABLET DAILY 02/15 completed Prescrib ed Elsewher e: No Locat ion: [facility] By: piero villa DateTime : 02/21/20 18 09:44:37 AM Not Available Not Available Not Available Norlyda 0.35 mg tablet Take 1 tablet every day by oral route. 07/03 completed Not Available Not Available Not Available Vitals Date Recorded Body height Body mass index (BMI) Body weight Systolic blood pressure Diastolic blood pressure Provider Name and Address Organization Details Last Updated DateTime 03/07/2022 162.56 cm 24 kg/m2 79251.93 g 136 mm[Hg] 80 mm[Hg] Dana Medrano [facility] 2 15:47:25 Date Recorded Body height Body mass index (BMI) Body weight Systolic blood pressure Diastolic blood pressure Provider Name and Address Organization Details Last Updated DateTime 06/07/2022 162.56 cm 23.7 kg/m2 41399.75 g 121 mm[Hg] 75 mm[Hg] Dana Medrano [facility] 2 10:25:19 Date Recorded Body height Body mass index (BMI) Body weight Systolic blood pressure Diastolic blood pressure Provider Name and Address Organization Details Last Updated DateTime 07/03/2023 162.56 cm 23.5 kg/m2 48221.15 g 124 mm[Hg] 75 mm[Hg] Dana Medrano [facility] 3 09:54:02 Date Recorded Body height Body mass index (BMI) Body weight Systolic blood pressure Diastolic blood pressure Provider Name and Address Organization Details Last Updated DateTime 07/08/2024 162.56 cm 23.5 kg/m2 65481.15 g 121 mm[Hg] 77 mm[Hg] Melissa Diaz [facility] 4 09:53:06 Date Recorded Body height Body mass index (BMI) Body weight Systolic blood pressure Diastolic blood pressure Provider Name and Address Organization Details Last Updated DateTime 09/09/2024 162.56 cm 24 kg/m2 15464.21 g 144 mm[Hg] 82 mm[Hg] Tiffanie Adela [facility] 4 17:29:26 Social History Question Answer Notes LastModified by Organizat ion Details LastModified Time Tobacco Smoking Status Never Smoker Dana Medrano [facility] 07/03/2023 09:48:17 Do You Have An Advance Directive? No Information n ot available 12/14/2020 Are You Blind Or Do You Have Difficulty Seeing? No Information n ot available 12/14/2020 What Is Your Level Of Caffeine Consumption? Occasional Information not available 03/02/2021 How Much Tobacco Do You Chew? None Information not available 12/14/2020 In The 14 Days Before Symptom Onset, Have You Had Close Contact With A Laboratory-confirm ed COVID-19 While That Case Was Ill? No Information n ot available 12/14/2020 In The 14 Days Before Symptom Onset, Have You Had Close Contact With A Person Who Is Under Investigation For COVID-19 While That Person Was Ill? No Information not available 12/14/2020 Have You Been To An Area Known To Be High Risk For COVID-19? No Information not available 12/14/2020 Are You Deaf Or Do You Have Serious Difficulty Hearing? No Information not available 12/14/2020 What Type Of Diet Are You Following? REGULAR Information n ot available 12/14/2020 What Is The Highest Grade Or Level Of School You Have Completed Or The Highest Degree You Have Received? [id number] Information not available 12/14/2020 Are There Any Guns Present In Your Home? Yes Information not available 12/14/2020 Do You Use Protection During Sex? No Information not available 12/14/2020 Do You Use Your Seat Belt Or Car Seat Routinely? Yes Information not available 12/14/2020 Do You Have Smoke And Carbon Monoxide Detectors In Your Home? Yes Information not available 12/14/2020 How Much Tobacco Do You Smoke? No Information not available 12/14/2020 Do You Use Sunscreen Routinely? Yes Information not available 12/14/2020 Have You Used IV Drugs? No Information not available 12/14/2020 Sex: Unknown Functional Status Question Answer Note LastModified by Organizat ion Details LastModified Time Do you use any illicit or recreational drugs? No Information not available 12/14/2020 What is your level of alcohol consumption? None [email or web address] Information not available 09/09/2024 Are you able to walk? 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 Moderate Information not available 12/14/2020 Mental Status Question Answer Note LastModified by Organization D etails LastModified Time Do you feel stressed (tense, restless, nervous, or anxious, or unable to sleep at night)? [id number] samy Information not available 12/14/2020 Family History Relationship Description Onset Age of this Age Resolved Age Notes LastModified by Organization Details LastModified Time Maternal Grandfather Diabetes mellitus [email or web address] Not available 2019 14:21:04 Medical History Condition Response History of STI Y History of abnormal pap Y Gynecological History Statement/Question Response Abnormal Pap Yes Flow Moderate Date of LMP 08/28/2024 N Was last menstrual period normal N STIs/STDs N HPV Vaccine N Colposcopy 05/01/2014 Duration of Flow (days) 4 Current Control Method N/A Age at First Child 29 Are cycles usually normal Y Frequency of Cycle (Q days) 34 Sexually Active? Y Menses Monthly Y Date of Last Pap Smear 07/03/2023 Sexual Problems? N Desired Control Method Partner Vas ectomy LMP Definite N Obstetrics History GPAL:G 2 P 2 0 0 2 Type Value Full Term 2 Living 2 Total 2 Past Encounters Encounter ID Performer Location Encounter Start Date Encounter Closed Date Diagnosis/Indication Diagnosis SNOMED-CT Code Diagnosis ICD10 Code Diagnosis Note [id number] Jordan Begum MD [facility] [address],[place] [address] 01/06/2020 10:27:35 01/07/2020 11:49:48 Normal [id number] Z34.80 [id number] Jordan Begum MD [facility] [address],[place] [address] 01/15/2020 12:04:54 01/15/2020 12:39:30 Postoperative visit 039180250 Z09 this patient is a 29-year-ol d female who is postop day 7. From a delivery. She is recovering normally. Her incision is clean dry and intact. She will follow up in 3 weeks [id number] Jordan Begum MD [facility] [address],[place] [address] 02/06/2020 14:51:45 02/06/2020 16:12:49 state 42297394 Z39.2 This patient is a 29-year-ol d female who presents for post follow-up. She is doing well. Her baby is doing well. Her bleeding is minimal. She is breast-fee ding. She will follow-up in the next 3 months for annual exam. [id number] Jordan Begum MD [facility] [address],[place] [address] 02/24/2020 09:34:08 02/24/2020 10:40:13 Gynecologic examination 24793590 Z01.419 This patient is here for her annual exam. A thorough history was taken. A physical exam was performed. Age appropriat e routine health screening was ordered, performed, and discussed. Recommende d testing was ordered. She was asked to follow up in one year. She will be informed of any test results. Vaginitis 39182655 N76.0 [id number] MD Zahraa Wynn [address],[place] [address] 12/14/2020 14:20:44 12/14/2020 15:03:34 Pain in pelvis 49565219 R10.2 [id number] MD Zahraa Wynn [address],[place] [address] 12/28/2020 17:05:27 12/28/2020 17:48:49 Pain in pelvis 77266197 R10.2 [id number] MD Zahraa Wynn [address],[place] [address] 12/28/2020 17:05:53 12/29/2020 00:04:00 Pain in pelvis 41368104 R10.2 this patient is a 30-year-ol d female presents for follow-up after pelvic pain evaluation . Ultrasound was performed. Ultrasound is unremarkab le. We discussed her pelvic pain. She does have a previous evaluation for interstiti al cystitis and a suspicion for interstiti al cystitis. We talked about the interstiti al cystitis diet. Talked about evaluation , treatment. We agreed to observe. [id number] Jordan Begum MD [facility] [address],[place] [address] 03/02/2021 11:28:23 03/02/2021 12:08:27 Gynecologic examination 76050634 Z01.419 This patient is here for her annual exam. A thorough history was taken. A physical exam was performed. Age appropriat e routine health screening was ordered, performed, and discussed. Recommende d testing was ordered. She was asked to follow up in one year. She will be informed of any test results. [facility] - [facility] [id number] [address],[place] [address] 07/05/2021 17:02:31 07/05/2021 18:22:41 test positive 779294803 Z32.01 Risk factors addressed: Tobacco Cessation, Safe Sexual Practices, environmen radha, work hazards, travel restrictio ns, seat belt use.Eat a health well balanced diet, avoid alcohol, tobacco, and street drugs.Enga ge in daily low impact exercise, avoid temperatur e extremes, and cat, rodent, and bird feces.Avoi d travel to areas where zika virus is a concern.Of fered cf/sma/nip t. Desires testing. Handouts given and discussed with patient.Ch ildbirth classes recommende d.New OB sheet given.If previous , counseling . Encouraged flu shot. Has already had covid vaccine series.Pt verbalizes that she understand s the importance of above instructio ns.All questions were answered.P atient reminded to have annual well woman examinatio n and address [facility] . [id number] Jordan Begum MD [facility] [address],[place] [address] 07/05/2021 17:02:00 07/05/2021 17:29:08 [id number] Jordan Begum MD [facility] [address],[place] [address] 08/05/2021 09:34:32 08/05/2021 10:17:35 screening [id number] Z36.82 [id number] Jordan Begum MD [facility] [address],[place] [address] 08/05/2021 09:37:04 08/05/2021 11:14:37 Routine care 573780207 Z34.91 [id number] MD Zahraa Wynn [address],[place] [address] 09/04/2021 10:00:56 09/04/2021 10:32:25 Routine care 608314665 Z34.91 [id number] MD Zahraa Wynn [address],[place] [address] 10/13/2021 17:25:32 10/14/2021 15:57:57 Routine care 723599549 Z34.91 [id number] MD Zahraa Wynn [address],[place] [address] 10/13/2021 17:24:56 10/13/2021 18:29:59 screening for malformation 161652938 Z36.3 [id number] MD Zahraa Wynn [address],[place] [address] 11/01/2021 16:06:45 11/01/2021 16:44:41 Routine care 724881863 Z34.91 [id number] MD Zahraa Wynn [address],[place] [address] 11/22/2021 16:06:06 11/22/2021 16:50:38 Infectious disease in mother complicating , childbirth AND/OR puerperium 72353227 O98.919 U07.1 Z3A.28 [id number] MD Zahraa Wynn [address],[place] [address] 11/22/2021 16:07:02 11/22/2021 17:48:25 Routine care 281532823 Z34.91 s ection following previous section [id number] O34.219 [id number] MD Zahraa Wynn [address],[place] [address] 12/06/2021 16:46:08 12/07/2021 11:26:57 Routine care 263788840 Z34.91 [id number] MD Zahraa Wynn [address],[place] [address] 12/29/2021 17:25:05 12/29/2021 17:52:44 COVID-19 071595535 U07.1 O99.891 Z3A.33 [id number] MD Zahraa Wynn [address],[place] [address] 12/29/2021 17:25:24 12/29/2021 18:04:39 Routine care 400504006 Z34.91 [id number] MD Zahraa Wynn [address],[place] [address] 01/17/2022 16:06:28 01/17/2022 16:44:06 COVID-19 677320189 U07.1 [id number] MD Zahraa Wynn [address],[place] [address] 01/17/2022 16:06:51 01/17/2022 17:57:36 Routine care [id number] Z34.91 [id number] MD Zahraa Wynn [address],[place] [address] 01/24/2022 16:05:38 01/25/2022 12:57:49 Routine care 774457354 Z34.91 [id number] MD Zahraa Wynn [address],[place] [address] 02/02/2022 16:46:52 02/02/2022 17:33:28 Routine care 665628413 Z34.91 [id number] MD Zahraa Wynn [address],[place] [address] 02/08/2022 09:44:10 02/08/2022 09:45:22 [id number] MD Zahraa Wynn [address],[place] [address] 02/14/2022 14:44:33 02/14/2022 17:30:26 Postoperative care 413319421 Z48.89 This patient is a 89-year-o ld female who presents for postop follow-up. She is 1 week postop from a delivery. Her incision is clean dry and intact. She has no complaints . Her bleeding is minimal. She denies any nausea, vomiting, fever, chills. She denies any chest pain or shortness of breath. Her baby is doing well. Her mood is good. [id number] Jordan Begum MD [facility] [address] [address] 03/07/2022 15:21:57 03/07/2022 16:02:19 state 31398887 Z39.2 This patient is a 29-year-ol d female who presents for post follow-up. She is doing well. Her baby is doing well. Her bleeding is minimal. She is breast-fee ding. She will follow-up in the next 3 months for annual exam. prescribed the mini pill. [id number] Jordan Begum MD [facility] [address] [address] 06/07/2022 10:11:25 06/07/2022 11:00:26 Routine care 768607573 Z34.91 Annual gynecologi sarah exam performed. Patient will come back in a year unless there are new symptoms. Suggest Calcium with Vitamin D if not eating in diet. Patient advised to get annual flu shot. Recommend yearly physicals and preform monthly breast exams. Genetic testing is available for patients with family history of cancer. Engage in safe sexual practices, use condoms. Encouraged to have daily exercise. Avoid tobacco and illicit drugs, moderation of alcohol. If BMI greater than 25 dietary consult advised. If you have any questions please call or email. Beto chambers - ordered Pap - today Gynecologi c examination 84392856 Z01.419 This patient is here for her annual exam. A thorough history was taken. A physical exam was performed. Age appropriat e routine health screening was ordered, performed, and discussed. Recommende d testing was ordered. She was asked to follow up in one year. She will be informed of any test results. Pap - today [id number] Jordan Begum MD [facility] [address] [address] 07/03/2023 09:45:06 07/03/2023 10:35:16 Gynecologic examination 12870626 Z01.419 This patient is here for her annual exam. A thorough history was taken. A physical exam was performed. Age appropriat e routine health screening was ordered, performed, and discussed. Recommende d testing was ordered. She was asked to follow up in one year. She will be informed of any test results. labs - done Pap - today [id number] Jordan Begum MD [facility] [address] [address] 07/08/2024 09:46:34 07/08/2024 11:21:29 Gynecologic examination 42527752 Z01.419 Z11.51 This patient is here for her annual exam. A thorough history was taken. A physical exam was performed. Age appropriat e routine health screening was ordered, performed, and discussed. Recommende d testing was ordered. She was asked to follow up in one year. She will be informed of any test results. labs - done today Pap - today [id number] Jordan Begum MD [facility] [address],[place] [address] 09/09/2024 17:21:53 09/09/2024 17:58:50 Urinary symptoms 116992948 R39.9 Will send urine culture to r/o UTI due to pt's report of pelvic pressure/h esitancy. Vulvovaginitis 95569434 N76.0 Discussed empirical treatment with fluconazol e for suspected yeast infection based on reported symptoms and physical exam findings.D iscussed vulvar care guidelines in addition to laundry/sk in irritants to avoid.Vagi nitis panel sent. Health Concerns Section Related Observation LastModified by Organization Detai ls LastModified Time None Recorded Concern Status LastModified by Organization Details LastModified Time None Recorded Advance Directives Directive N: Payers Encounter Date Sequence Insurance Name Policy Number Policy Cueva Covered Member ID Cueva Member ID Guarantor Name 03/07/2022 1 [facility] [id number] Love Dhaliwal [id number] Love Dhaliwal 06/07/2022 1 [facility] [id number] Love Gill Hoguet [id number] [facility] Hoguet 07/03/2023 1 [facility] [id number] Love Willarduet [id number] [facility] 07/08/2024 1 [facility] [id number] Love Gill Hoguet [id number] [facility] 09/09/2024 1 [facility] [id number] Love Willarduet [id number] [facility] Montseueelda Notes Date Note Type Note Provider Name and Address Organization Details Recorded Time 03/07/2022 text/html VisitReported bypatient.Notes:Reva s patient is a 29-year-old female who presents for post follow-up. She is doing well. Her baby is doing well. Her bleeding is minimal. She is breast-feeding. She will follow-up in the next 3 months for annual exam. prescribed the mini pill. Jordan Begum MD [address], [place], [address], [facility] 03/07/2022 15:58:21 06/07/2022 text/html Annual GYNReport ed bypatient.History:n o gynecologic complaints Menstrual cycle:amenorrhea - breast feeding Urinary symptoms:No hematuria; No incontinence Vulva:No genital lesion Vagina:Normal vaginal discharge Breast:No breast pain; No breast lump; No nipple discharge Current Contraception: control not practiced Sexual complaints:No sexual complaints; No pain during intercourse Psychological symptoms:No depression; No anxiety Preventive measures:Encourage self breast examination; Encourage regular exercise Jordan Begum MD [address], [place], [address], [facility] 06/07/2022 10:53:18 07/03/2023 text/html Annual GYNReport ed bypatient.History:n o gynecologic complaints Menstrual cycle:Normal menses Urinary symptoms:No hematuria; No incontinence Vulva:No genital lesion Vagina:Normal vaginal discharge Breast:No breast pain Current Contraception:Partn er had vasectomy Sexual complaints:No sexual complaints; No pain during intercourse Psychological symptoms:No depression;Anxiety( txed) Preventive measures:Encourage self breast examination; Encourage regular exercise Jordan Begum MD [address], [place], [address], [facility] 07/03/2023 10:27:22 07/08/2024 text/html Annual GYNReport ed bypatient.History:n o gynecologic complaints Menstrual cycle:Normal menses Urinary symptoms:No hematuria Vulva:No genital lesion Vagina:Normal vaginal discharge Breast:No breast pain; No breast lump Current Contraception:Satis fied with current contraception; Partner had vasectomy Sexual complaints:No sexual complaints; No pain during intercourse Menopausal Symptoms:No menopausal symptoms Psychological symptoms:No depression;Anxiety( txed) Preventive measures:Encourage self breast examination; Encourage regular exercise Jordan Begum MD [address], [place], [address], [facility] 07/08/2024 11:04:02 09/09/2024 text/html Patient here wit h c/o vaginal itchiness x 3-4 days. Patient also reports pelvic pressure and urinary hesitancy. Patient tried monistat, which only helped the symptoms temporarily. Patient states that she was on a 10 day course of antibiotics a month ago when she had her wisdom teeth removed. Denies discharge, odor, dysuria, frequency, urgency, or fever. CARLOS NAIK NP [address], [place], [address], [facility] 09/09/2024 17:53:10 OBGyn Episode Ob Episode Information Episode Created Date Number of Fetuses Patient Bloodtype Patient rh Status Prepregnancy Weight lbs Domestic Partner Domestic Partner Phone Father Name Engineering Administrator Status 01/06/20 20 1 133 CLOSED Fetus Data First Name Last Name Admitted to NICU Weight (g) Sex Living Outcome Pediatric Complications Fetus ID Race Codes Race Delivery Type 3005.04 7 F true Full Term 244 Primary Dat Calculation Initial Dat Date Initial Exam Date Initial Exam Provider Initial Ultrasound Date Last Menstrual Period Date Ultra Sound Weeks Gestation 01/13/2020 01/06/2020 04/08/2019 0 Eighteen To Twenty Week Dat Update Ultra Sound Date Fundal Height At Umbil Quickening Date Ultra Sound Latest Weeks Gestation Final Dat Confirmed By Final Dat Confirmed Date Final Dat Date Ultra Sound Latest Days Gestation 0 01/13/20 20 0 Pre- Flowsheet Flowsheet Date 01/06/2020 Mar Score Blood Edema Fundus Height Fundus Units Glucose Ketones Leukocytes Nitrite Labor Signs Protein Cervic Dilation Cervic Effacement Cervic Station none trace Type Weight in lbs Pre/Post Dialysis Refused Weight 166.248027781135 BP Diastolic BP Location Tested BP Systolic BP Type 83 136 sitting Fetus Heart Rate Present Fetus Movement Comments Flowsheet Date 01/15/2020 Mar Score Blood Edema Fundus Height Fundus Units Glucose Ketones Leukocytes Nitrite Labor Signs Protein Cervic Dilation Cervic Effacement Cervic Station Type Weight in lbs Pre/Post Dialysis Refused Weight 151.569947990289 BP Diastolic BP Location Tested BP Systolic BP Type 86 144 Fetus Heart Rate Present Fetus Movement Comments Flowsheet Date 02/06/2020 Mar Score Blood Edema Fundus Height Fundus Units Glucose Ketones Leukocytes Nitrite Labor Signs Protein Cervic Dilation Cervic Effacement Cervic Station Type Weight in lbs Pre/Post Dialysis Refused Weight 144.959108183515 BP Diastolic BP Location Tested BP Systolic BP Type 75 117 Fetus Heart Rate Present Fetus Movement Comments Flowsheet Date 02/24/2020 Mar Score Blood Edema Fundus Height Fundus Units Glucose Ketones Leukocytes Nitrite Labor Signs Protein Cervic Dilation Cervic Effacement Cervic Station Type Weight in lbs Pre/Post Dialysis Refused Weight 142.192748255172 BP Diastolic BP Location Tested BP Systolic BP Type 76 121 Fetus Heart Rate Present Fetus Movement Comments Menstrual History Last Menstrual Date Menses Monthly On Bcp Conception Prior Menses Frequency Hcg Plus Date Menarche Onset Age 0704/08/2019 Genetic Screening And Infection History Question Response Note Mental Retardation/Autism false Patient's Age Will Be 35 Years Or Older At Estim ated Date of Delivery false Thalassemia (Welsh, Romanian, Mediterranean, Or Background): MCV < 80 false Neural Tube Defect (Meningomyelocele, Spina Bifi da, Or Anencephaly) false Congenital Heart Defect false Down Syndrome false Cuauhtemoc-Sachs (eg, Caodaism, Cajun, Iranian-South Sudanese) f alse Evy Disease false Sickle Cell Disease Or Trait () false Hemophilia Or Other Blood Disorders false Muscular Dystrophy false Cystic Fibrosis false Potsdam's Chorea false Intellectual Disability/Autism false If Yes, Was Person Tested For Fragile X? false Other Inherited Genetic Or Chromosomal Disorder false Maternal Metabolic Disorder (eg, Type 1 Diabetes , PKU) false Patient Or Baby's Father Had A Child With Defects Not Listed Above false Recurrent Loss, Or A Stillbirth false Medications (including Suppl ements, Vitamins, Herbs, OTC Drugs), Illicit/Recreational Drugs, Alcohol false If Yes, Agent(s) And Strength/Dosage false Any Other Genetic History false Live With Someone With TB Or Exposed To TB false Patient Or Partner Has History Of Genital Herpes false Rash Or Viral Illness Since Last Menstrual Perio d false History Of STD, Gonorrhea, Chlamydia, HPV, Syphi lis false Other Infection History false History of HIV false History of Hepatitis false Prior GBS-infected child false Hemoglobinopathy Or Carrier false Other Structural Defect false Recent Travel History Outside of Country false Delivery Information Delivery Date Delivery Type Labor Anesthesia Weeks Gestation Incision Type Labor Labor Length Hrs Delivered By Post Complications Tubal Sterilization Discharge Date Comments 0 None Regional-Sp inal 39.2 Low Transvers e false Jordan Begum MD breech Discharge Information Feeding Method Contraceptive Method Maternal HG B and HCT Levels Ob Episode Information Episode Created Date Number of Fetuses Patient Bloodtype Patient rh Status Prepregnancy Weight lbs Domestic Partner Domestic Partner Phone Father Name Engineering Administrator Status 02/06/20 20 1 DELETED Dat Calculation Initial Dat Date Initial Exam Date Initial Exam Provider Initial Ultrasound Date Last Menstrual Period Date Ultra Sound Weeks Gestation 0 Eighteen To Twenty Week Dat Update Ultra Sound Date Fundal Height At Umbil Quickening Date Ultra Sound Latest Weeks Gestation Final Dat Confirmed By Final Dat Confirmed Date Final Dat Date Ultra Sound Latest Days Gestation 0 0 Menstrual History Last Menstrual Date Menses Monthly On Bcp Conception Prior Menses Frequency Hcg Plus Date Menarche Onset Age Delivery Information Delivery Date Delivery Type Labor Anesthesia Weeks Gestation Incision Type Labor Labor Length Hrs Delivered By Post Complications Tubal Sterilization Discharge Date Comments 0 39.2 breech Discharge Information Feeding Method Contraceptive Method Maternal HG B and HCT Levels Ob Episode Information Episode Created Date Number of Fetuses Patient Bloodtype Patient rh Status Prepregnancy Weight lbs Domestic Partner Domestic Partner Phone Father Name Engineering Administrator Status 08/05/20 21 1 A Negative 133 CLOSED Fetus Data First Name Last Name Admitted to NICU Weight (g) Sex Living Outcome Pediatric Complications Fetus ID Race Codes Race Delivery Type 3345.24 1 F true Full Term 04103 Repeat Problems Problem Notes 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 2018 Problem Name Start Date End Date Resolution Snomed Code Not e COVID-19 [id number] serial sarthak wth u/s and asa Impaired glucose tolerance in 859343734 Faile d 1hr GTT - passed 3hr delivery - delivered [id number] for breech, probably repeat ltcs Thrombophlebitis [id number] 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 [id number] Rhogam 11/29 Dat Calculation Initial Dat Date Initial Exam Date Initial Exam Provider Initial Ultrasound Date Last Menstrual Period Date Ultra Sound Weeks Gestation 02/13/2022 08/05/2021 07/05/2021 05/09/2021 8 Eighteen To Twenty Week Dat Update Ultra Sound Date Fundal Height At Umbil Quickening Date Ultra Sound Latest Weeks Gestation Final Dat Confirmed By Final Dat Confirmed Date Final Dat Date Ultra Sound Latest Days Gestation 0 [email or web address] 08/05/2021 02/14/20 22 0 Pre-tyler Flowsheet Flowsheet Date 08/05/2021 Mar Score Blood Edema Fundus Height Fundus Units Glucose Ketones Leukocytes Nitrite Labor Signs Protein Cervic Dilation Cervic Effacement Cervic Station 12 Type Weight in lbs Pre/Post Dialysis Refused Weight 136.190413200156 BP Diastolic BP Location Tested BP Systolic BP Type 75 R arm 122 sitting Fetus Heart Rate Present A 155 Fetus Movement Comments this patient is a 30-year-ol d 2 para 1001 at 12 weeks gestation she has a history of a term delivery for breech. Otherwise she had an uncomplicated . We discussed her ultrasound results today, we discussed care, we discussed vaccinations. She will begin routine care. Flowsheet Date 09/04/2021 Mar Score Blood Edema Fundus Height Fundus Units Glucose Ketones Leukocytes Nitrite Labor Signs Protein Cervic Dilation Cervic Effacement Cervic Station 16 Type Weight in lbs Pre/Post Dialysis Refused Weight 140.309610584793 BP Diastolic BP Location Tested BP Systolic BP Type 67 R arm 119 sitting Fetus Heart Rate Present A 141 Fetus Movement A No Comments no complaints, discussed alp guzman protein, needs alpha fetoprotein at next visit. Today's visit was Monday visit Flowsheet Date 10/13/2021 Mar Score Blood Edema Fundus Height Fundus Units Glucose Ketones Leukocytes Nitrite Labor Signs Protein Cervic Dilation Cervic Effacement Cervic Station Type Weight in lbs Pre/Post Dialysis Refused BP Diastolic BP Location Tested BP Systolic BP Type Fetus Heart Rate Present Fetus Movement Comments Flowsheet Date 10/13/2021 Mar Score Blood Edema Fundus Height Fundus Units Glucose Ketones Leukocytes Nitrite Labor Signs Protein Cervic Dilation Cervic Effacement Cervic Station 22 trace neg Type Weight in lbs Pre/Post Dialysis Refused Weight 143.701192379915 BP Diastolic BP Location Tested BP Systolic BP Type 69 112 Fetus Heart Rate Present A 140 Fetus Movement A Yes Comments PATIENT REPORTS TENDER VEIN PATTERNS ON THE SERVICE OF HER LEG. Appears to be consistent with thrombophlebitis. She was given recommendations of support hose and applying heat and Tylenol, baseline anatomy scan was normal today. Flowsheet Date 11/01/2021 Mar Score Blood Edema Fundus Height Fundus Units Glucose Ketones Leukocytes Nitrite Labor Signs Protein Cervic Dilation Cervic Effacement Cervic Station neg none 25 none neg Type Weight in lbs Pre/Post Dialysis Refused Weight 151.790526703289 BP Diastolic BP Location Tested BP Systolic BP Type 79 R arm 137 sitting Fetus Heart Rate Present A 135 Fetus Movement A Yes Comments upper respiratory congestion , recommended nasal steroid, Zyrtec. COVID infection September, to start baby aspirin, Rh negative, labs at the hospital in 3 weeks. Flowsheet Date 11/22/2021 Mar Score Blood Edema Fundus Height Fundus Units Glucose Ketones Leukocytes Nitrite Labor Signs Protein Cervic Dilation Cervic Effacement Cervic Station Type Weight in lbs Pre/Post Dialysis Refused BP Diastolic BP Location Tested BP Systolic BP Type Fetus Heart Rate Present Fetus Movement Comments Flowsheet Date 11/22/2021 Mar Score Blood Edema Fundus Height Fundus Units Glucose Ketones Leukocytes Nitrite Labor Signs Protein Cervic Dilation Cervic Effacement Cervic Station 28 Type Weight in lbs Pre/Post Dialysis Refused Weight 156.743873455019 BP Diastolic BP Location Tested BP Systolic BP Type 73 R arm 135 sitting Fetus Heart Rate Present A 145 Fetus Movement Comments no complaints, veins stable, asa and serial growth, Flowsheet Date 12/06/2021 Mar Score Blood Edema Fundus Height Fundus Units Glucose Ketones Leukocytes Nitrite Labor Signs Protein Cervic Dilation Cervic Effacement Cervic Station 30 Type Weight in lbs Pre/Post Dialysis Refused Weight 157.951363031598 BP Diastolic BP Location Tested BP Systolic BP Type 73 R arm 121 sitting Fetus Heart Rate Present A 145 Fetus Movement Comments no complaints, veins stable, asa and serial growth, Flowsheet Date 12/29/2021 Mar Score Blood Edema Fundus Height Fundus Units Glucose Ketones Leukocytes Nitrite Labor Signs Protein Cervic Dilation Cervic Effacement Cervic Station Type Weight in lbs Pre/Post Dialysis Refused BP Diastolic BP Location Tested BP Systolic BP Type Fetus Heart Rate Present Fetus Movement Comments Flowsheet Date 12/29/2021 Mar Score Blood Edema Fundus Height Fundus Units Glucose Ketones Leukocytes Nitrite Labor Signs Protein Cervic Dilation Cervic Effacement Cervic Station 33 Type Weight in lbs Pre/Post Dialysis Refused Weight 159.222990263744 BP Diastolic BP Location Tested BP Systolic BP Type 75 R arm 125 sitting Fetus Heart Rate Present A 145 Fetus Movement Comments no problems, Flowsheet Date 01/17/2022 Mar Score Blood Edema Fundus Height Fundus Units Glucose Ketones Leukocytes Nitrite Labor Signs Protein Cervic Dilation Cervic Effacement Cervic Station Type Weight in lbs Pre/Post Dialysis Refused BP Diastolic BP Location Tested BP Systolic BP Type Fetus Heart Rate Present Fetus Movement Comments Flowsheet Date 01/17/2022 Mar Score Blood Edema Fundus Height Fundus Units Glucose Ketones Leukocytes Nitrite Labor Signs Protein Cervic Dilation Cervic Effacement Cervic Station 1+ 36 none neg Type Weight in lbs Pre/Post Dialysis Refused Weight 163.314656603096 BP Diastolic BP Location Tested BP Systolic BP Type 72 L arm 124 sitting Fetus Heart Rate Present A 145 Fetus Movement A Yes Comments patient has unilateral swell ing of her right lower extremity. It is below the calf. She has no Homans signs. There is some numbness in her feet and she does have some prominent thrombophlebitis of the superficial vein is not works. To get right lower extremity Doppler. GBS performed today. Estimated weight in the 79th percentile. Flowsheet Date 01/24/2022 Mar Score Blood Edema Fundus Height Fundus Units Glucose Ketones Leukocytes Nitrite Labor Signs Protein Cervic Dilation Cervic Effacement Cervic Station 37 Type Weight in lbs Pre/Post Dialysis Refused Weight 164.33173294832 BP Diastolic BP Location Tested BP Systolic BP Type 80 R arm 131 sitting Fetus Heart Rate Present A 145 Fetus Movement Comments Stable, routine care, GBS po sitive Flowsheet Date 02/02/2022 Mar Score Blood Edema Fundus Height Fundus Units Glucose Ketones Leukocytes Nitrite Labor Signs Protein Cervic Dilation Cervic Effacement Cervic Station 38 Type Weight in lbs Pre/Post Dialysis Refused Weight 163.872737448431 BP Diastolic BP Location Tested BP Systolic BP Type 82 R arm 134 sitting Fetus Heart Rate Present A 145 Fetus Movement Comments no complaints, good mo vement, no contractions, no loss of fluid. Flowsheet Date 02/07/2022 Mar Score Blood Edema Fundus Height Fundus Units Glucose Ketones Leukocytes Nitrite Labor Signs Protein Cervic Dilation Cervic Effacement Cervic Station Type Weight in lbs Pre/Post Dialysis Refused BP Diastolic BP Location Tested BP Systolic BP Type Fetus Heart Rate Present Fetus Movement Comments Flowsheet Date 02/14/2022 Mar Score Blood Edema Fundus Height Fundus Units Glucose Ketones Leukocytes Nitrite Labor Signs Protein Cervic Dilation Cervic Effacement Cervic Station Type Weight in lbs Pre/Post Dialysis Refused Weight 149.757517301314 BP Diastolic BP Location Tested BP Systolic BP Type 79 R arm 129 sitting Fetus Heart Rate Present Fetus Movement Comments Menstrual History Last Menstrual Date Menses Monthly On Bcp Conception Prior Menses Frequency Hcg Plus Date Menarche Onset Age 0805/09/2021 Genetic Screening And Infection History Question Response Note Mental Retardation/Autism false Patient's Age Will Be 35 Years Or Older At Estim ated Date of Delivery false Thalassemia (Welsh, Romanian, Mediterranean, Or Background): MCV < 80 false Neural Tube Defect (Meningomyelocele, Spina Bifi da, Or Anencephaly) false Congenital Heart Defect false Down Syndrome false Cuauhtemoc-Sachs (eg, Caodaism, Cajun, Iranian-South Sudanese) f alse Evy Disease false Sickle Cell Disease Or Trait () false Hemophilia Or Other Blood Disorders false Muscular Dystrophy false Cystic Fibrosis false Potsdam's Chorea false Intellectual Disability/Autism false If Yes, Was Person Tested For Fragile X? false Other Inherited Genetic Or Chromosomal Disorder false Maternal Metabolic Disorder (eg, Type 1 Diabetes , PKU) false Patient Or Baby's Father Had A Child With Defects Not Listed Above false Recurrent Loss, Or A Stillbirth false Medications (including Suppl ements, Vitamins, Herbs, OTC Drugs), Illicit/Recreational Drugs, Alcohol false If Yes, Agent(s) And Strength/Dosage false Any Other Genetic History false Live With Someone With TB Or Exposed To TB false Patient Or Partner Has History Of Genital Herpes false Rash Or Viral Illness Since Last Menstrual Perio d false History Of STD, Gonorrhea, Chlamydia, HPV, Syphi lis false Other Infection History false History of HIV false History of Hepatitis false Prior GBS-infected child false Hemoglobinopathy Or Carrier false Other Structural Defect false Recent Travel History Outside of Country false Delivery Information Delivery Date Delivery Type Labor Anesthesia Weeks Gestation Incision Type Labor Labor Length Hrs Delivered By Post Complications Tubal Sterilization Discharge Date Comments 2 None Regional-Sp inal 39.1 Low Transvers e false Jordan Begum MD Gbs+ & prev Discharge Information Feeding Method Contraceptive Method Maternal HG B and HCT Levels
--- OUTSIDE RECORDS SUMMARY | 2025-03-03 14:36 | XMS_ITS | Clinical Summary ---
Author Organization [facility] Care Team Providers Care Paraplanner Name Role Phone Unavailable Primary Care Provider Unavailabl e Social History Tobacco Use Types Packs/Day Years Used Date Smoking Tobacco: Never Assessed Comments Unknown Sex and Gender Information Value Date Recorded Sex Assigned at Not on file Legal Sex Female 11:19 AM MEDICAL AUTHORIZATION SPECIALIST Gender Identity Not on file Sexual Orientation [...]
--- OUTSIDE RECORDS SUMMARY | 2025-03-03 14:36 | XMS_ITS | Clinical Summary ---
Author Organization [facility] Address [address] [place] [address] Care Team Providers Care Senior Asic Engineer Name Role Phone Caleb Wei MD Primary Care Provider [phone] Allergies No known active allergies Medications valACYclovir (VALTREX) 1 gram tablet TK 2 TS PO BID FOR 1 DAY 3 9 Active vit 05-cnop-ktrct-d guzman 27mg iron- 800 mcg-250 mg capsule [...] Comments Blood Pressure 118/78 11/15/2022 3:32 PM EXTERMINATOR HELPER Pulse 75 11/15/2022 3:32 PM EXTERMINATOR HELPER Temperature 36.5 C (97.7 F) 11/15/2022 3:32 PM EXTERMINATOR HELPER Respiratory Rate 20 11/15/2022 3:32 PM EXTERMINATOR HELPER Oxygen Saturation 99% 11/15/2022 3:32 PM EXTERMINATOR HELPER Inhaled Oxygen Concentration - - Weight 58.1 kg (128 lb) 11/15/2022 3:32 PM EXTERMINATOR HELPER Height 162.6 cm (5' 4) 11/15/2022 3:32 PM EXTERMINATOR HELPER Body Mass Index 21.97 11/15/2022 3:32 PM EXTERMINATOR HELPER Plan of Treatment Health Maintenance Due Date [...] to complete this topic Insurance Care Teams Senior Asic Engineer Relationship Specialty Start Date End Date Caleb Wei MD PCP - General Internal Medicine 03/19/19
--- OUTSIDE RECORDS SUMMARY | 2025-03-03 14:36 | XMS_ITS | CONTINUITY OF CARE DOCUMENT ---
Author Name mario martin Address Unknown Organization [facility] Address [address] [place] [address] Phone [phone] Care Team Providers Care Switch Foreman Name Role Phone Julio Chadwick MD Unavailable [phone] Caleb Wei MD Unavailable PROBLEMS Condition Status Date Provider Notes Cardiology examination active Krishna Freeman ri Palpitations active Krishna Ann Marie CHEST PAIN active Krishna Ann Marie ENCOUNTERS Date Type Provider Location Encounter Diag nosis - In-person encounter Office Visit Julio Chadwick MD [facility] Cardiology examinationPalpitationsCHEST PAIN VITAL SIGNS Date [...] Coverage type Concepción red green party ID [facility] [id number] Other [id number] ADVANCE DIRECTIVES Name Date DISCUSSED - NO DECISION MADE TREATMENT PLAN Date Name Performer [id number],W,Will obtain e cho, carotid duplex, RPM Krishna Ann Marie [id number],W,. Also can have very rapid Heart rate [...]
--- OUTSIDE RECORDS SUMMARY | 2025-03-03 14:36 | XMS_ITS | Referral Summary ---
Author Organization [facility] Address [facility] [place] [address] Care Team Providers Care Assembly And Packing Supervisor Name Role Phone Caleb Wei MD Primary Care Provider [phone] Allergies No known active allergies Medications valACYclovir (VALTREX) 1 gram tablet TK 2 TS PO BID FOR 1 DAY 3 9 Active vit 79-bbsk-wcxpn-d guzman 27mg iron- 800 mcg-250 mg capsule [...] Comments Blood Pressure 118/78 11/15/2022 3:32 PM CLAY TRANSPORTER Pulse 75 11/15/2022 3:32 PM CLAY TRANSPORTER Temperature 36.5 C (97.7 F) 11/15/2022 3:32 PM CLAY TRANSPORTER Respiratory Rate 20 11/15/2022 3:32 PM CLAY TRANSPORTER Oxygen Saturation 99% 11/15/2022 3:32 PM CLAY TRANSPORTER Inhaled Oxygen Concentration - - Weight 58.1 kg (128 lb) 11/15/2022 3:32 PM CLAY TRANSPORTER Height 162.6 cm (5' 4) 11/15/2022 3:32 PM CLAY TRANSPORTER Body Mass Index 21.97 11/15/2022 3:32 PM CLAY TRANSPORTER Plan of Treatment Not on file Insurance [facility] [place] [address] [facility] Care Teams Assembly And Packing Supervisor Relationship Specialty Start Date End Date Caleb Wei MD PCP - General Internal Medicine 03/19/19
[2025-03-03 14:40] LABS: Free T4 Free Thyroxine 0.84 ng/dL (0.78-2.19)
[2025-03-03 14:54] LABS: Total Triiodothyronine (T3) 1.07 NG/ML (0.82-1.58)
== END 2025-03-03 13:14 | disposition home or self-care (01) ==
PROVIDERS: PCP Internal Medicine; Visit Provider Internal Medicine
DX: R79.89 Other specified abnormal findings of blood chemistry (principal)
CPT/HCPCS: 36415; 84439; 84480

== ENCOUNTER 2025-04-29 15:12 | Outpatient (CLI) | payer OTHER, SELFPAY ==
--- OUTSIDE RECORDS SUMMARY | 2025-04-29 15:17 | XMS_ITS | Clinical Summary ---
Author Organization [facility] Care Team Providers Care Tool Planer Set Up Operator Name Role Phone Unavailable Primary Care Provider Unavailabl e Social History Tobacco Use Types Packs/Day Years Used Date Smoking Tobacco: Never Assessed Comments Unknown Sex and Gender Information Value Date Recorded Sex Assigned at Not on file Legal Sex Female 11:19 AM EQUIPMENT WORKER Gender Identity Not on file Sexual Orientation Not on file Plan of Treatment Health Maintenance Due Date Last Done Comments Hepatitis C Virus (HCV) Screening 1992 Hepatitis B Immunization (1 of 3 - 19+ 3-dose series) 2011 Pap Smear 2013 Human Papillomavirus (HPV) Immunization (1 - 3-dose SCDM series) 2019 Cervical Cancer Screening (CCS) 2022 HPV/Cotest 2022 SARS-COV-2 Immunization (2023- season) 2024 Influenza Immunization (#1) 05/26/202507/26, 2019 Respiratory Syncytial Virus (RSV) Immunization (Adult) (1 [...]
--- OUTSIDE RECORDS SUMMARY | 2025-04-29 15:17 | XMS_ITS | Encounter Summary ---
Author Organization [facility] Address [address] [place] [address] Care Team Providers Care Superintendent Meter Tests Name Role Phone Boone Bellamy MD Primary Care Provider [phone] Encounter Details Date Type Department Care Team (Late st Contact Info) Description 02/06/2020 Lab Requisition [facility] [address] [facility] [place] [id number] Ginette Davis MD [address] [facility] [address] [place] [address] Social History Tobacco Use Types Packs/Day Years [...] AM CDT) Case Report Dermatopathology Report Case: [id number] Authorizing Provider: Ginette Davis MD Collected: 02/05/2020 12:00 AM Ordering Location: [facility] Received: 02/06/2020 10:25 AM Pathologist: Araseli Fraire MD Specimens: A) - Skin, central chest B) - Skin, central abd 0 12:23 PM CDT DERMATOPATHOLOGY LABORATORY Addendum 1 At the request of the diagnosing physician, technical component for Burgin/Melan A was performed on specimen B at [facility]. 0 12:23 PM CDT DERMATOPATHOLOGY LABORATORY Addendum electronically signed by Araseli Fraire MD on 02/10/2020 at 1223 CDT Clinical History A-B: R/O nevus, irregular border, irregular color. 0 12:23 PM CDT DERMATOPATHOLOGY LABORATORY Gross Description Specimen A: Received is one formalin filled container labeled with the patient's name and designated central chest. The specimen consists of a shave measuring [id number]. Jar 0. Specimen B: Received is one formalin filled container labeled with the patient's name and designated central abd. The specimen consists of a shave measuring [id number]. Jar 0. [facility] performed the technical component only. [...] characteristic determined by the Dermatopathology Laboratory at [facility], directed by Dr. Krista Kenr. These tests need not be, and therefore [...] DERABLES Edited Result - Final DERMATOPATHOLOGY LABORATORY [facility] - Department of Dermatology [facility] [place] [address], [facility] [phone] documented in this encounter Visit Diagnoses Not on filedocumented in this encounter Care Teams Superintendent Meter Tests Relationship Specialty Start Date End Date Boone Bellamy MD [address] [facility] [address] [place] [address] PCP - General 02/05/20 01/07/25 documented as of this encounter
--- OUTSIDE RECORDS SUMMARY | 2025-04-29 15:17 | XMS_ITS | Clinical Summary ---
Author Organization [facility] Address [facility] [place] [address] Care Team Providers Care Reservations And Ticketing Agent Name Role Phone Caleb Wei MD Primary Care Provider Allergies No known active allergies Medications valACYclovir (VALTREX) 1 gram tablet TK 2 TS PO BID FOR 1 DAY 3 9 Active vit 08-pccq-ndwqf-d guzman 27mg iron- 800 mcg-250 mg capsule [...] Globus sensation 10/04/2022 Epigastric abdominal pain 10/04/2022 Encounters Date Type Department Care Team Description 03/31/2025 10:35 AM CDT Ancillary Procedure [facility] Imaging at [address] [address] Left hip pain 03/31/2025 10:30 AM CDT Office Visit [facility] Sports Medicine and Primary Care at [address] [place] [address] Vinicius Fam, Left hip pain (Primary Dx); Chronic left-sided low back pain with left-sided sciatica; Strain of left hamstring muscle, initial encounter from Last 3 Months Surgical History Surgery Date Site/Laterality Comments APPENDECTOMY [...] Answer Date Recorded Getting School Help Needed Denies 09/08 Comments Unknown Sex and Gender Information Value Date Recorded Sex Assigned at Not on file Legal Sex Female 4:26 PM CDT Gender Identity Not on file Sexual Orientation Not on file Obstetrics History Last Filed Vital Signs Vital Sign Reading Time Taken Comments Blood Pressure 129/81 03/31/2025 10:44 AM CDT Pulse 81 03/31/2025 10:44 AM CDT Temperature 36.5 C (97.7 F) 11/15/2022 3:32 PM [employer] Respiratory Rate 20 11/15/2022 3:32 PM [facility] Oxygen Saturation 99% 11/15/2022 3:32 PM [employer] Inhaled Oxygen Concentration - - Weight 62.1 kg (137 lb) 03/31/2025 10:44 AM CDT Height 162.6 cm (5' 4) 03/31/2025 10:44 AM CDT Body Mass Index 23.52 03/31/2025 10:44 AM CDT Plan of Treatment Health Maintenance Due Date Last Done Comments Cervical Cancer Screening 1992 Hepatitis C Screening 1992 Varicella Vaccines (1 of 2 - 13+ 2-dose series) 2005 Hepatitis B Screening 2010 Regular Well Visit/Exam 18-64 2010 HPV Vaccines (1 - 3-dose SCD M series) 2019 Depression Screening 10/04/2023 10/04/2022 Covid-19 Vaccine (3 - 2023-2 5 season) 2024 11/24/2020, 10/22/2020 Influenza Vaccine (#1) 2025 , 08/04/2020, 2019 DTaP/Tdap/Td Vaccine (3 - Td or Tdap) 11/28/2031 11/27/2021, 10/22/2019 Pneumococcal vaccine <65 Aged Out No longer eligible based on patient's age to complete this topic Procedures Procedure Name Priority Date/Time Associated Diagnosis Comments XR HIP LEFT 2 OR 3 VIEWS Schedule Routine, Read Routine (OP Routine) 03/31/2025 10:42 AM CDT Left hip pain from Last 3 Months Results * XR Hip Left 2 or 3 Views (03/31/2025 10:42 AM CDT) Anatomical Region Laterality Modality Lower Extremities, Hip, Pelvis Left D igital Radiography 03/31/2025 4:29 PM CDT Narrative 03/31/2025 4:30 PM CDT EXAM DESCRIPTION: XR HIP LEFT 2 OR 3 VIEWS REASON FOR STUDY: pain Pt complains of chronic left hip pain after injuring it about a year ago sliding into a base. No prior surgery or recent injury TECHNIQUE: There are 2 radiographic view(s) of the left hip and single view pelvis. COMPARISON: No prior. FINDINGS: Left hip: Normal mineralization. No acute fracture or dislocation. Joint spaces are intact. Soft tissues are unremarkable. Pelvis: No acute fracture. Joint spaces are intact and soft tissues are unremarkable. IMPRESSION: No acute osseous abnormality. THIS IS AN ELECTRONICALLY VERIFIED FINAL REPORT 03/31/2025 4:30 PM - Electronically signed by Vinicius Ramsey: 03/31/2025 4:30 PM T: Report ID: [id number] Reading Location: [id number] Procedure Note Vinicius Meredith MD - 03/31/2025 EXAM DESCRIPTION: XR HIP LEFT 2 OR 3 VIEWS REASON FOR STUDY: pain Pt complains of chronic left hip pain after injuring it about a year ago sliding into a base. No prior surgery or recent injury TECHNIQUE: There are 2 radiographic view(s) of the left hip and singleview pelvis. COMPARISON: No prior. FINDINGS: Left hip: Normal mineralization. No acute fracture or dislocation. Joint spacesare intact. Soft tissues are unremarkable. Pelvis: No acute fracture. Joint spaces are intact and soft tissues areunremarkable. IMPRESSION: No acute osseous abnormality. THIS IS AN ELECTRONICALLY VERIFIED FINAL REPORT 03/31/2025 4:30 PM - Electronically signed by Vinicius MEZA T: Report ID: [id number] Reading Location: [id number] Vinicius Fam DO IMG XR PROCEDURES Nakia l Result from Last 3 Months Insurance [facility] CHOICE [place] [address] [address] CHOICE PLUS [facility] CHOICE PLUS Care Teams Reservations And Ticketing Agent Relationship Specialty Start Date End Date Caleb Wei MD PCP - General Internal Medicine 03/19/19
--- OUTSIDE RECORDS SUMMARY | 2025-04-29 15:17 | XMS_ITS | Referral Summary ---
Author Organization [facility] Address [facility] [place] [address] Care Team Providers Care Mixing Picker Tender Name Role Phone Caleb Wei MD Primary Care Provider [phone] Encounters Date Type Department Care Team Description 03/31/2025 10:35 AM CDT Ancillary Procedure [facility] Imaging at [address] [address] Left hip pain 03/31/2025 10:30 AM CDT Office Visit [facility] Sports Medicine and Primary Care at [address] [place] [address] Vinicius Fam DO Left hip pain (Primary Dx); Chronic left-sided low back pain with left-sided sciatica; Strain of left hamstring muscle, initial encounter from Last 3 Months Allergies No known active allergies Medications valACYclovir (VALTREX) 1 gram tablet TK 2 TS PO BID FOR 1 DAY 3 9 Active vit 34-xrfh-dfupf-d guzman 27mg iron- 800 mcg-250 mg capsule [...] BY MOUTH DAILY BEFORE BREAKFAST 90 capsule Active Active Problems Problem Noted Date Diagnosed [...] 36.5 C (97.7 F) 11/15/2022 3:32 PM [employer] Respiratory Rate 20 11/15/2022 3:32 PM [employer] Oxygen Saturation 99% 11/15/2022 3:32 PM [employer] Inhaled Oxygen Concentration - - Weight 62.1 kg (137 lb) 03/31/2025 10:44 AM CDT Height 162.6 cm (5' 4) 03/31/2025 10:44 AM CDT Body Mass Index 23.52 03/31/2025 10:44 AM CDT Plan of Treatment Not on file Procedures Procedure Name Priority Date/Time Associated Diagnosis [...] signed by Vinicius MEZA T: Report ID: [id number] Reading Location: [id number] Procedure Note Vinicius Meredith MD - 03/31/2025 [...] signed by Vinicius MEZA T: Report ID: [id number] Reading Location: [id number] Vinicius Jesus Messmer DO IMG XR PROCEDURES Nakia l Result from Last 3 Months Insurance [facility] Address: [place] [address] [facility] [place]: [place] [address] [facility] CHOICE PLUS [facility] Address: [address] [address] [place] [address] Care Teams Mixing Picker Tender Relationship Specialty Start Date End Date Caleb Wei MD PCP - General Internal Medicine 03/19/19
--- OUTSIDE RECORDS SUMMARY | 2025-04-29 15:17 | XMS_ITS | Clinical Summary ---
Author Organization [facility] Address [address] [place] [address] Care Team Providers Care Production Machine Computer Operator Name Role Phone Caleb Wei MD Primary Care Provider [phone] Social History Tobacco Use Types Packs/Day Years Used Date Smoking Tobacco: Never Assessed Comments Unknown Sex and Gender Information Value Date Recorded Sex Assigned at Not on file Legal Sex Female 3:58 PM [employer]CHO[employer] SUPERINTENDENT Gender Identity Not on file Sexual Orientation Not on file Plan of Treatment Health Maintenance Due Date Last Done Comments Annual Physical 1995 Hepatitis C 2010 Hepatitis B Vaccines (1 of 3 - 19+ 3-dose series) 2011 HPV Vaccines (1 - 3-dose SCD M series) 2019 Cervical Cancer Screening Pa p with HPV Testing (Age 30 to 64) Every 5 Years 2022 COVID-19 Vaccine (3 - 2023-2 5 season) 2024 11/24/2020, 10/22/2020 Cervical Cancer Screening Pa p Smear (Age 30 to 64) Every 3 Years 06/07/2025 06/07/2022 Cervical Cancer Screening wi th HPV 06/07/2025 DTaP, Tdap and Td Vaccines ( 3 - Td or Tdap) 11/28/2031 11/27/2021, 10/22/2019 Meningococcal B Vaccine Aged Out No l onger eligible based on patient's age to complete this topic Meningococcal Vaccine Aged Out No madelaine barrie eligible based on patient's age to complete this topic Pneumococcal Vaccine: Pediatrics (0 to 5 Years) and At-Risk Patients (6 to 49 Years) Aged Out No longer eligible b ased on patient's age to complete this topic RSV Immunizations Under 20 Months Aged Out No longer eligible b ased on patient's age to complete this topic Insurance [facility] Care Teams Production Machine Computer Operator Relationship Specialty Start Date End Date Caleb Wei MD PCP - General INTERNAL MEDICINE 07/20/22
--- OUTSIDE RECORDS SUMMARY | 2025-04-29 15:17 | XMS_ITS | Clinical Summary ---
Author Organization [facility] Address [address] [place] [address] Care Team Providers Care Radiator Specialist Name Role Phone Unavailable Primary Care Provider Unavailabl e Source Comments [facility],non-owned Affiliates and Associated Physician Practices is amultiple site organization consisting of ambulatory clinics and hospital sitesin [place], [place], [place] and [place]. This disclosure is being madepursuant to the Care Everywhere program and may not contain all information available regarding this patient. Last updated 18.[employer] Social History Tobacco Use Types Packs/Day Years [...] 3 - 19+ 3-dose series) 2011 HPV VACCINE (1 - 3-dose SCDM series) 2019 COVID-19 VACCINE (1 - 2023-2 5 season) 2024 DEPRESSION SCREENING 09/25/2024 INFLUENZA VACCINE (#1) 2025 ZOSTER VACCINE (1 of 2) 2042 [...] patient's age to complete this topic Insurance [facility]
[2025-04-29 16:37] LABS: Free T4 Free Thyroxine 0.89 ng/dL (0.78-2.19)
[2025-04-29 16:52] LABS: Total Triiodothyronine (T3) 1.11 NG/ML (0.82-1.58)
[2025-04-30 14:33] LABS: Thyroid Stimulating Hormone 1.050 uIU/mL (0.465-4.680)
== END 2025-04-29 15:13 | disposition home or self-care (01) ==
LOC: ANHLAB 15:13
PROVIDERS: PCP Internal Medicine; Visit Provider Internal Medicine
DX: R79.89 Other specified abnormal findings of blood chemistry (principal)
CPT/HCPCS: 36415; 84439; 84443; 84480